=== PATIENT | female | born 1990 | race Caucasian/White ===

== ENCOUNTER → 2022-02-28 09:26 | Outpatient (CLI) | payer OTHER, SELFPAY ==
[2022-02-28 10:57] LABS: Add Manual Diff / Slide Review NO; Basophils Absolute Auto 0 /uL (0-100); Basophils Percent Auto 0.3 % (0-2); Eosinophils Absolute Auto 200 /uL (0-450); Eosinophils Percent Auto 1.8 % (2-4); Hemoglobin 11.7 g/dL (12.0-16.0); Lymphocytes Absolute Auto 1600 /uL (1100-4500); Lymphocytes Percent Auto 16.9 % (25-40); Mean Corpuscular HGB Conc 34.5 % (30-36); Mean Corpuscular Hemoglobin 32.7 PG (26-34); Mean Corpuscular Volume 94.7 fL (80-100); Monocytes Absolute Auto 700 /uL (0-900); Monocytes Percent Auto 7.2 % (3-14); Neutrophils Absolute Auto 6900 /uL (1500-7000); Neutrophils Percent Auto 73.8 % (50-75); Platelet Count 294 X10^3/uL (150-400); Red Blood Cell Count 3.59 X10^6/uL (4.0-5.2); Red Cell Distribution Width 13.1 % (11.6-14.8); White Blood Cell Count 9.3 X10^3/uL (4.5-11.0)
[2022-02-28 11:59] LABS: Alanine Aminotransferase 11 IU/L (<35); Albumin 3.6 g/dL (3.5-5.0); Albumin Globulin Ratio 1.2 (1.0-2.8); Alkaline Phosphatase 53 U/L (38-126); Aspartate Aminotransferase 23 IU/L (14-36); BUN Creatinine Ratio 12.3 (6-22); Bilirubin Total 0.2 mg/dL (0.2-1.3); Blood Urea Nitrogen 7 mg/dL (7-17); Calcium 8.3 mg/dL (8.4-10.2); Carbon Dioxide 26 mmol/L (22-32); Chloride 103 mmol/L (98-107); Estimated Glomerular Filt Rate > 60 mL/min (>60); GTT (PREG) 1 Hour PP 50gm Dose 132 mg/dL (76-139); Globulin 2.9 g/dL (1.7-4.1); Glucose 132 mg/dL (70-100); HEMOLYSIS < 15 (0-50); Potassium 4.1 mmol/L (3.4-5.1); Sodium 133 mmol/L (137-145); Total Protein 6.5 g/dL (6.3-8.2); Uric Acid 3.3 mg/dL (2.5-6.2)
== END ==
PROVIDERS: PCP Family Medicine; Referring Provider Obstetrics & Gynecology; Visit Provider Obstetrics & Gynecology
DX: O09.299 Supervision of pregnancy with other poor reproductive or obstetric history, unspecified trimester (principal)
CPT/HCPCS: 36415; 80053; 82950; 84550; 85025

== ENCOUNTER → 2022-04-02 07:47 | Outpatient (CLI) | payer OTHER, SELFPAY | PROVIDERS: PCP Pediatrics; Visit Provider Student in an Organized Health Care Education/Training Program | DX: R30.0 Dysuria (principal) | CPT/HCPCS: 87086 ==

== ENCOUNTER 2022-04-14 14:33 | Outpatient (CLI) | payer OTHER, SELFPAY ==
[2022-04-14 15:13] LABS: Add Manual Diff / Slide Review NO; Basophils Absolute Auto 0 /uL (0-100); Basophils Percent Auto 0.3 % (0-2); Eosinophils Absolute Auto 100 /uL (0-450); Eosinophils Percent Auto 1.3 % (2-4); Hematocrit 34.8 % (36-46); Hemoglobin 11.8 g/dL (12.0-16.0); Lymphocytes Absolute Auto 1400 /uL (1100-4500); Lymphocytes Percent Auto 13.4 % (25-40); Mean Corpuscular HGB Conc 33.9 % (30-36); Mean Corpuscular Hemoglobin 32.2 PG (26-34); Monocytes Absolute Auto 500 /uL (0-900); Monocytes Percent Auto 4.6 % (3-14); Neutrophils Absolute Auto 8600 /uL (1500-7000); Neutrophils Percent Auto 80.4 % (50-75); Platelet Count 286 X10^3/uL (150-400); Red Blood Cell Count 3.66 X10^6/uL (4.0-5.2); Red Cell Distribution Width 13.1 % (11.6-14.8); White Blood Cell Count 10.7 X10^3/uL (4.5-11.0)
[2022-04-14 16:12] LABS: Aspartate Aminotransferase 25 IU/L (14-36); BUN Creatinine Ratio 13.7 (6-22); Blood Urea Nitrogen 7 mg/dL (7-17); Estimated Glomerular Filt Rate > 60 mL/min (>60)
[2022-04-14 20:16] LABS: Protein (Total) Urine Random < 5 mg/dL (0-12); Protein Creatinine Ratio Urine 0.03 GRAM/24H
== END 2022-04-14 16:03 | disposition home or self-care (01) ==
LOC: LABOR 15:39 → OB 04-18 12:53
PROVIDERS: Referring Provider Obstetrics & Gynecology; Visit Provider Obstetrics & Gynecology
DX: Z34.83 Encounter for supervision of other normal pregnancy, third trimester (principal); Z3A.33 33 weeks gestation of pregnancy
CPT/HCPCS: 59025; 82570; 84156; 84450; 84550; 85025; G0378; G0379

== ENCOUNTER 2022-04-20 12:44 | Outpatient (CLI) | payer OTHER, SELFPAY | END 2022-04-20 13:20 | disposition home or self-care (01) | LOC: LABOR 13:52 → OB 04-25 10:15 | PROVIDERS: Referring Provider Obstetrics & Gynecology; Visit Provider Obstetrics & Gynecology | DX: O13.3 Gestational [pregnancy-induced] hypertension without significant proteinuria, third trimester (principal); Z3A.34 34 weeks gestation of pregnancy | CPT/HCPCS: 59025; G0378; G0379 ==

== ENCOUNTER → 2022-04-21 14:45 | Outpatient (CLI) | payer OTHER, SELFPAY ==
--- NOTE | 2022-04-21 14:46 | DI.US.S_ITS ---
PROCEDURE: US OB LIMITED INDICATIONS: Low lying placenta on 20 wk anatomy scan OUTSIDE/PRIOR DATING DATA: Last menstrual period (LMP): 08/21/2021 LMP-based estimated date of delivery (ODILIA): 05/28/2021. TECHNIQUE: Real-time scanning was performed of the fetus, with image documentation. COMPARISON: None. FINDINGS: A single living intrauterine gestation is present. Presentation: Vertex. Placenta: Placental position is posterior, without previa. Amniotic fluid index: 12.6 cm, normal range is 5-24 cm. heart rate: 130 beats per minute. Maternal cervical canal: 4.8 cm long. Clinically estimated gestational age: 34 weeks 5 days by outside ultrasound. IMPRESSION: Limited exam demonstrating single living intrauterine and no low lying placenta is seen on today's examination. Dictated by: Maldonado Ordonez [facility] Interpreted: Godwin Ruiz MD on 04/21/2022 at 17:04 Approved by: Godwin Ruiz M.D. on 04/22/2022 at 8:19
== END ==
PROVIDERS: PCP Pediatrics; Referring Provider Obstetrics & Gynecology; Visit Provider Obstetrics & Gynecology
DX: O44.43 Low lying placenta NOS or without hemorrhage, third trimester (principal); Z3A.34 34 weeks gestation of pregnancy
CPT/HCPCS: 76815

== ENCOUNTER 2022-04-26 14:21 | Outpatient (CLI) | payer OTHER, SELFPAY ==
--- NOTE | 2022-04-26 15:08 | PM.OBTRLD ---
Visit Information Visit Information Date of evaluation: 04/26/22 Primary OB Provider: Parminder Tovar Reason for Evaluation: Yes non-stress test Comments/Additional reasons for admission: Gestational HTN PFSH Medical History Allergic rhinitis Anxiety Asthma Bilateral tinnitus Chromhidrosis Folliculitis Migraine Palpitations Plantar wart Preeclampsia Psoriasis Recurrent cold sores Surgical History H/O wisdom tooth extraction H/O: History of removal of skin mole History of tonsillectomy Family History Mother Arthritis Endometriosis Hyperlipidemia Hypertension Age related osteoporosis Grandfather Hyperlipidemia Hypertension Stroke Grandmother Hyperlipidemia Hypertension Stroke Macular degeneration Father Melanoma Grandfather Leukemia Grandfather Laryngeal cancer Social History marital status: number of children: 1 household members: spouse and children lives independently: Yes housing: house pets and animals: Yes (1 dog) education level: college occupational status: employed current occupational exposures/hazards: No special yokasta needs: No travel history: over 6 months ago seatbelt use: always helmet use: Yes water heater temp set < 120 deg: Yes working smoke detector in home: Yes fire extinguisher in home: Yes carbon monox detector in home: Yes firearms in home: Yes firearms unloaded and locked: Yes do you feel safe at home: Yes Smoking Status: Never smoker second hand exposure: No alcohol intake: former substance use type: marijuana (back in college, not recently) during the past year weight has: remained stable well-balanced diet: daily or most days daily servings fruits/ve-4 caffeine: Yes Type(s) of exercise: regular exercise, weight lifting, yoga and additional (Circut training) Exam Vital Signs (past 8 hours): 123/77 HENMT Head: normal to inspection, normocephalic and atraumatic Eyes General: appearance normal, both eyes and all related structures Resp Effort & Inspection: normal respiratory effort and able to speak in complete sentences Auscultation: clear to auscultation bilaterally Cardio Rate: regular rate Rhythm: regular rhythm Heart Sounds: S1 normal, S2 normal and no murmurs GI Inspection: normal to inspection Palpation: soft and no hepatosplenomegaly Extrem Right lower extremity: normal to inspection Evaluation Evaluation Baseline heart rate: 130 Variability: Moderate (11-25) monitor accelerations: Present Monitor Decelerations: Absent Category of Tracing: Reactive Diagnosis, Plan/Disposition Final Diagnosis (1) Gestational hypertension affecting second : Status: Acute (2) History of delivery, antepartum: Status: Acute (3) : Status: Acute Plan/Disposition Plan: Continue routine PNC and weekly NST's OB Disposition: home
== END 2022-04-26 15:15 | disposition home or self-care (01) ==
LOC: LABOR 14:35 → OB 04-28 07:30
PROVIDERS: PCP Pediatrics; Referring Provider Obstetrics & Gynecology; Visit Provider Obstetrics & Gynecology
DX: O13.3 Gestational [pregnancy-induced] hypertension without significant proteinuria, third trimester (principal); Z3A.35 35 weeks gestation of pregnancy
CPT/HCPCS: 59025; G0378; G0379

== ENCOUNTER 2022-05-03 13:26 | Outpatient (CLI) | payer OTHER, SELFPAY | END 2022-05-03 14:30 | disposition home or self-care (01) | LOC: LABOR 14:16 → OB 05-05 07:23 | PROVIDERS: PCP Pediatrics; Referring Provider Obstetrics & Gynecology; Visit Provider Obstetrics & Gynecology | DX: O13.3 Gestational [pregnancy-induced] hypertension without significant proteinuria, third trimester (principal); Z3A.36 36 weeks gestation of pregnancy | CPT/HCPCS: 59025; G0378; G0379 ==

== ENCOUNTER → 2022-05-04 13:23 | Outpatient (CLI) | payer OTHER, SELFPAY ==
[2022-05-04 16:12] LABS: Creatinine Urine Random 150.4 mg/dL; Protein (Total) Urine Random 10 mg/dL (0-12); Protein Creatinine Ratio Urine 0.06 GRAM/24H
[2022-05-05 13:53] LABS: Strep Grp B PCR POS for Grp B Strep
== END ==
PROVIDERS: PCP Pediatrics; Visit Provider Obstetrics & Gynecology
DX: O09.299 Supervision of pregnancy with other poor reproductive or obstetric history, unspecified trimester (principal); Z3A.36 36 weeks gestation of pregnancy
CPT/HCPCS: 82570; 84156; 87653

== ENCOUNTER → 2022-05-04 13:57 | Outpatient (CLI) | payer OTHER, SELFPAY ==
[2022-05-04 15:44] LABS: Alanine Aminotransferase 12 IU/L (<35); Albumin 3.5 g/dL (3.5-5.0); Albumin Globulin Ratio 1.1 (1.0-2.8); Alkaline Phosphatase 92 U/L (38-126); Aspartate Aminotransferase 23 IU/L (14-36); Bilirubin Total 0.2 mg/dL (0.2-1.3); Blood Urea Nitrogen 8 mg/dL (7-17); Calcium 8.6 mg/dL (8.4-10.2); Carbon Dioxide 26 mmol/L (22-32); Chloride 102 mmol/L (98-107); Estimated Glomerular Filt Rate > 60 mL/min (>60); Globulin 3.2 g/dL (1.7-4.1); Glucose 111 mg/dL (70-100); HEMOLYSIS < 15 (0-50); Potassium 4.2 mmol/L (3.4-5.1); Sodium 135 mmol/L (137-145); Total Protein 6.7 g/dL (6.3-8.2); Uric Acid 5.2 mg/dL (2.5-6.2)
[2022-05-04 15:49] LABS: Add Manual Diff / Slide Review NO; Basophils Absolute Auto 0 /uL (0-100); Basophils Percent Auto 0.1 % (0-2); Eosinophils Absolute Auto 100 /uL (0-450); Hematocrit 36.3 % (36-46); Hemoglobin 12.4 g/dL (12.0-16.0); Lymphocytes Absolute Auto 1700 /uL (1100-4500); Lymphocytes Percent Auto 16.5 % (25-40); Mean Corpuscular HGB Conc 34.2 % (30-36); Mean Corpuscular Hemoglobin 32.1 PG (26-34); Mean Corpuscular Volume 93.8 fL (80-100); Monocytes Absolute Auto 600 /uL (0-900); Monocytes Percent Auto 5.7 % (3-14); Neutrophils Absolute Auto 7800 /uL (1500-7000); Neutrophils Percent Auto 76.7 % (50-75); Platelet Count 279 X10^3/uL (150-400); Red Blood Cell Count 3.87 X10^6/uL (4.0-5.2); Red Cell Distribution Width 12.9 % (11.6-14.8); White Blood Cell Count 10.2 X10^3/uL (4.5-11.0)
== END ==
PROVIDERS: PCP Pediatrics; Referring Provider Obstetrics & Gynecology; Visit Provider Obstetrics & Gynecology
DX: O09.299 Supervision of pregnancy with other poor reproductive or obstetric history, unspecified trimester (principal); Z3A.36 36 weeks gestation of pregnancy
CPT/HCPCS: 36415; 80053; 82570; 84156; 84550; 85025; 87081; 87186; 87653

== ENCOUNTER 2022-05-10 14:02 | Outpatient (CLI) | payer OTHER, SELFPAY | END 2022-05-10 15:59 | disposition home or self-care (01) | LOC: LABOR 14:11 → OB 05-12 08:14 | PROVIDERS: PCP Pediatrics; Referring Provider Obstetrics & Gynecology; Visit Provider Obstetrics & Gynecology | DX: O13.3 Gestational [pregnancy-induced] hypertension without significant proteinuria, third trimester (principal); Z3A.37 37 weeks gestation of pregnancy | CPT/HCPCS: 59025; G0378; G0379 ==

== ENCOUNTER → 2022-05-11 15:18 | Outpatient (CLI) | payer OTHER, SELFPAY ==
[2022-05-11 16:04] LABS: Add Manual Diff / Slide Review NO; Basophils Absolute Auto 0 /uL (0-100); Basophils Percent Auto 0.3 % (0-2); Eosinophils Absolute Auto 200 /uL (0-450); Eosinophils Percent Auto 2.3 % (2-4); Hematocrit 36.3 % (36-46); Hemoglobin 12.5 g/dL (12.0-16.0); Lymphocytes Absolute Auto 1600 /uL (1100-4500); Mean Corpuscular HGB Conc 34.3 % (30-36); Mean Corpuscular Hemoglobin 32.3 PG (26-34); Monocytes Absolute Auto 600 /uL (0-900); Neutrophils Absolute Auto 7900 /uL (1500-7000); Neutrophils Percent Auto 76.4 % (50-75); Platelet Count 268 X10^3/uL (150-400); Red Blood Cell Count 3.86 X10^6/uL (4.0-5.2); Red Cell Distribution Width 13.1 % (11.6-14.8); White Blood Cell Count 10.4 X10^3/uL (4.5-11.0)
[2022-05-11 16:18] LABS: Alanine Aminotransferase 16 IU/L (<35); Albumin 3.5 g/dL (3.5-5.0); Alkaline Phosphatase 107 U/L (38-126); Aspartate Aminotransferase 26 IU/L (14-36); BUN Creatinine Ratio 10.3 (6-22); Bilirubin Total 0.3 mg/dL (0.2-1.3); Blood Urea Nitrogen 7 mg/dL (7-17); Calcium 8.9 mg/dL (8.4-10.2); Carbon Dioxide 22 mmol/L (22-32); Chloride 105 mmol/L (98-107); Estimated Glomerular Filt Rate > 60 mL/min (>60); Globulin 3.4 g/dL (1.7-4.1); Glucose 95 mg/dL (70-100); HEMOLYSIS < 15 (0-50); Sodium 135 mmol/L (137-145); Total Protein 6.9 g/dL (6.3-8.2); Uric Acid 4.9 mg/dL (2.5-6.2)
[2022-05-11 21:10] LABS: Creatinine Urine Random 97.4 mg/dL; Protein (Total) Urine Random 12 mg/dL (0-12); Protein Creatinine Ratio Urine 0.12 GRAM/24H
== END ==
PROVIDERS: PCP Pediatrics; Referring Provider Obstetrics & Gynecology; Visit Provider Obstetrics & Gynecology
DX: O13.9 Gestational [pregnancy-induced] hypertension without significant proteinuria, unspecified trimester
CPT/HCPCS: 36415; 80053; 82570; 84156; 84550; 85025

== ENCOUNTER 2022-05-17 13:00 | Outpatient (CLI) | payer OTHER, SELFPAY | END 2022-05-17 13:58 | disposition home or self-care (01) | LOC: LABOR 13:02 → OB 05-18 08:26 | PROVIDERS: PCP Pediatrics; Referring Provider Obstetrics & Gynecology; Visit Provider Obstetrics & Gynecology | DX: Z01.818 Encounter for other preprocedural examination (principal); O13.3 Gestational [pregnancy-induced] hypertension without significant proteinuria, third trimester; Z3A.38 38 weeks gestation of pregnancy; Z20.822 Contact with and (suspected) exposure to COVID-19 | CPT/HCPCS: 59025; 87635; G0378; G0379 ==

== ENCOUNTER → 2022-05-17 14:09 | Outpatient (CLI) | payer OTHER, SELFPAY ==
[2022-05-17 14:32] LABS: COVID19 -Nasal RAPID Negative (Negative)
== END ==
PROVIDERS: PCP Pediatrics; Visit Provider Pediatrics
DX: Z01.812 Encounter for preprocedural laboratory examination (principal); Z20.822 Contact with and (suspected) exposure to COVID-19
CPT/HCPCS: 87635

== ENCOUNTER 2022-05-19 05:36 | Inpatient (IN) | payer OTHER, SELFPAY ==
--- NOTE | 2022-05-18 10:02 | P.HPOB_ITS ---
OB HPI Date/Time Date of admission: 05/19/22 Date Patient Seen: 05/19/22 Time Patient Seen: 07:15 History of Present Condition Chief complaint: INPT : 2 Para: 1 Estimated Date of Delivery: 05/28/22 Estimated Gestational Age (weeks): 38+4 Narrative: Sugar Porras is a 32 year old admitted now at 38+5 weeks EGA due to gestational hypertension requiring treatment with labetalol 100 mg PO BID for repeat section. PNC has been unremarkable with solid dating. GBS is negative. Indications Operative indications ( section): previous uterine surgery History of Present care: good care Dating criteria: LMP confirmed by 1st trimester US Ultrasounds: normal 1st trimester US and normal mid trimester US Obstetrical complications: gestational hypertension Medical complications: none Preadmission Labs Blood type: A (+) positive -: Antibody screen: negative, GBS status: positive, HBsAG: negative, HIV: negative and RPR/VDLR: negative -: Chlamydia screen: not detected and Gonorrhea screen: not detected -: Rubella: immune and Varicella: immune HCT: 36.3 HCAB: negative PAP: Normal Quad screen: Normal 1 hr GTT: 132 Prior (ies) History: CS x 1 Evaluation Evaluation Baseline heart rate: 135 Variability: Moderate (11-25) monitor accelerations: Present Monitor Decelerations: Absent Category of Tracing: Reactive PFSH Medical History Allergic rhinitis Anxiety Asthma Bilateral tinnitus Chromhidrosis Folliculitis Migraine Palpitations Plantar wart Preeclampsia Psoriasis Recurrent cold sores Surgical History H/O wisdom tooth extraction H/O: History of removal of skin mole History of tonsillectomy Family History Mother Arthritis Endometriosis Hyperlipidemia Hypertension Age related osteoporosis Grandfather Hyperlipidemia Hypertension Stroke Grandmother Hyperlipidemia Hypertension Stroke Macular degeneration Father Melanoma Grandfather Leukemia Grandfather Laryngeal cancer Social History marital status: number of children: 1 household members: spouse and children lives independently: Yes housing: house pets and animals: Yes (1 dog) education level: college occupational status: employed current occupational exposures/hazards: No special yokasta needs: No travel history: over 6 months ago seatbelt use: always helmet use: Yes water heater temp set < 120 deg: Yes working smoke detector in home: Yes fire extinguisher in home: Yes carbon monox detector in home: Yes firearms in home: Yes firearms unloaded and locked: Yes do you feel safe at home: Yes Smoking Status: Never smoker second hand exposure: No alcohol intake: former substance use type: marijuana (back in college, not recently) during the past year weight has: remained stable well-balanced diet: daily or most days daily servings fruits/ve-4 caffeine: Yes Type(s) of exercise: regular exercise, weight lifting, yoga and additional (Cir cut training) Meds Home Medications and Allergies Home Medications Medication Instructions Recorded Confirmed Type aspirin 81 mg tablet,delayed 81 mg PO DAILY 02/11/22 05/04/22 History release (Adult Aspirin Regimen) prenat.vits,rogelio,wmr-cwlm-hqrlx 1 tab PO DAILY 02/11/22 05/04/22 History mupirocin 2 % topical ointment 1 applic topical BID 1 week #15 03/18/22 05/04/22 Rx grams valacyclovir 500 mg tablet 500 mg PO BID #30 tabs 03/18/22 05/04/22 Rx alcaftadine 0.25 % eye drops 1 drp EYE-LEFT DAILY #3 mL 03/20/22 05/04/22 Rx metronidazole 0.75 % (37.5 mg/5 1 appful vaginal BEDTIME 5 days 03/24/22 05/04/22 Rx gram) vaginal gel #70 grams labetalol 100 mg tablet See Rx Instructions .Route 04/14/22 05/04/22 Rx .COMPLEX #30 tabs acyclovir 400 mg tablet 400 mg PO TID #90 tabs 05/04/22 05/04/22 Rx Allergies Allergy/AdvReac Type Severity Reaction Status Date / Time amoxicillin [AMOXICILLIN] Allergy Intermediate RASH Unverified 05/04/22 13:29 Penicillins [PENICILLINS] Allergy Intermediate RASH Unverified 05/04/22 13:29 cat dander AdvReac Intermediate Verified 05/04/22 13:29 cefaclor [From Ceclor] AdvReac Intermediate Hives Verified 05/04/22 13:29 house dust mite AdvReac Intermediate Verified 05/04/22 13:29 Review of Systems Review of Systems Narrative: Problem-specific ROS positives included in HPI OB Exam HENMT Head: normal to inspection, normocephalic and atraumatic Eyes General: appearance normal, both eyes and all related structures Resp Effort & Inspection: normal respiratory effort and able to speak in complete sentences Auscultation: clear to auscultation bilaterally Cardio Rate: regular rate Rhythm: regular rhythm Heart Sounds: S1 normal, S2 normal and no murmurs Extremities Lower extremity: Yes normal to inspection GI Inspection: normal to inspection Palpation: Yes soft and Yes no hepatosplenomegaly Uterus Location (Fundal Height): 38 Presentation: vertex Estimated Weight (lbs): 8 Objective Labs Result Diagrams: 05/19/22 06:15 Assessment and Plan Assessment and Plan Assessment and Plan narrative: ASSESSMENT 1. Intrauterine , Ward, 38+ 5 weeks gestational age 2. Prior section 3. GBS positive status 4. Penicillin and cephalosporin allergic PLAN 1. Admit for repeat section 2. Gentamicin/clindamycin antibiotic prophylaxis 3. See admission orders Time Spent with Patient Total time spent with greater than 50% in coordination of care (as documented) at patient's floor/unit and/or counseling patient:: 15-24 minutes
[2022-05-19 06:52] LABS: Hematocrit 35.3 % (36-46); Hemoglobin 12.2 g/dL (12.0-16.0); Mean Corpuscular HGB Conc 34.4 % (30-36); Mean Corpuscular Hemoglobin 32.7 PG (26-34); Platelet Count 280 X10^3/uL (150-400); Red Blood Cell Count 3.72 X10^6/uL (4.0-5.2); White Blood Cell Count 10.1 X10^3/uL (4.5-11.0)
[2022-05-19 06:53] LABS: Add Manual Diff / Slide Review YES
[2022-05-19 07:08] LABS: COVID19 -Nasal RAPID Negative (Negative)
[2022-05-19 07:15] VITALS: BP 118/81
--- NOTE | 2022-05-19 07:23 | PM.PREOP ---
Pre-operative Note COVID-19 COVID-19 status: Negative Result date/Date tested (Pos, Neg/Pending): 05/19/22 Criteria for continued procedure: Non-surgical alternatives not available or appropriate per current SOC Interval Note History & Physical reviewed/Exam performed by Physician: Yes Changes to H&P: No
[2022-05-19 07:52] LABS: Neutrophils Absolute Manual 6868 /uL (3000-5900); Total Cells Counted 100
[2022-05-19 07:53] LABS: RBC Morphology Normal Morphology
[2022-05-19] MEDS: ALBUTEROL HFA PREPACK 1 BOX MISC (08:25)
[2022-05-19] MEDS: GENTAMICIN IV (08:40)
[2022-05-19] MEDS: SODIUM CHLORIDE 0.9% IV (08:40)
[2022-05-19] MEDS: CLINDAMYCIN 900 MG/50 ML PIGGYBACK 50 MG IV (08:40)
--- NOTE | 2022-05-19 08:54 | SUR.OPER ---
Supine on padded OR bed, head on pillow, arms secured on padded arm boards at <90 degrees abduction, legs uncrossed, safety belt at thigh, tape over blanket over lower legs.
--- NOTE | 2022-05-19 09:12 | SUR.OPER ---
LIVE BABY GIRL TOB [id number]. BABY, CORD BLOOD AND PLACENTA GIVEN TO OB RN.
[2022-05-19 09:45] VITALS: BP 117/63; PULSE 72; RESP 18; TEMP 36.3; O2SAT 98
--- NOTE | 2022-05-19 09:47 | P.OP_ITS ---
Operative Date/Time/Diagnoses Date of procedure: 05/19/22 Time of procedure: 08:30 Pre-op diagnosis: Intrauterine gestation, cardoso, 38+5 weeks EGA Gestational hypertension Prior section Post-op diagnosis: same Procedure & Clinicians Procedure: Repeat section, low transverse cervical Same procedure as scheduled: Yes Indications: Sugar Porras is a 32 year old admitted now at 38+5 weeks EGA due to gestational hypertension requiring treatment with labetalol 100 mg PO BID for repeat section.? PNC has been unremarkable with solid dating.? GBS is negative. Surgeon: Parminder Tovar Drafter Tool Design: Radha Sharp Reason for Drafter Tool Design: Drafter Tool Design required for the safe, effective, and timely completion of this surgery. Anesthesia Type: Spinal Operative Notes Findings: Viable female infant BW 3970 gms (8 lbs. 12 oz.), Apgars 8/9, delivered from the vertex presentation. Normal gravid anatomy. Closure Type: primary Specimen(s): cord blood Intraoperative meds administered: Ketorolac and Pitocin Applied: Catheter Estimated Blood Loss (mL): 600 Blood products transfused: none Procedure in detail: With her informed written consent, the patient was taken to the operating room and placed in the supine position for a repeat section procedure, for the indication(s) above. The abdomen was prepped and draped in the usual manner for section and a pre-surgical timeout was taken per [facility] OR protocol. Once effective anesthesia was confirmed, a 15 cm transverse Pfannenstiel incision was made in the skin and taken down through the subcutaneous tissues to the deep fascia. The deep fascia was incised transversely, the rectus abdominal eyes bluntly and sharply, and the peritoneal cavity entered without difficulty. The lower uterine segment was visualized and the position/presentation palpated. A transverse incision at or above the vesicouterine reflection was made with Metzenbaum scissors and transverse hysterotomy performed near the midline. Amniotomy revealed clear fluid. The incision was extended bilaterally with digital traction and the was delivered without difficulty from the vertex presentation. CAN x 2 noted and reduced prior to delivery of the shoulders. The was vigorous and cord clamping delayed for 60 seconds. The placenta was delivered intact using gentle cord traction and fundal massage.The uterine cavity was then cleared of any clot/debris first with a sloppy wet lap tape followed by a dry lap tape. Ring forceps were then applied to the angles and the midline of the incised MITCHELL. A primary closure of the uterus was then accomplished with #1 CCGS in a running interlocking stitch followed by a 2nd layer of #1 CCGS in a running interlocking imbricating stitch. No additional sutures were required to achieve complete hemostasis. Once pelvic hemostasis was assured, the bladder flap and anterior peritoneum were closed with a running 2-0 Vicryl suture and the fascia closed with #1 Vicryl in a running stitch initiated at both angles and tying separately near the midline. The subcutaneous tissues were reapproximated with 2-0 plain catgut suture using inverted interrupted stitches. The skin edges were then brought together with 4-0 Monocryl in a subcuticular closure and the incision was reinforced with 1' Steri-Strips. An appropriate compression dressing was applied and the patient transferred to PACU for recovery and subsequent transfer to the Center for recuperation. Complications: none [place] Baby 1: Infant Gender: Female Presentation: vertex Position: Left Occiput Anterior Placental Delivery Description: Spontaneous and Expressed Cord Vessel Description: 3 Vessels and Nuchal Cord (x 2) score (1 min): 8 score (5 min): 9 weight: 8 lb 12.038 oz Post-operative Condition: stable Disposition: PACU Aftercare: routine postop
[2022-05-19 09:52] VITALS: BP 118/63; PULSE 75; RESP 15; O2SAT 98
[2022-05-19 09:56] VITALS: BP 115/69; PULSE 77; RESP 15; O2SAT 98
[2022-05-19 10:01] VITALS: BP 107/62; PULSE 65; RESP 17; O2SAT 97
--- NOTE | 2022-05-19 10:10 | SUR.PHASEI ---
Pt A&Ox4, denies any distress, fundus is firm, VSS, and ready to transfer to room.
[2022-05-19] MEDS: ONDANSETRON 4 MG/2 ML INJ IV (11:00)
[2022-05-19] MEDS: LACTATED RINGERS 1,000 ML 100 ML IV (11:00)
[2022-05-19] MEDS: diphenhydrAMINE 50 MG/ML VIAL 25 MG IV ×2 (11:57→19:59)
[2022-05-19] MEDS: OXYCODONE IR 5 MG TABLET PO ×2 (14:14→16:39)
[2022-05-19] MEDS: ACETAMINOPHEN 325 MG TABLET 650 MG PO (14:15)
[2022-05-19] MEDS: NALBUPHINE 20 MG/ML AMPUL 2.5 MG IV ×2 (16:15→19:58)
[2022-05-19] MEDS: KETOROLAC 30 MG/ML VIAL IV ×2 (16:25→23:14)
[2022-05-19] MEDS: METOCLOPRAMIDE 10 MG/2 ML INJ IV (19:59)
[2022-05-19] MEDS: LANOLIN OINT 7 GM 1 APPLIC TOP (20:00)
[2022-05-19] MEDS: DOCUSATE 100 MG CAPSULE 200 MG PO (22:07)
[2022-05-19] MEDS: ACYCLOVIR 400 MG TABLET PO (22:08)
[2022-05-20] MEDS: ACETAMINOPHEN 325 MG TABLET 650 MG PO ×4 (02:32→22:47)
[2022-05-20] MEDS: OXYCODONE IR 5 MG TABLET PO ×2 (02:32→09:43)
[2022-05-20] MEDS: KETOROLAC 30 MG/ML VIAL IV (05:05)
[2022-05-20 07:02] LABS: Hematocrit 31.7 % (36-46); Hemoglobin 10.8 g/dL (12.0-16.0)
[2022-05-20] MEDS: DOCUSATE 100 MG CAPSULE 200 MG PO ×2 (09:36→20:54)
[2022-05-20] MEDS: ACYCLOVIR 400 MG TABLET PO ×3 (09:39→20:55)
[2022-05-20] MEDS: IBUPROFEN 600 MG TABLET PO ×2 (12:20→19:44)
--- NOTE | 2022-05-20 13:37 | DI.CT.S_ITS ---
PROCEDURE: CT ABDOMEN PELVIS WO CON INDICATIONS: Post-op pain; R/O hematoma, abscess, fascial separation TECHNIQUE: Noncontrast 5 mm thick sections acquired from the diaphragms to the symphysis. 5 mm coronal and sagittal reformats were then performed. For radiation dose reduction, the following was used: automated exposure control, adjustment of mA and/or kV according to patient size. COMPARISON: None. FINDINGS: Image quality: Excellent. ABDOMEN: Lung bases: There is bibasilar atelectasis. Lung bases are clear. Heart size is normal. Solid organs: Liver is normal in size. Gallbladder is normal. Pancreas is normal in contours. Spleen is normal in size. No adrenal nodules. Kidneys are normal in size, without hydronephrosis or obstructive nephrolithiasis. There is a punctate calcification in the inferior pole of the right kidney which is nonobstructive. Peritoneum and bowel: Unenhanced bowel loops demonstrate normal wall thickness and caliber. No free fluid or air. Nodes and vessels: No retroperitoneal or mesenteric adenopathy by size criteria. Aorta and inferior vena cava are normal in caliber. Miscellaneous: No ventral hernias. PELVIS: Genitourinary: The uterus is enlarged consistent with recent . There are several small foci of free air in the anterior abdomen consistent with recent surgery. The bladder contains foci of air likely due to recent catheterization. No evidence of abscess, hematoma, or fascial separation. Miscellaneous: No inguinal hernias or adenopathy. Bones: No suspicious bony lesions. No vertebral body compression fractures. IMPRESSION: Post gravid uterus status post without complication. Dictated by: Luis Alberto Pollock M.D. on 05/20/2022 at 14:03 Approved by: Luis Alberto Pollock M.D. on 05/20/2022 at 14:17
--- NOTE | 2022-05-20 13:40 | PM.OBPN.1 ---
Subjective - OB Subjective Patient comments: incisional pain baby status: doing well feeding status: exclusively breast feeding Narrative: Patient initially had severe nausea postop which resolved with placement a scopolamine patch and severe itching which was relieved with Benadryl and Nubain. Overnight she is done very well and has started passing gas with no further nausea and vomiting. Her lochia is minimal. Earlier today the patient however began having severe left-sided incisional pain when she began ambulating and CT obtained to rule out hematoma/abscess/fascial separation which is reported be negative. Patient was switched from oxycodone to hydromorphone which has provided significant improvement in her pain relief. Date Patient Seen: 05/20/22 Time Patient Seen: 13:40 Exam Vital Signs (past 8 hours): Oxygen Delivery Method Room Air Const General: cooperative and comfortable Nutritional Appearance: average body habitus Orientation: alert and oriented x3 HENMT Head: normal to inspection, atraumatic and abrasion Ears: hearing grossly normal bilaterally Face and sinus: face symmetric Eyes General: appearance normal, both eyes and all related structures Conjunctivae: conjunctivae normal Sclera: sclerae normal EOM: EOM intact bilaterally Neck Neck: normal visual inspection Resp Effort & Inspection: normal respiratory effort and able to speak in complete sentences Auscultation: clear to auscultation bilaterally Cardio Rate: regular rate Rhythm: regular rhythm Heart Sounds: S1 normal, S2 normal and no murmurs GI Inspection: normal to inspection and incision (Surgical dressing clean and dry) Palpation: soft, no hepatosplenomegaly, mass (Firm, tender fundus, U-2) and tender (Mild, diffuse postsurgical tenderness) External Female Exam: other (No significant bleeding noted) Extrem General: no calf tenderness Psych Appearance: grossly normal Mental Status: mental status grossly normal Speech and Movement: speech and movement normal Mood: congruent mood Affect: normal affect Attitude: cooperative Thought Process: normal Thought Content: normal Judgment: judgment good Objective Imaging ABD/PELV CT: My impression: Negative for hematoma, abscess, or fascial separation Labs Result Diagrams: 05/20/22 06:32 Labs: Laboratory Results - last 24 hr 05/20/22 06:32 Hgb 10.8 L Hct 31.7 L Assessment & Plan Plan day: 1 plan OB: routine postop care Comments: Anticipate discharge 05/21/2022 Time Spent With Patient Time: Total time spent is greater than 50% in coordination of care (as documented) at patient's floor/unit and/or counseling patient: Time with patient: 15-24 minutes
[2022-05-20] MEDS: HYDROMORPHONE 4 MG TABLET PO ×4 (13:44→22:47)
[2022-05-21] MEDS: IBUPROFEN 600 MG TABLET PO ×2 (01:38→07:55)
[2022-05-21] MEDS: HYDROMORPHONE 4 MG TABLET PO ×4 (01:39→10:49)
[2022-05-21] MEDS: ACETAMINOPHEN 325 MG TABLET 650 MG PO ×2 (04:51→10:46)
--- NOTE | 2022-05-21 08:34 | PM.OBDS.1 ---
Discharge Providers Provider Date of admission: 05/19/22 05:36 Discharge Date: 05/21/22 Primary care physician: Colby Cervantes MD Consults: 05/19/22 10:11 Consult to Photolithographer Routine Comment: Discharge provider: Parminder Tovar MD Summary Hospital Course Date Patient Seen: 05/21/22 Time Patient Seen: 08:35 Diagnoses: Intrauterine gestation, Ward, 38+ 5 weeks gestational age, delivered by repeat section Prior delivery by section Gestational hypertension Hospital Course: On the morning of 05/19/2022, Sugar was admitted for and underwent an uneventful repeat section, the details of which are well summarized on my dictated operative note of that date. Following delivery the patient has done well with some initial difficulty with pain control, postoperative nausea, and postoperative itching. Adjustments in her pain management regimen and application of a scopolamine patch help resolve those issues. Due to the patient's significant incisional pain however, an abdominal/pelvic CT scan was performed on the afternoon of postoperative day 1 which showed only normal, anticipated postoperative changes. Her postoperative hemoglobin and hematocrit were consistent with observed operative losses and she has done well with prompt return of bowel and bladder function, she is ambulating independently, tolerating regular diet, and her pain is now well controlled with oral Dilaudid. She will be discharged at this time to home in an afebrile normotensive condition after counseling regarding precautionary symptoms, limitations activity, medications, and plans for follow-up. Medications at discharge will include resumption of her vitamins, Dilaudid 2-4 mg p.o. Q 3-4 hours as needed for pain dispensed 30, ibuprofen 600 mg p.o. q.6 hours as needed pain, Colace 200 mg p.o. b.i.d. times 15 days, and Zofran 8 mg ODT q.8 hours as needed nausea and vomiting. Patient's postoperative visit will be scheduled for 1 week after delivery at which time she will have an incision check and dressing removal. Peripartum Data Infant Delivery Method: Section Laceration Description: None Episiotomy description: None 1: Gender: Female Disposition of : home Status at Discharge Cognitive/behavioral status at discharge: oriented Functional status at discharge: independent ambulation Overall status at discharge: patient is progressing back to baseline Time Spent with Patient Time attestation: Total time spent providing and/or coordinating discharge services: Time spent: Less than 30 minutes Objective Labs Result Diagrams: 05/20/22 06:32 Exam Vital Signs (past 8 hours): Oxygen Delivery Method Room Air Const General: cooperative and comfortable Nutritional Appearance: average body habitus Orientation: alert and oriented x3 HENMT Head: normal to inspection, atraumatic and abrasion Ears: hearing grossly normal bilaterally Face and sinus: face symmetric Eyes General: appearance normal, both eyes and all related structures Conjunctivae: conjunctivae normal Sclera: sclerae normal EOM: EOM intact bilaterally Neck Neck: normal visual inspection Resp Effort & Inspection: normal respiratory effort and able to speak in complete sentences Auscultation: clear to auscultation bilaterally Cardio Rate: regular rate Rhythm: regular rhythm Heart Sounds: S1 normal, S2 normal and no murmurs GI Inspection: normal to inspection and incision (Compression dressing removed, incision intact, AquaCel applied) Palpation: soft, no hepatosplenomegaly, mass (Firm, moderately tender fundus, U -4) and tender (Mild, diffuse postsurgical tenderness) External Female Exam: other (No significant bleeding noted) Extrem General: no calf tenderness Psych Appearance: grossly normal Mental Status: mental status grossly normal Speech and Movement: speech and movement normal Mood: congruent mood Affect: normal affect Attitude: cooperative Thought Process: normal Thought Content: normal Judgment: judgment good Discharge Plan Discharge Plan Patient Disposition: Home Provider Discharge Comment: Please review the written instructions you received when you were discharged from the hospital. Your follow-up appointment will be scheduled for 1 week after your delivery and I look forward to seeing you then. If however in the meantime you have any issues, concerns, or problems, please contact me either through the office phone at [phone] or via the patient portal. Discharge orders & Medications Prescriptions: New docusate sodium 100 mg Capsule 200 mg PO BID 15 Days Qty: 60 2RF ibuprofen 600 mg Tablet 600 mg PO Q6H PRN (Reason: Fever/Mild Pain (1-3)) Qty: 60 2RF hydromorphone 4 mg Tablet 4 mg PO Q3H PRN (Reason: Pain, Severe (7-10)) 5 Days Qty: 30 0RF ondansetron 8 mg tablet,disintegrating 8 mg PO Q8H PRN (Reason: nausea and vomiting) Qty: 10 0RF Continued alcaftadine 0.25 % drops 1 drp EYE-LEFT DAILY Qty: 3 0RF prenat.vits,rogelio,[id number] Tablet 1 tab PO DAILY valacyclovir 500 mg tablet 500 mg PO BID Qty: 30 1RF Rx Instructions: Take 1 tab twice daily for 5 days with each cold sore outbreak Discontinued labetalol 100 mg tablet See Rx Instructions .ROUTE .COMPLEX Qty: 30 6RF Dose Instruction: TAKE 1 TABLET BY MOUTH TWICE DAILY Rx Instructions: TAKE 1 TABLET BY MOUTH TWICE DAILY aspirin [Adult Aspirin Regimen] 81 mg tablet,delayed release (DR/EC) 81 mg PO DAILY metronidazole 0.75 % gel 1 appful vaginal BEDTIME 5 Days Qty: 70 3RF mupirocin 2 % ointment 1 applic topical BID 7 Days Qty: 15 1RF acyclovir 400 mg tablet 400 mg PO TID Qty: 90 0RF Follow up/Referrals: Colby Cervantes MD [Primary Care Provider] - Parminder Tovar MD [Physician] - (Pt has one week incision check on 05/26/2022 @ 1115am Has 6 week follow up appt on 07/05/2022 @ 1530pm with Dr. Tovar) Discharge Health Status Multidrug resistant organism: No MDRO Diet/Activity/Treatments Diet: Diet as Tolerated Activity: As tolerated Skin/Wound/Dressing Care Report to your healthcare provider any signs of infection, such as:: chills, fever, increased pain, unusual drainage and unusual redness Dressing: Dressing will be removed at the time of your one-week postop visit. Visit Report/Discharge Packet Instructions: DI for , DI for and Nipple Soreness, DI for Prescription Opioid Use Discharge Data Primary Care Provider: Colby Cervantes
[2022-05-21] MEDS: DOCUSATE 100 MG CAPSULE 200 MG PO (10:44)
[2022-05-21 11:00] VITALS: BP 107/62; PULSE 65; RESP 17; TEMP 36.3
== END 2022-05-21 11:05 | disposition home or self-care (01) | DRG 788 ==
PROVIDERS: Admitting Provider Obstetrics & Gynecology; PCP Pediatrics; Referring Provider Obstetrics & Gynecology; Visit Provider Obstetrics & Gynecology
PROC: 10D00Z1 Extraction of Products of Conception, Low, Open Approach (ICD-10-PCS; CPT 59514; principal; 2022-05-19 07:45)
DX: O13.4 Gestational [pregnancy-induced] hypertension without significant proteinuria, complicating childbirth (principal); Z3A.38 38 weeks gestation of pregnancy; Z37.0 Single live birth; O99.824 Streptococcus B carrier state complicating childbirth; O34.211 Maternal care for low transverse scar from previous cesarean delivery; Z20.822 Contact with and (suspected) exposure to COVID-19
CPT/HCPCS: 36415; 59050; 59514; 59515; 74176; 85007; 85014; 85018; 85025; 86850; 86900; 86901; 87635; C9803; A9270; J0171; J1200; J1885; J2250; J2274; J2300; J2405; J2590; J2765

== ENCOUNTER 2022-05-25 21:36 | Observation (INO) | payer OTHER, SELFPAY ==
[2022-05-25 21:39] VITALS: PULSE 69; TEMP 37.2; O2SAT 98
--- NOTE | 2022-05-25 21:45 | DI.RAD.S_ITS ---
PROCEDURE: XR CHEST 1V INDICATIONS: high BP, post TECHNIQUE: One view of the chest was acquired. COMPARISON: None. FINDINGS: Surgical changes and devices: None. Lungs and pleura: There is bilateral pulmonary edema. Linear opacities in the lung bases likely represent mild atelectasis. A small right pleural effusion is present as well as a suspected small left effusion. Mediastinum: Mediastinal contours appear normal. Heart size is normal. Bones and chest wall: No suspicious bony lesions. Overlying soft tissues appear unremarkable. IMPRESSION: 1. Pulmonary edema with small pleural effusions. Dictated by: Albino Hwang M.D. on 05/25/2022 at 22:56 Approved by: Albino Hwang M.D. on 05/25/2022 at 22:57
--- NOTE | 2022-05-25 21:48 | ED_ITS ---
HPI - General Adult General Chief complaint: Hypertension Stated complaint: High BP Time Seen by Provider: 05/25/22 21:45 Source: patient Mode of arrival: Ambulatory Limitations: no limitations History of Present Illness HPI narrative: This is a 32-year-old female 6 days from with gestatio nal hypertension who noted a headache this evening with a blood pressure at home of 160/100 after multiple checks. Patient states she noticed a headache today which he thought was atypical because she is been on ibuprofen and Tylenol for her . She is had a little bit of mild chest discomfort shortness of breath. Patient has not noticed increasing swelling in her extremities. No fevers, no lightheadedness or passing out, no nausea or vomiting, no other GI or urinary symptoms. She is had 2 bowel movements since her surgery and been home. She states her vaginal bleeding has been tapering off. No urinary symptoms. Patient states that she did have to take labetalol for 2 weeks for her 1st . Related Data Home Medications Medication Instructions Recorded Confirmed prenrich.vits,rogelio,[id number] 1 tab PO DAILY 02/11/22 05/19/22 Previous Rx's Medication Instructions Recorded valacyclovir 500 mg tablet 500 mg PO BID #30 tabs 03/18/22 alcaftadine 0.25 % eye drops 1 drp EYE-LEFT DAILY #3 mL 03/20/22 docusate sodium 100 mg capsule 200 mg PO BID 15 days #60 caps 05/21/22 hydromorphone 4 mg tablet 4 mg PO Q3H PRN Pain, Severe 05/21/22 (7-10) 5 days #30 tabs ibuprofen 600 mg tablet 600 mg PO Q6H PRN Fever/Mild Pain 05/21/22 (1-3) #60 tabs ondansetron 8 mg disintegrating 8 mg PO Q8H PRN nausea and 05/21/22 tablet vomiting #10 tabs Allergies Allergy/AdvReac Type Severity Reaction Status Date / Time amoxicillin [AMOXICILLIN] Allergy Intermediate RASH Verified 05/19/22 09:36 Penicillins [PENICILLINS] Allergy Intermediate RASH Verified 05/19/22 09:36 cat dander AdvReac Intermediate Verified 05/19/22 09:36 cefaclor [From Ceclor] AdvReac Intermediate Hives Verified 05/19/22 09:36 house dust mite AdvReac Intermediate Verified 05/19/22 09:36 Review of Systems Review of Systems ROS Unobtainable: All systems reviewed & are unremarkable except as noted in HPI and below Patient History Medical History Allergic rhinitis Anxiety Asthma Bilateral tinnitus Chromhidrosis Folliculitis Migraine Palpitations Plantar wart Preeclampsia Psoriasis Recurrent cold sores Surgical History H/O wisdom tooth extraction H/O: History of removal of skin mole History of tonsillectomy Family History Mother Arthritis Endometriosis Hyperlipidemia Hypertension Age related osteoporosis Grandfather Hyperlipidemia Hypertension Stroke Grandmother Hyperlipidemia Hypertension Stroke Macular degeneration Father Melanoma Grandfather Leukemia Grandfather Laryngeal cancer Social History marital status: number of children: 1 household members: spouse and children lives independently: Yes housing: house pets and animals: Yes (1 dog) education level: college occupational status: employed current occupational exposures/hazards: No special yokasta needs: No travel history: over 6 months ago seatbelt use: always helmet use: Yes water heater temp set < 120 deg: Yes working smoke detector in home: Yes fire extinguisher in home: Yes carbon monox detector in home: Yes firearms in home: Yes firearms unloaded and locked: Yes do you feel safe at home: Yes Smoking Status: Never smoker second hand exposure: No alcohol intake: former substance use type: marijuana during the past year weight has: remained stable well-balanced diet: daily or most days daily servings fruits/ve-4 caffeine: Yes Type(s) of exercise: regular exercise, weight lifting, yoga and additional Smoking Status: Never smoker Exam Narrative Exam Narrative: GENERAL: Alert and oriented x three, female in mild distress HEENT: Head normocephalic, atraumatic, EOMI, pupils reactive, face symmetric, moist mucous membranes NECK: Supple, full range of motion CARDIOVASCULAR: Regular rate and rhythm without murmurs, rubs or gallops. RESPIRATORY: Breath sounds equal bilaterally, no wheezes rales or rhonchi. Patient pumping breastmilk on exam. ABDOMEN: Soft, nontender. Normoactive bowel sounds all 4 quadrants. No guarding or rebound, rigidity, no mass : No CVA tenderness EXTREMITIES: Normal range of motion, no clubbing. Mild bilateral lower extremity edema. Neurovascularly intact NEUROLOGICAL: Cranial nerves II through XII grossly intact. Moving all extremities. DTRs brisk bilateral lower extremities at the patella SKIN: Warm, dry, no petechiae, no rashes or lesions. Initial Vital Signs Initial Vital Signs: Vital Signs Temperature 98.9 F 05/25/22 21:39 Pulse Rate 69 05/25/22 21:39 Pulse Oximetry 98 05/25/22 21:39 Oxygen Delivery Method 05/25/22 21:39 Course Orders Ordered: ED Orders 05/25/22 21:45 Chest [XR chest 1V] Stat 05/25/22 22:00 CBC Auto Diff [Complete Blood Count AUTO DIFF] Stat CMP [Comprehensive Metabolic Panel] Stat Lipase Stat PTT [Partial Thromboplastin Time] Stat Prothrombin Time INR Stat 05/25/22 22:01 EKG-12 Lead Stat 05/26/22 00:13 Urine Culture Stat Urine Microscopic Stat 05/26/22 00:33 COVID19 -Nasal RAPID/Pre-Proc Stat Acetaminophen (Acetaminophen 325 Mg Tablet) 650 mg PO Q6H PRN PRN Reason: Fever/Mild Pain (1-3) Docusate Sodium (Docusate 100 Mg Capsule) 200 mg PO DAILY [facility] Emollient Ointment (Lanolin Oint 7 Gm) 1 applic TOP PRN PRN PRN Reason: Post Delivery Hydromorphone HCl (Hydromorphone 4 Mg Tablet) 4 mg PO Q4HR PRN PRN Reason: Pain, Moderate (4-6) Magnesium Sulfate (Magnesium Sulfate) 20 gm in 500 mls @ 50 mls/hr IV CONT [facility] Last Admin: 05/26/22 03:38 Dose: 50 mls/hr Documented By: CG Co-signed By: BRV Ibuprofen (Ibuprofen 600 Mg Tablet) 600 mg PO Q6H PRN PRN Reason: Fever/Mild Pain (1-3) Labetalol HCl (Labetalol 100 Mg Tablet) 100 mg PO BID [facility] Last Admin: 05/26/22 00:53 Dose: 100 mg Documented By: GEOFF Naloxone HCl (Naloxone 0.4 Mg/Ml Vial) 0.2 mg IV Q2MIN PRN PRN Reason: Opiate Reversal Ondansetron HCl (Ondansetron 4 Mg/2 Ml Inj) 4 mg IV Q6H PRN PRN Reason: Nausea And Vomiting Vit/Calcium/Iron/Folic Ac ( Vit,Calc/Iron/Folic 1 Tablet) 1 tab PO DAILY LEO Discontinued Medications Acetaminophen (Acetaminophen 325 Mg Tablet) 975 mg PO NOW ONE Stop: 05/25/22 23:17 Last Admin: 05/25/22 23:28 Dose: 975 mg Documented By: PORSHA Furosemide (Furosemide 20 Mg/2 Ml Vial) 20 mg IV NOW ONE Stop: 05/26/22 02:04 Last Admin: 05/26/22 03:41 Dose: 20 mg Documented By: ILENE Magnesium Sulfate (Magnesium Sulfate) 4 gm in 100 mls @ 200 mls/hr IV NOW ONE Stop: 05/26/22 01:38 Last Infusion: 05/26/22 03:01 Dose: 0 mls/hr Documented By: SUNSHINE Co-signed By: DAVID Admin: 05/26/22 01:46 Dose: 200 mls/hr Documented By: GEOFF Co-signed By: SUNSHINE Ibuprofen (Ibuprofen 400 Mg Tablet) 800 mg PO NOW ONE Stop: 05/25/22 23:17 Last Admin: 05/25/22 23:28 Dose: Not Given Documented By: PORSHA Consultations Consultation #1: Dr. Sharp, OBGYN. Patient initial pressure in the emergency department non documented about 160. R slight bump in LFTs, chest x-ray shows pleural effusion no protein other lab for appropriate but on recheck patient's blood pressure 30s and then 149 systolic with a history of elevated blood pressure requiring labetalol for 2 weeks on her 1st delivery. She would like to admit the patient asked that we give labetalol she will evaluate and make a final decision about magnesium IV. Consultation #2: Dr. Sharp, stencil sprayer. Saw patient in the department and asked that we initiate magnesium. Accepts for observation overnight and put in orders herself. Vital Signs Vital signs: Vital Signs - 8 hr 05/25/22 21:39 05/25/22 23:21 05/26/22 00:17 Temperature 98.9 F Pulse Rate 69 68 Respiratory Rate 16 Blood Pressure 139/88 149/87 H Pulse Oximetry 98 99 Oxygen Delivery Method Room Air Room Air Medical Decision Making Lab Data Result diagrams: 05/25/22 22:00 05/25/22 22:00 Labs: Lab Results 05/25/22 05/25/22 05/25/22 Range/Units 22:00 22:00 22:00 WBC 6.6 (4.5-11.0) X10^3/uL RBC 3.56 L (4.0-5.2) X10^6/uL Hgb 11.5 L (12.0-16.0) g/dL Hct 33.5 L (36-46) % MCV 94.0 (80-100) fL MCH 32.4 (26-34) PG MCHC 34.5 (30-36) % RDW 12.5 (11.6-14.8) % Plt Count 328 (150-400) X10^3/uL Neut % (Auto) 62.2 (50-75) % Lymph % (Auto) 26.6 (25-40) % Guthrie % (Auto) 7.3 (3-14) % Eos % (Auto) 3.5 (2-4) % Baso % (Auto) 0.4 (0-2) % Neut # (Auto) 4100 (1611-1619) /uL Lymph # (Auto) 1800 (1362-2479) /uL Guthrie # (Auto) 500 (0-900) /uL Eos # (Auto) 200 (0-450) /uL Baso # (Auto) 0 (0-100) /uL PT 11.3 (10.1-12.7) SECONDS INR 1.0 (0.9-1.3) APTT 34 (26-36) SECONDS Sodium 138 (137-145) mmol/L Potassium 4.0 (3.4-5.1) mmol/L Chloride 107 (98-107) mmol/L Carbon Dioxide 24 (22-32) mmol/L BUN 14 (7-17) mg/dL Creatinine 0.83 (0.52-1.04) mg/dL Estimated GFR > 60 (>60) mL/min BUN/Creatinine Ratio 16.9 (6-22) Glucose 84 (70-100) mg/dL Calcium 8.5 (8.4-10.2) mg/dL Total Bilirubin 0.3 (0.2-1.3) mg/dL AST 41 H (14-36) IU/L ALT 34 (<35) IU/L Alkaline Phosphatase 93 (38-126) U/L Total Protein 6.7 (6.3-8.2) g/dL Albumin 3.6 (3.5-5.0) g/dL Globulin 3.1 (1.7-4.1) g/dL Albumin/Globulin Ratio 1.2 (1.0-2.8) Lipase 63 (23-300) U/L Urine RBC (0-5/HPF) Urine WBC (0-5/HPF) Urine Bacteria (None) Ur Culture Indicated? Micro UA Comment U Random Total Protein (0-12) mg/dL Urine Creatinine mg/dL Protein/Creatinin Ratio GRAM/24H SARS-CoV-2 (PCR) (Negative) 05/25/22 05/25/22 05/26/22 Range/Units 23:25 23:25 00:33 WBC (4.5-11.0) X10^3/uL RBC (4.0-5.2) X10^6/uL Hgb (12.0-16.0) g/dL Hct (36-46) % MCV (80-100) fL MCH (26-34) PG MCHC (30-36) % RDW (11.6-14.8) % Plt Count (150-400) X10^3/uL Neut % (Auto) (50-75) % Lymph % (Auto) (25-40) % Guthrie % (Auto) (3-14) % Eos % (Auto) (2-4) % Baso % (Auto) (0-2) % Neut # (Auto) (3334-1028) /uL Lymph # (Auto) (0716-9977) /uL Guthrie # (Auto) (0-900) /uL Eos # (Auto) (0-450) /uL Baso # (Auto) (0-100) /uL PT (10.1-12.7) SECONDS INR (0.9-1.3) APTT (26-36) SECONDS Sodium (137-145) mmol/L Potassium (3.4-5.1) mmol/L Chloride (98-107) mmol/L Carbon Dioxide (22-32) mmol/L BUN (7-17) mg/dL Creatinine (0.52-1.04) mg/dL Estimated GFR (>60) mL/min BUN/Creatinine Ratio (6-22) Glucose (70-100) mg/dL Calcium (8.4-10.2) mg/dL Total Bilirubin (0.2-1.3) mg/dL AST (14-36) IU/L ALT (<35) IU/L Alkaline Phosphatase (38-126) U/L Total Protein (6.3-8.2) g/dL Albumin (3.5-5.0) g/dL Globulin (1.7-4.1) g/dL Albumin/Globulin Ratio (1.0-2.8) Lipase (23-300) U/L Urine RBC 0-1/hpf (0-5/HPF) Urine WBC None seen (0-5/HPF) Urine Bacteria None seen (None) Ur Culture Indicated? Culture not indicate Micro UA Comment * U Random Total Protein 10 (0-12) mg/dL Urine Creatinine 52.4 mg/dL Protein/Creatinin Ratio 0.19 GRAM/24H SARS-CoV-2 (PCR) Negative (Negative) Urine Dip Bedside Urine Glucose Negative Bedside Urine Bilirubin - Negative Bedside Urine Ketone - Negative Urine Specific [employer] 1.02 Bedside Urine Occult Blood ++ Bedside Urine pH 6.0 Bedside Urine Protein - Negative Bedside Urine Urobilinogen - Negative Bedside Urine Nitrite - Negative Bedside Urine Leukocytes +/- 15 Esterase Point of care testing: Urine Dip Bedside Urine Glucose Negative Bedside Urine Bilirubin - Negative Bedside Urine Ketone - Negative Urine Specific [employer] 1.02 Bedside Urine Occult Blood ++ Bedside Urine pH 6.0 Bedside Urine Protein - Negative Bedside Urine Urobilinogen - Negative Bedside Urine Nitrite - Negative Bedside Urine Leukocytes +/- 15 Esterase Imaging Data Chest x-ray: Radiologist's Impression: [address] [address] XRay Report Signed Patient: Sugar Porras MR#: [id number] : 1990 Acct:[id number] Age/Sex: 32 / F Date of Service: 05/25/22 Loc: ED Accession Number: [id number] ?? Procedure: XR chest 1V Ordering Provider: Sameera White D.O. PROCEDURE:? XR CHEST 1V ? INDICATIONS:? high BP, post ? TECHNIQUE:? One view of the chest was acquired.? ? COMPARISON:? None. ? FINDINGS:? ? Surgical changes and devices:? None.? ? Lungs and pleura:? There is bilateral pulmonary edema.? Linear opacities in the lung bases likely represent mild atelectasis.? A small right pleural effusion is present as well as a suspected small left effusion. ? Mediastinum:? Mediastinal contours appear normal.? Heart size is normal.? ? Bones and chest wall:? No suspicious bony lesions.? Overlying soft tissues appear unremarkable.? ? IMPRESSION:? ? 1. Pulmonary edema with small pleural effusions. ? ? Dictated by: Albino Hwang M.D. on 05/25/2022 at 22:56 ? ? Approved by: Albino Hwang M.D. on 05/25/2022 at 22:57?? ECG Data Attestation: I personally reviewed and interpreted this ECG as follows: Interpretation: Sinus rhythm rate of 60 2p are 146 QRS is 76 and QTC of 406. MDM Narrative Medical decision making narrative: This is a pleasant 32-year-old female who presents with headache at home checked her blood pressure she was having headaches despite being on Tylenol ibuprofen for her had a blood pressure of 160 systolic 111 diastolic at home. Patient states she checked several times was still elevated called OBGYN who referred her to us. Overall labs appear reassuring with slight bump in AST patient's repeat vitals here are improved but not normalized. She does have increased DTRs on exam and edema on lower extremities. Discussed with on-call OBGYN who accepts for observation had start oral labetalol and then started IV magnesium. Patient was seen in the emergency department by Dr. Hampton. Discharge Plan Departure Patient Disposition: Admitted as Observation Clinical Impression: Pre-eclampsia Admit Date/Time: 05/26/22 00:37 Admit Provider: Radha Sharp
[2022-05-25 22:17] LABS: Add Manual Diff / Slide Review NO; Basophils Absolute Auto 0 /uL (0-100); Basophils Percent Auto 0.4 % (0-2); Eosinophils Absolute Auto 200 /uL (0-450); Eosinophils Percent Auto 3.5 % (2-4); Hematocrit 33.5 % (36-46); Hemoglobin 11.5 g/dL (12.0-16.0); Lymphocytes Absolute Auto 1800 /uL (1100-4500); Lymphocytes Percent Auto 26.6 % (25-40); Mean Corpuscular HGB Conc 34.5 % (30-36); Mean Corpuscular Hemoglobin 32.4 PG (26-34); Monocytes Absolute Auto 500 /uL (0-900); Monocytes Percent Auto 7.3 % (3-14); Neutrophils Absolute Auto 4100 /uL (1500-7000); Neutrophils Percent Auto 62.2 % (50-75); Platelet Count 328 X10^3/uL (150-400); Red Blood Cell Count 3.56 X10^6/uL (4.0-5.2); Red Cell Distribution Width 12.5 % (11.6-14.8); White Blood Cell Count 6.6 X10^3/uL (4.5-11.0)
[2022-05-25 22:19] LABS: Prothrombin Time 11.3 SECONDS (10.1-12.7)
[2022-05-25 22:22] LABS: PTT Partial Thromboplastin Tim 34 SECONDS (26-36)
[2022-05-25 22:24] LABS: Alanine Aminotransferase 34 IU/L (<35); Albumin 3.6 g/dL (3.5-5.0); Albumin Globulin Ratio 1.2 (1.0-2.8); Alkaline Phosphatase 93 U/L (38-126); Aspartate Aminotransferase 41 IU/L (14-36); BUN Creatinine Ratio 16.9 (6-22); Bilirubin Total 0.3 mg/dL (0.2-1.3); Blood Urea Nitrogen 14 mg/dL (7-17); Calcium 8.5 mg/dL (8.4-10.2); Carbon Dioxide 24 mmol/L (22-32); Chloride 107 mmol/L (98-107); Estimated Glomerular Filt Rate > 60 mL/min (>60); Globulin 3.1 g/dL (1.7-4.1); Glucose 84 mg/dL (70-100); HEMOLYSIS < 15 (0-50); Lipase 63 U/L (23-300); Sodium 138 mmol/L (137-145); Total Protein 6.7 g/dL (6.3-8.2)
[2022-05-25 23:21] VITALS: BP 139/88; PULSE 68; RESP 16; O2SAT 99
[2022-05-25] MEDS: ACETAMINOPHEN 325 MG TABLET 975 MG PO (23:28)
[2022-05-26] VITALS (21 sets, daily range): BP systolic 115–159; BP diastolic 66–95; PULSE 67–97; RESP 15–20; TEMP 36.3–37.2; O2SAT 96–99; BMI 30.4
[2022-05-26 00:52] LABS: COVID19 -Nasal RAPID Negative (Negative)
[2022-05-26] MEDS: LABETALOL 100 MG TABLET PO ×3 (00:53→21:08)
[2022-05-26 01:36] LABS: Creatinine Urine Random 52.4 mg/dL; Protein (Total) Urine Random 10 mg/dL (0-12); Protein Creatinine Ratio Urine 0.19 GRAM/24H
[2022-05-26] MEDS: MAGNESIUM SULFATE 4 GM/100 ML PIGGYBACK IV (01:46)
--- NOTE | 2022-05-26 02:06 | PM.GYNHP.1 ---
History of Present Illness History of Present Illness Reason for admission: other (preeclampsia ) Narrative: Sugar Porras is a 32 year old female who is 1 week post C section and is being readmitted for preeclampsia , with elevated BP's, symptomatic with a headache, increased pedal edema, is hyperreflexic and lab showed mildly elevated AST. Chest x-ray shows bilateral pulmonary edema with small pleural effusions. She had a repeat section 1 week ago, delivered at 38 weeks due to gestational hypertension. She was on labetalol for the last few weeks of . She has a history of preeclampsia with her prior . After her recent delivery delivery her blood pressures became normal and she did not need to continue the labetalol . Today she had onset of a headache lasting all day. In the evening she checked her blood pressure and noted an elevated BP of 150/98. She re-checked her BP and recorded 160/111. She also felt some chest pressure earlier and tried an inhaler. Denies any shortness of breath. She had had no prior headaches. She denies scotomata, nausea or upper abdominal pain. She has some lower abdominal incisional discomfort which has been decreasing. She has noticed worsening swelling in her leg since leaving the hospital. She has a history of preeclampsia with her 1st with onset at 34 weeks. [facility] Medical History Allergic rhinitis Anxiety Asthma Bilateral tinnitus Chromhidrosis Folliculitis Migraine Palpitations Plantar wart Preeclampsia Psoriasis Recurrent cold sores Surgical History H/O wisdom tooth extraction H/O: History of removal of skin mole History of tonsillectomy Family History Mother Arthritis Endometriosis Hyperlipidemia Hypertension Age related osteoporosis Grandfather Hyperlipidemia Hypertension Stroke Grandmother Hyperlipidemia Hypertension Stroke Macular degeneration Father Melanoma Grandfather Leukemia Grandfather Laryngeal cancer Social History marital status: number of children: 1 household members: spouse and children lives independently: Yes housing: house pets and animals: Yes (1 dog) education level: college occupational status: employed current occupational exposures/hazards: No special yokasta needs: No travel history: over 6 months ago seatbelt use: always helmet use: Yes water heater temp set < 120 deg: Yes working smoke detector in home: Yes fire extinguisher in home: Yes carbon monox detector in home: Yes firearms in home: Yes firearms unloaded and locked: Yes do you feel safe at home: Yes Smoking Status: Never smoker second hand exposure: No alcohol intake: former substance use type: marijuana during the past year weight has: remained stable well-balanced diet: daily or most days daily servings fruits/ve-4 caffeine: Yes Type(s) of exercise: regular exercise, weight lifting, yoga and additional Meds Home Medications and Allergies Home Medications Medication Instructions Recorded Confirmed Type prenat.vits,orgelio,pwx-gsnd-tvtzz 1 tab PO DAILY 02/11/22 05/19/22 History valacyclovir 500 mg tablet 500 mg PO BID #30 tabs 03/18/22 05/19/22 Rx alcaftadine 0.25 % eye drops 1 drp EYE-LEFT DAILY #3 mL 03/20/22 05/19/22 Rx docusate sodium 100 mg capsule 200 mg PO BID 15 days #60 caps 05/21/22 Rx hydromorphone 4 mg tablet 4 mg PO Q3H PRN Pain, Severe 05/21/22 Rx (7-10) 5 days #30 tabs ibuprofen 600 mg tablet 600 mg PO Q6H PRN Fever/Mild Pain 05/21/22 Rx (1-3) #60 tabs ondansetron 8 mg disintegrating 8 mg PO Q8H PRN nausea and 05/21/22 Rx tablet vomiting #10 tabs Allergies Allergy/AdvReac Type Severity Reaction Status Date / Time amoxicillin [AMOXICILLIN] Allergy Intermediate RASH Verified 05/19/22 09:36 Penicillins [PENICILLINS] Allergy Intermediate RASH Verified 05/19/22 09:36 cat dander AdvReac Intermediate Verified 05/19/22 09:36 cefaclor [From Ceclor] AdvReac Intermediate Hives Verified 05/19/22 09:36 house dust mite AdvReac Intermediate Verified 05/19/22 09:36 Exam Vital Signs (past 8 hours): - 05/25/22 21:39 05/25/22 23:21 05/26/22 00:17 Temperature 98.9 F Pulse Rate 69 68 Respiratory Rate 16 Blood Pressure 139/88 149/87 H Pulse Oximetry 98 99 Oxygen Delivery Method Room Air Room Air 05/26/22 00:53 Temperature Pulse Rate 76 Respiratory Rate Blood Pressure 159/95 H Pulse Oximetry Oxygen Delivery Method Oxygen Delivery Method Room Air Initial BP on ED registration SBP 160, (not recorded). Repeat BP 139/88, 149/87, 159/95. Narrative Exam Narrative: General: Patient teary with needing readmission into the hospital, otherwise no acute physical distress. Heart: Regular rate rhythm, negative for audible murmur Lungs: Decreased breath sounds at her right lung base, otherwise clear to auscultation Abdomen soft, nondistended, expected ashli-incisional tenderness, otherwise nontender Aquacel dressing in place Extremities 2+ bilateral pedal edema DTR brisk,4+ patellar reflexes, no clonus Objective Imaging Chest x-ray: Radiologist's impression: PROCEDURE:? XR CHEST 1V ? INDICATIONS:? high BP, post ? TECHNIQUE:? One view of the chest was acquired.? ? COMPARISON:? None. ? FINDINGS:? ? Surgical changes and devices:? None.? ? Lungs and pleura:? There is bilateral pulmonary edema.? Linear opacities in the lung bases likely represent mild atelectasis.? A small right pleural effusion is present as well as a suspected small left effusion. ? Mediastinum:? Mediastinal contours appear normal.? Heart size is normal.? ? Bones and chest wall:? No suspicious bony lesions.? Overlying soft tissues appear unremarkable.? ? IMPRESSION:? ? 1. Pulmonary edema with small pleural effusions. ? ? Dictated by: Albino Hwang M.D. on 05/25/2022 at 22:56 ? ? Approved by: Albino Hwang M.D. on 05/25/2022 at 22:57 ? Labs Result Diagrams: 05/25/22 22:00 05/25/22 22:00 Labs: Laboratory Results - last 24 hr 05/25/22 05/25/22 05/25/22 22:00 22:00 22:00 WBC 6.6 RBC 3.56 L Hgb 11.5 L Hct 33.5 L MCV 94.0 MCH 32.4 MCHC 34.5 RDW 12.5 Plt Count 328 Neut % (Auto) 62.2 Lymph % (Auto) 26.6 [place] % (Auto) 7.3 Eos % (Auto) 3.5 Baso % (Auto) 0.4 Neut # (Auto) 4100 Lymph # (Auto) 1800 [place] # (Auto) 500 Eos # (Auto) 200 Baso # (Auto) 0 PT 11.3 INR 1.0 APTT 34 Sodium 138 Potassium 4.0 Chloride 107 Carbon Dioxide 24 BUN 14 Creatinine 0.83 Estimated GFR > 60 BUN/Creatinine Ratio 16.9 Glucose 84 Calcium 8.5 Total Bilirubin 0.3 AST 41 H ALT 34 Alkaline Phosphatase 93 Total Protein 6.7 Albumin 3.6 Globulin 3.1 Albumin/Globulin Ratio 1.2 Lipase 63 U Random Total Protein Urine Creatinine Protein/Creatinin Ratio SARS-CoV-2 (PCR) 05/25/22 05/26/22 23:25 00:33 WBC RBC Hgb Hct MCV MCH MCHC RDW Plt Count Neut % (Auto) Lymph % (Auto) [place] % (Auto) Eos % (Auto) Baso % (Auto) Neut # (Auto) Lymph # (Auto) [place] # (Auto) Eos # (Auto) Baso # (Auto) PT INR APTT Sodium Potassium Chloride Carbon Dioxide BUN Creatinine Estimated GFR BUN/Creatinine Ratio Glucose Calcium Total Bilirubin AST ALT Alkaline Phosphatase Total Protein Albumin Globulin Albumin/Globulin Ratio Lipase U Random Total Protein 10 Urine Creatinine 52.4 Protein/Creatinin Ratio 0.19 SARS-CoV-2 (PCR) Negative EKG normal Assessment & Plan Assessment & Plan narrative: 32 yo P3 1 week status post repeat section for gestational hypertension, being readmitted with preeclampsia Admit I recommended magnesium sulfate for seizure prophylaxis, due to signs of preeclampsia with severe features with reaching severe range BP's between home and here, brisk reflexes, persistent headache despite pain medication, signs of significant fluid retention with pulmonary edema,and mild elevated AST. She agreed to magnesium sulfate Labetalol 100 mg p.o. b.i.d. Furosemide 20 mg IV x1. Observe for diuresis with the magnesium sulfate and furosemide. To consider recheck chest x-ray after diuresis verses follow lung exam. Time Spent With Patient Time with patient: 30 to 49 minutes with 50% spent counseling/coordinating care Critical Care time: I spent a total of [] minutes of critical care time on this patient's care today; this time is exclusive of procedural time.
[2022-05-26 02:22] LABS: Bacteria Urine None Seen; RBC Urine 0-1/HPF (0-5/HPF); WBC Urine None Seen (0-5/HPF)
[2022-05-26] MEDS: MAGNESIUM SULFATE 20 GM/500 ML IV.SOLN IV ×3 (03:38→22:34)
[2022-05-26] MEDS: FUROSEMIDE 20 MG/2 ML VIAL IV (03:41)
--- NOTE | 2022-05-26 04:52 | PC.NURSE ---
20 guage in right FA, SL'd Flushed well. 20 guage in left AC running 2g mag per hr. Both IV's started in ER.
--- NOTE | 2022-05-26 04:57 | PC.NURSE ---
0400- 800ml clear yellow urine
--- NOTE | 2022-05-26 04:57 | PC.NURSE ---
0430- 1000ml + clear yellow urine. Pt. overflowed hat.
[2022-05-26] MEDS: ACETAMINOPHEN 325 MG TABLET 650 MG PO ×3 (05:26→21:08)
--- NOTE | 2022-05-26 06:32 | PC.NURSE ---
0520- 1000ml clear, yellow urine
[2022-05-26] MEDS: IBUPROFEN 600 MG TABLET PO ×2 (07:44→21:08)
[2022-05-26] MEDS: PRENATAL VIT,CALC/IRON/FOLIC 1 TABLET 1 TAB PO (08:59)
[2022-05-26] MEDS: DOCUSATE 100 MG CAPSULE 200 MG PO (09:00)
[2022-05-26] MEDS: HYDROMORPHONE 4 MG TABLET PO (09:25)
[2022-05-26 10:38] LABS: Magnesium 4.7 mg/dL (1.6-2.3)
--- NOTE | 2022-05-26 10:38 | PC.NURSE ---
1025 Notified of Vitals, c/o of Headache was given dilaudid with resolution, Urine output >1200. continues on Magnesium; patient wanting to talk to . Dr Evans will be over when she can.
[2022-05-26] MEDS: METOCLOPRAMIDE 10 MG/2 ML INJ IV (13:11)
[2022-05-26] MEDS: KETOROLAC 30 MG/ML VIAL 15 MG IV (13:11)
[2022-05-26] MEDS: SUMAtriptan 20 MG SPRAY NASAL ×2 (13:11→21:54)
--- NOTE | 2022-05-26 14:14 | P.PN_ITS ---
Subjective Subjective Date Patient Seen: 05/26/22 Time Patient Seen: 11:45 Interval history: She reports that she still has a headache, after Tylenol, ibuprofen and Dilaudid. Headache has become more severe, migraine now. She did have her morning caffeine. Has a remote history of migraines. Used a migraine medication the past, uncertain what med. Denies scotomata, shortness of breath, chest pressure or pain, nausea and upper abdominal pain. Reports some ongoing incisional discomfort, has been gradually improving, relieved with pain meds. Having normal BMs, though mildly hard. is here visiting with the baby so she can not breastfeed. She does have her breast pump, pumping as well to take breast milk home. She is anxious for discharge when the magnesium sulfate stops. Her BP has been controlled on the labetalol and currently on magnesium sulfate. Exam Vital Signs (past 8 hours): - 05/26/22 07:00 05/26/22 08:08 05/26/22 09:00 Temperature 97.6 F 98.3 F Pulse Rate 74 91 H 97 H Respiratory Rate 15 Blood Pressure 127/73 124/78 135/82 Pulse Oximetry 97 97 Oxygen Delivery Method 05/26/22 10:00 05/26/22 10:20 05/26/22 10:34 Temperature 98.0 F Pulse Rate 77 77 Respiratory Rate 19 Blood Pressure 120/68 120/68 Pulse Oximetry 97 Oxygen Delivery Method Room Air 05/26/22 12:00 05/26/22 13:56 Temperature 97.8 F 98.3 F Pulse Rate 79 93 H Respiratory Rate 17 17 Blood Pressure 115/66 132/78 Pulse Oximetry 96 97 Oxygen Delivery Method Oxygen Delivery Method Room Air Narrative Exam Narrative: General: Well-appearing female in no acute distress Heart: Regular rate rhythm, negative for audible murmur Lungs: Decreased breath sounds at her right base, otherwise good air movement. No rales or rhonchi. No wheezes. Abdomen soft, nondistended, nontender except for mild tenderness above her dress ing. Aquacel dressing is intact, dry. Extremities: Mild to 1+ pedal edema, decreased. DTR: 4+ patellar reflex, no clonus Objective Labs Result Diagrams: 05/26/22 17:15 05/26/22 17:15 Labs: Laboratory Results - last 24 hr 05/25/22 05/25/22 05/25/22 22:00 22:00 22:00 WBC 6.6 RBC 3.56 L Hgb 11.5 L Hct 33.5 L MCV 94.0 MCH 32.4 MCHC 34.5 RDW 12.5 Plt Count 328 Neut % (Auto) 62.2 Lymph % (Auto) 26.6 [place] % (Auto) 7.3 Eos % (Auto) 3.5 Baso % (Auto) 0.4 Neut # (Auto) 4100 Lymph # (Auto) 1800 [place] # (Auto) 500 Eos # (Auto) 200 Baso # (Auto) 0 PT 11.3 INR 1.0 APTT 34 Sodium 138 Potassium 4.0 Chloride 107 Carbon Dioxide 24 BUN 14 Creatinine 0.83 Estimated GFR > 60 BUN/Creatinine Ratio 16.9 Glucose 84 Calcium 8.5 Magnesium Total Bilirubin 0.3 AST 41 H ALT 34 Alkaline Phosphatase 93 Total Protein 6.7 Albumin 3.6 Globulin 3.1 Albumin/Globulin Ratio 1.2 Lipase 63 Urine RBC Urine WBC Urine Bacteria Ur Culture Indicated? Micro UA Comment U Random Total Protein Urine Creatinine Protein/Creatinin Ratio SARS-CoV-2 (PCR) 05/25/22 05/25/22 05/26/22 23:25 23:25 00:33 WBC RBC Hgb Hct MCV MCH MCHC RDW Plt Count Neut % (Auto) Lymph % (Auto) [place] % (Auto) Eos % (Auto) Baso % (Auto) Neut # (Auto) Lymph # (Auto) [place] # (Auto) Eos # (Auto) Baso # (Auto) PT INR APTT Sodium Potassium Chloride Carbon Dioxide BUN Creatinine Estimated GFR BUN/Creatinine Ratio Glucose Calcium Magnesium Total Bilirubin AST ALT Alkaline Phosphatase Total Protein Albumin Globulin Albumin/Globulin Ratio Lipase Urine RBC 0-1/hpf Urine WBC None seen Urine Bacteria None seen Ur Culture Indicated? Culture not indicate Micro UA Comment * U Random Total Protein 10 Urine Creatinine 52.4 Protein/Creatinin Ratio 0.19 SARS-CoV-2 (PCR) Negative 05/26/22 09:55 WBC RBC Hgb Hct MCV MCH MCHC RDW Plt Count Neut % (Auto) Lymph % (Auto) [place] % (Auto) Eos % (Auto) Baso % (Auto) Neut # (Auto) Lymph # (Auto) [place] # (Auto) Eos # (Auto) Baso # (Auto) PT INR APTT Sodium Potassium Chloride Carbon Dioxide BUN Creatinine Estimated GFR BUN/Creatinine Ratio Glucose Calcium Magnesium 4.7 H Total Bilirubin AST ALT Alkaline Phosphatase Total Protein Albumin Globulin Albumin/Globulin Ratio Lipase Urine RBC Urine WBC Urine Bacteria Ur Culture Indicated? Micro UA Comment U Random Total Protein Urine Creatinine Protein/Creatinin Ratio SARS-CoV-2 (PCR) PFSH Medical History Allergic rhinitis Anxiety Asthma Bilateral tinnitus Chromhidrosis Folliculitis Migraine Palpitations Plantar wart Preeclampsia Psoriasis Recurrent cold sores Surgical History H/O wisdom tooth extraction H/O: History of removal of skin mole History of tonsillectomy Family History Mother Arthritis Endometriosis Hyperlipidemia Hypertension Age related osteoporosis Grandfather Hyperlipidemia Hypertension Stroke Grandmother Hyperlipidemia Hypertension Stroke Macular degeneration Father Melanoma Grandfather Leukemia Grandfather Laryngeal cancer Social History marital status: number of children: 1 household members: spouse and children lives independently: Yes housing: house pets and animals: Yes (1 dog) education level: college occupational status: employed current occupational exposures/hazards: No special yokasta needs: No travel history: over 6 months ago seatbelt use: always helmet use: Yes water heater temp set < 120 deg: Yes working smoke detector in home: Yes fire extinguisher in home: Yes carbon monox detector in home: Yes firearms in home: Yes firearms unloaded and locked: Yes do you feel safe at home: Yes Smoking Status: Never smoker second hand exposure: No alcohol intake: former substance use type: marijuana during the past year weight has: remained stable well-balanced diet: daily or most days daily servings fruits/ve-4 caffeine: Yes Type(s) of exercise: regular exercise, weight lifting, yoga and additional Assessment & Plan Assessment and plan (1) Preeclampsia in period: Status: Acute (2) Pulmonary edema: Status: Acute Assessment & Plan narrative: She is diuresing well. Lungs still with decreased BS in her lower right lung field Continue magnesium sulfate for 24 hours, discontinue at 2:00 a.m. Will increase her magnesium sulfate drip to 2.5 grams/hour as magnesium level was 4.7 less than 2 hours ago and reflexes are still brisk. Will recheck magnesium level 6 hours after increasing the prep with repeat prevents labs. Continue labetalol 100 mg p.o. b.i.d. Toradol IV and Reglan 10 mg IV ordered for the migraine. Recheck chest x-ray in the morning. Time Spent With Patient Critical Care time: I spent a total of [] minutes of critical care time on this patient's care today; this time is exclusive of procedural time. Quality VTE Deep Vein Thrombosis/Pulmonary Embolism Present on Admission: Yes
[2022-05-26 17:23] LABS: Add Manual Diff / Slide Review NO; Basophils Absolute Auto 0 /uL (0-100); Basophils Percent Auto 0.2 % (0-2); Eosinophils Absolute Auto 100 /uL (0-450); Eosinophils Percent Auto 1.2 % (2-4); Hematocrit 35.9 % (36-46); Hemoglobin 12.5 g/dL (12.0-16.0); Lymphocytes Absolute Auto 900 /uL (1100-4500); Lymphocytes Percent Auto 7.4 % (25-40); Mean Corpuscular HGB Conc 34.8 % (30-36); Mean Corpuscular Hemoglobin 32.7 PG (26-34); Mean Corpuscular Volume 94.1 fL (80-100); Monocytes Absolute Auto 500 /uL (0-900); Monocytes Percent Auto 4.6 % (3-14); Neutrophils Absolute Auto 10100 /uL (1500-7000); Neutrophils Percent Auto 86.6 % (50-75); Platelet Count 368 X10^3/uL (150-400); Red Blood Cell Count 3.82 X10^6/uL (4.0-5.2); Red Cell Distribution Width 12.9 % (11.6-14.8); White Blood Cell Count 11.7 X10^3/uL (4.5-11.0)
[2022-05-26 17:43] LABS: Alanine Aminotransferase 31 IU/L (<35); Albumin 3.2 g/dL (3.5-5.0); Albumin Globulin Ratio 0.9 (1.0-2.8); Alkaline Phosphatase 93 U/L (38-126); Aspartate Aminotransferase 33 IU/L (14-36); BUN Creatinine Ratio 12.3 (6-22); Bilirubin Total 0.3 mg/dL (0.2-1.3); Blood Urea Nitrogen 9 mg/dL (7-17); Calcium 7.3 mg/dL (8.4-10.2); Carbon Dioxide 23 mmol/L (22-32); Chloride 103 mmol/L (98-107); Estimated Glomerular Filt Rate > 60 mL/min (>60); Globulin 3.5 g/dL (1.7-4.1); Glucose 133 mg/dL (70-100); HEMOLYSIS < 15 (0-50); Sodium 137 mmol/L (137-145); Total Protein 6.7 g/dL (6.3-8.2)
[2022-05-26 17:46] LABS: Magnesium 5.9 mg/dL (1.6-2.3)
--- NOTE | 2022-05-26 17:56 | P.PN_ITS ---
Subjective Subjective Date Patient Seen: 05/26/22 Time Patient Seen: 17:57 Interval history: Blood pressures remain stable in the normal range. PM Mg level 5.9, DTR's remain brisk. Migraine earlier today resolved with Imitrex NS. Breast tenderness and erythema developing in right breast. Patient has hx of mastitis with previous delivery and feels she has early mastitis. Exam Vital Signs (past 8 hours): - 05/26/22 10:00 05/26/22 10:20 05/26/22 10:34 Temperature 98.0 F Pulse Rate 77 77 Respiratory Rate 19 Blood Pressure 120/68 120/68 Pulse Oximetry 97 Oxygen Delivery Method Room Air 05/26/22 12:00 05/26/22 14:00 05/26/22 15:00 Temperature 97.8 F 98.3 F 98.3 F Pulse Rate 79 93 H 89 Respiratory Rate 17 17 18 Blood Pressure 115/66 132/78 134/81 Pulse Oximetry 96 97 99 Oxygen Delivery Method 05/26/22 15:00 Temperature Pulse Rate Respiratory Rate Blood Pressure Pulse Oximetry 99 Oxygen Delivery Method Room Air Oxygen Delivery Method Room Air Const General: cooperative and lethargic Nutritional Appearance: average body habitus Orientation: alert and oriented x3 HENMT Head: normal to inspection Eyes General: appearance normal, both eyes and all related structures Neck Neck: normal visual inspection Chest Breast inspection: Other (Erythema, right) Breast Palpation: other Other: Tender right breast at site of erythema c/w mastitis Objective Labs Result Diagrams: 05/26/22 17:15 05/26/22 17:15 Labs: Laboratory Results - last 24 hr 05/25/22 05/25/22 05/25/22 22:00 22:00 22:00 WBC 6.6 RBC 3.56 L Hgb 11.5 L Hct 33.5 L MCV 94.0 MCH 32.4 MCHC 34.5 RDW 12.5 Plt Count 328 Neut % (Auto) 62.2 Lymph % (Auto) 26.6 [place] % (Auto) 7.3 Eos % (Auto) 3.5 Baso % (Auto) 0.4 Neut # (Auto) 4100 Lymph # (Auto) 1800 [place] # (Auto) 500 Eos # (Auto) 200 Baso # (Auto) 0 PT 11.3 INR 1.0 APTT 34 Sodium 138 Potassium 4.0 Chloride 107 Carbon Dioxide 24 BUN 14 Creatinine 0.83 Estimated GFR > 60 BUN/Creatinine Ratio 16.9 Glucose 84 Calcium 8.5 Magnesium Total Bilirubin 0.3 AST 41 H ALT 34 Alkaline Phosphatase 93 Total Protein 6.7 Albumin 3.6 Globulin 3.1 Albumin/Globulin Ratio 1.2 Lipase 63 Urine RBC Urine WBC Urine Bacteria Ur Culture Indicated? Micro UA Comment U Random Total Protein Urine Creatinine Protein/Creatinin Ratio SARS-CoV-2 (PCR) 05/25/22 05/25/22 05/26/22 23:25 23:25 00:33 WBC RBC Hgb Hct MCV MCH MCHC RDW Plt Count Neut % (Auto) Lymph % (Auto) [place] % (Auto) Eos % (Auto) Baso % (Auto) Neut # (Auto) Lymph # (Auto) [place] # (Auto) Eos # (Auto) Baso # (Auto) PT INR APTT Sodium Potassium Chloride Carbon Dioxide BUN Creatinine Estimated GFR BUN/Creatinine Ratio Glucose Calcium Magnesium Total Bilirubin AST ALT Alkaline Phosphatase Total Protein Albumin Globulin Albumin/Globulin Ratio Lipase Urine RBC 0-1/hpf Urine WBC None seen Urine Bacteria None seen Ur Culture Indicated? Culture not indicate Micro UA Comment * U Random Total Protein 10 Urine Creatinine 52.4 Protein/Creatinin Ratio 0.19 SARS-CoV-2 (PCR) Negative 05/26/22 05/26/22 05/26/22 09:55 17:15 17:15 WBC 11.7 H D RBC 3.82 L Hgb 12.5 Hct 35.9 L MCV 94.1 MCH 32.7 MCHC 34.8 RDW 12.9 Plt Count 368 Neut % (Auto) 86.6 H D Lymph % (Auto) 7.4 L [place] % (Auto) 4.6 Eos % (Auto) 1.2 L Baso % (Auto) 0.2 Neut # (Auto) 06834 H Lymph # (Auto) 900 L [place] # (Auto) 500 Eos # (Auto) 100 Baso # (Auto) 0 PT INR APTT Sodium Potassium Chloride Carbon Dioxide BUN Creatinine Estimated GFR BUN/Creatinine Ratio Glucose Calcium Magnesium 4.7 H 5.9 H* Total Bilirubin AST ALT Alkaline Phosphatase Total Protein Albumin Globulin Albumin/Globulin Ratio Lipase Urine RBC Urine WBC Urine Bacteria Ur Culture Indicated? Micro UA Comment U Random Total Protein Urine Creatinine Protein/Creatinin Ratio SARS-CoV-2 (PCR) 05/26/22 17:15 WBC RBC Hgb Hct MCV MCH MCHC RDW Plt Count Neut % (Auto) Lymph % (Auto) [place] % (Auto) Eos % (Auto) Baso % (Auto) Neut # (Auto) Lymph # (Auto) [place] # (Auto) Eos # (Auto) Baso # (Auto) PT INR APTT Sodium 137 Potassium 4.0 Chloride 103 Carbon Dioxide 23 BUN 9 Creatinine 0.73 Estimated GFR > 60 BUN/Creatinine Ratio 12.3 Glucose 133 H Calcium 7.3 L Magnesium Total Bilirubin 0.3 AST 33 ALT 31 Alkaline Phosphatase 93 Total Protein 6.7 Albumin 3.2 L Globulin 3.5 Albumin/Globulin Ratio 0.9 L Lipase Urine RBC Urine WBC Urine Bacteria Ur Culture Indicated? Micro UA Comment U Random Total Protein Urine Creatinine Protein/Creatinin Ratio SARS-CoV-2 (PCR) PFSH Medical History Allergic rhinitis Anxiety Asthma Bilateral tinnitus Chromhidrosis Folliculitis Migraine Palpitations Plantar wart Preeclampsia Psoriasis Recurrent cold sores Surgical History H/O wisdom tooth extraction H/O: History of removal of skin mole History of tonsillectomy Family History Mother Arthritis Endometriosis Hyperlipidemia Hypertension Age related osteoporosis Grandfather Hyperlipidemia Hypertension Stroke Grandmother Hyperlipidemia Hypertension Stroke Macular degeneration Father Melanoma Grandfather Leukemia Grandfather Laryngeal cancer Social History marital status: number of children: 1 household members: spouse and children lives independently: Yes housing: house pets and animals: Yes (1 dog) education level: college occupational status: employed current occupational exposures/hazards: No special yokasta needs: No travel history: over 6 months ago seatbelt use: always helmet use: Yes water heater temp set < 120 deg: Yes working smoke detector in home: Yes fire extinguisher in home: Yes carbon monox detector in home: Yes firearms in home: Yes firearms unloaded and locked: Yes do you feel safe at home: Yes Smoking Status: Never smoker second hand exposure: No alcohol intake: former substance use type: marijuana during the past year weight has: remained stable well-balanced diet: daily or most days daily servings fruits/ve-4 caffeine: Yes Type(s) of exercise: regular exercise, weight lifting, yoga and additional Assessment & Plan Assessment and plan (1) Preeclampsia in period: Status: Acute (2) Mastitis during puerperium: Status: Acute Plan Continue MgSO4 x 24 hrs. and labetalol 100 mg PO BID; MgSO4 will be discon tinued @ 0200 05/27/2022 at 24 hr. Initiate erythromycin 500 mg PO BID Ibuprofen 600 mg PO q 6 hrs. PRN Ambien 5 mg PO HS PRN sleep Probable discharge tomorrow if BP remains stable and labs improved/unchanged Time Spent With Patient Time with patient: less than 30 minutes Quality VTE Deep Vein Thrombosis/Pulmonary Embolism Present on Admission: Yes
--- NOTE | 2022-05-26 17:57 | PC.NURSE ---
1720 Jacques from laboratory called, results on Magnesium level 5.9, critical value; report to who is in the department. no new orders. Also notified him patient recommendation for ibuprofen for mastitis.
--- NOTE | 2022-05-26 19:45 | PC.NURSE ---
Addendum entered by Mercy Chinchilla R.N. 05/27/22 04:11: patient is alert and oriented x4, rates her headache 2/10, incision pain is 4/10. patient denies RUQ pain, vision changes, BLE edema is still 2+ pitting, and bilateral DTRs are 2+, clonus absent. Magnesium sulfate infusion was shut off at 0200 as ordered by provider, patient states she feels much better without the magnesium running. SCD pumps are applied bilaterally and machine is on. Call light in reach, partner is in room. Will continue to monitor. Original Note: patient is alert and oriented x4, observed to walk safely and effectively with SBA to BR. IVF running as ordered. Patient states she feels very tired as she did not sleep very well last night. Reviewed plan of care with patient, RN to turn off magnesium sulfate IV at 0200 05/27/22. Patient states she was not given appropriate dinner tray, has called partner to get her food. Discussed plan of care regarding mastitis -- to continue pain medications as ordered and provide comforting measures as needed. Assessment is as documented, vitals to be completed as ordered. Patient states her headache continues but feels better than before, edema noted in bilateral LE, pitting 2+. Call light in reach, will continue to monitor.
[2022-05-26] MEDS: ZOLPIDEM 5 MG TABLET PO (21:08)
[2022-05-26] MEDS: ERYTHROMYCIN BASE 250 MG TABLET 500 MG PO (21:54)
[2022-05-27] VITALS: BP 127/75; PULSE 95; RESP 17; TEMP 36.9; O2SAT 97
[2022-05-27 02:00] VITALS: BP 118/76; PULSE 88; RESP 16; TEMP 36.8; O2SAT 97
[2022-05-27] MEDS: ACETAMINOPHEN 325 MG TABLET 650 MG PO ×2 (02:42→09:20)
[2022-05-27] MEDS: IBUPROFEN 600 MG TABLET PO ×2 (02:42→09:20)
[2022-05-27 04:00] VITALS: BP 117/70; PULSE 75; RESP 16; TEMP 37.1; O2SAT 99
[2022-05-27 06:00] VITALS: BP 125/69; PULSE 72; RESP 18; TEMP 36.4; O2SAT 99
--- NOTE | 2022-05-27 08:00 | DI.RAD.S_ITS ---
PROCEDURE: XR CHEST 1V INDICATIONS: re-evaluate pulmonary edema TECHNIQUE: One view of the chest was acquired. COMPARISON: [facility], CR, XR CHEST 1V, 05/25/2022, 22:00. FINDINGS: Surgical changes and devices: None. Lungs and pleura: Lungs appear clear. Improved pulmonary edema and pleural effusions. No significant pleural effusions or pneumothorax. Mediastinum: Mediastinal contours appear unchanged. Heart size is normal. Bones and chest wall: No suspicious bony lesions. Overlying soft tissues appear unremarkable. IMPRESSION: Improved pulmonary edema and pleural effusions. Dictated by: Nemesio Sebastian M.D. on 05/27/2022 at 8:43 Approved by: Nemesio Sebastian M.D. on 05/27/2022 at 8:44
--- NOTE | 2022-05-27 08:31 | P.DS_ITS ---
History of Present Illness History of Present Illness Date Patient Seen: 05/27/22 Time Patient Seen: 08:40 Chief complaint: High BP Narrative: Sugar Porras is a 32 year old female, 1 week post C section readmitted for preeclampsia early on the morning of 05/26/2022 after presenting to the [facility] ED on the evening of 05/25/2022?with elevated BP's, symptomatic with a headache, increased pedal edema, hyperreflexic, and mildly elevated AST.? Chest x-ray shows bilateral pulmonary edema with small pleural effusions but no eveidence of cardiomegally.. She had a repeat section 1 week ago, delivered at 38 weeks due to gestational hypertension. She was on labetalol for the last few weeks of . ? She has a history of preeclampsia with her prior .? After her recent delivery delivery her blood pressures became normal?and she did not need to continue the labetalol .? On the day prio to her admission, she had onset of a headache lasting all day.? In the evening she checked her blood pressure and?noted an elevated BP of 150/98.? She re-checked her BP and recorded 160/111. ? She also felt some chest pressure?earlier and tried an inhaler.? Denies any shortness of breath. She has a history of migraines in the past but denied scotomata, nausea or upper abdominal pain.? She has some lower abdominal incisional discomfort which has been decreasing.? She has noticed worsening swelling in her leg since leaving the hospital. ?She has a history of preeclampsia with her 1st with onset at 34 weeks. Discharge Providers Provider Date of admission: 05/26/22 00:37 Discharge Date: 05/27/22 Primary care physician: Colby Cervantes MD Consults: 05/26/22 01:23 Consult to Cook Supervisor Routine Comment: for breast pump inpatient Discharge provider: Parminder Tovar MD Summary Hospital Course Discharge Diagnosis: Late onset () preeclampsia Mastitis, right Hospital Course: See HPI above. Following admission, the patient was initiated on oral labetalol 100 mg p.o. b.i.d. and intravenous magnesium sulfate which was continued for 24 hours. In addition the patient underwent greater than 3 L diuresis with Lasix resulting in significant improvement in both her edema, blood pressure, and the pulmonary changes noted on her initial chest x-ray. The mild elevation of her AST noted in the emergency department has resolved and her liver function studies are now normal. Her headache has significantly improved with use of Imitrex, ingestion of caffeine, and ibuprofen. During the course of the hospitalization, she was noted to have erythema and localized tenderness in the right breast and was initiated on oral erythromycin for mastitis which she experienced with her previous . She will be discharged at this time to home in an afebrile normotensive condition after counseling regarding precautionary symptoms, limitations of activity, medications, and plans for follow-up which will be in 1 week for blood pressure check and re-evaluation of her mastitis. Medications at discharge will include all of her preadmission medications as well as labetalol 100 mg p.o. b.i.d., erythromycin 500 mg p.o. b.i.d. times 10 days, Imitrex 50 mg p.o. Q 4 hours as needed headache up to 4 doses per 24 hours, and Lasix 20 mg p.o. q.d. x5 days. Status at Discharge Cognitive/behavioral status at discharge: oriented Functional status at discharge: independent ambulation Overall status at discharge: patient is progressing back to baseline Time Spent with Patient Time spent: Less than 30 minutes Exam Vital Signs (past 8 hours): - 05/27/22 02:00 05/27/22 04:00 05/27/22 06:00 Temperature 98.2 F 98.7 F 97.6 F Pulse Rate 88 75 72 Respiratory Rate 16 16 18 Blood Pressure 118/76 117/70 125/69 Pulse Oximetry 97 99 99 Oxygen Delivery Method Room Air Const General: cooperative and comfortable Nutritional Appearance: average body habitus Orientation: alert and oriented x3 HENMT Head: normal to inspection, atraumatic and abrasion Ears: hearing grossly normal bilaterally Face and sinus: face symmetric Eyes General: appearance normal, both eyes and all related structures Conjunctivae: conjunctivae normal Sclera: sclerae normal EOM: EOM intact bilaterally Neck Neck: normal visual inspection Chest Breast inspection: Other (Redness, right breast) Breast Palpation: other (Tenderness, right breast) Resp Effort & Inspection: normal respiratory effort and able to speak in complete sentences Auscultation: clear to auscultation bilaterally, diminished lung sounds (Posterior bases, bilateral, right greater than left) and no wheezes Cardio Rate: regular rate Rhythm: regular rhythm Heart Sounds: S1 normal, S2 normal and no murmurs GI Inspection: normal to inspection and incision (Aquacel dressing removed, incision intact, Steri-Strips remain) Palpation: soft, no hepatosplenomegaly and tender (Mild, diffuse postsurgical tenderness) External Female Exam: other (No significant bleeding noted) Extrem General: no calf tenderness Right lower extremity: edema Details: pitting and 1+ Left lower extremity: edema Details: pitting and 1+ Psych Appearance: grossly normal Mental Status: mental status grossly normal Speech and Movement: speech and movement normal Mood: congruent mood Affect: normal affect Attitude: cooperative Thought Process: normal Thought Content: normal Judgment: judgment good Objective Labs Result Diagrams: 05/26/22 17:15 05/26/22 17:15 Labs: Laboratory Results - last 24 hr 05/26/22 05/26/22 05/26/22 09:55 17:15 17:15 WBC 11.7 H D RBC 3.82 L Hgb 12.5 Hct 35.9 L MCV 94.1 MCH 32.7 MCHC 34.8 RDW 12.9 Plt Count 368 Neut % (Auto) 86.6 H D Lymph % (Auto) 7.4 L [place] % (Auto) 4.6 Eos % (Auto) 1.2 L Baso % (Auto) 0.2 Neut # (Auto) 53310 H Lymph # (Auto) 900 L [place] # (Auto) 500 Eos # (Auto) 100 Baso # (Auto) 0 Sodium Potassium Chloride Carbon Dioxide BUN Creatinine Estimated GFR BUN/Creatinine Ratio Glucose Calcium Magnesium 4.7 H 5.9 H* Total Bilirubin AST ALT Alkaline Phosphatase Total Protein Albumin Globulin Albumin/Globulin Ratio 05/26/22 17:15 WBC RBC Hgb Hct MCV MCH MCHC RDW Plt Count Neut % (Auto) Lymph % (Auto) Mesa % (Auto) Eos % (Auto) Baso % (Auto) Neut # (Auto) Lymph # (Auto) Mesa # (Auto) Eos # (Auto) Baso # (Auto) Sodium 137 Potassium 4.0 Chloride 103 Carbon Dioxide 23 BUN 9 Creatinine 0.73 Estimated GFR > 60 BUN/Creatinine Ratio 12.3 Glucose 133 H Calcium 7.3 L Magnesium Total Bilirubin 0.3 AST 33 ALT 31 Alkaline Phosphatase 93 Total Protein 6.7 Albumin 3.2 L Globulin 3.5 Albumin/Globulin Ratio 0.9 L PFSH Medical History Allergic rhinitis Anxiety Asthma Bilateral tinnitus Chromhidrosis Folliculitis Migraine Palpitations Plantar wart Preeclampsia Psoriasis Recurrent cold sores Surgical History H/O wisdom tooth extraction H/O: History of removal of skin mole History of tonsillectomy Family History Mother Arthritis Endometriosis Hyperlipidemia Hypertension Age related osteoporosis Grandfather Hyperlipidemia Hypertension Stroke Grandmother Hyperlipidemia Hypertension Stroke Macular degeneration Father Melanoma Grandfather Leukemia Grandfather Laryngeal cancer Social History marital status: number of children: 1 household members: spouse and children lives independently: Yes housing: house pets and animals: Yes (1 dog) education level: college occupational status: employed current occupational exposures/hazards: No special yokasta needs: No travel history: over 6 months ago seatbelt use: always helmet use: Yes water heater temp set < 120 deg: Yes working smoke detector in home: Yes fire extinguisher in home: Yes carbon monox detector in home: Yes firearms in home: Yes firearms unloaded and locked: Yes do you feel safe at home: Yes Smoking Status: Never smoker second hand exposure: No alcohol intake: former substance use type: marijuana during the past year weight has: remained stable well-balanced diet: daily or most days daily servings fruits/ve-4 caffeine: Yes Type(s) of exercise: regular exercise, weight lifting, yoga and additional Discharge Plan Discharge Plan Patient Disposition: Home Provider Discharge Comment: Please review the written instructions you received when you were discharged from the hospital. Your follow-up in the office will be in 1 week to check your blood pressure and to make sure that your mastitis is resolving. If in the meanwhile however you have any issues, or concerns, please contact me either through the office phone at [phone] or via the patient p ortal. Discharge orders & Medications Prescriptions: New erythromycin 250 mg Tablet 500 mg PO BID 10 Days Qty: 40 0RF sumatriptan succinate [Imitrex] 50 mg tablet 50 mg PO Q2-4H PRN (Reason: migraine headache) Qty: 20 1RF Rx Instructions: do not exceed 4 doses per 24 hrs furosemide [Lasix] 20 mg tablet 10 mg PO QAM Qty: 5 0RF Continued alcaftadine 0.25 % drops 1 drp EYE-LEFT DAILY Qty: 3 0RF prenat.vits,rogelio,[id number] Tablet 1 tab PO DAILY valacyclovir 500 mg tablet 500 mg PO BID Qty: 30 1RF Rx Instructions: Take 1 tab twice daily for 5 days with each cold sore outbreak docusate sodium 100 mg Capsule 200 mg PO BID 15 Days Qty: 60 2RF ibuprofen 600 mg Tablet 600 mg PO Q6H PRN (Reason: Fever/Mild Pain (1-3)) Qty: 60 2RF hydromorphone 4 mg Tablet 4 mg PO Q3H PRN (Reason: Pain, Severe (7-10)) 5 Days Qty: 30 0RF ondansetron 8 mg tablet,disintegrating 8 mg PO Q8H PRN (Reason: nausea and vomiting) Qty: 10 0RF No Action labetalol 100 mg tablet 100 mg PO BID Qty: 180 0RF Follow up/Referrals: Colby Cervantes MD [Primary Care Provider] - Parminder Tovar MD [Physician] - Discharge Health Status Multidrug resistant organism: No MDRO Diet/Activity/Treatments Diet: Diet as Tolerated Activity: As tolerated Skin/Wound/Dressing Care Report to your healthcare provider any signs of infection, such as:: chills, f ever, increased pain, unusual drainage and unusual redness Visit Report/Discharge Packet Instructions: Pre-eclampsia, DI for Mastitis, DI for Prescription Opioid Use Discharge Data Primary Care Provider: Colby Cervantes Attending Provider: Radha Sharp VTE Deep Vein Thrombosis/Pulmonary Embolism Present on Admission: Yes
[2022-05-27 09:20] VITALS: BP 127/82; PULSE 72
[2022-05-27] MEDS: LABETALOL 100 MG TABLET PO (09:20)
[2022-05-27] MEDS: ERYTHROMYCIN BASE 250 MG TABLET 500 MG PO (09:20)
[2022-05-27] MEDS: PRENATAL VIT,CALC/IRON/FOLIC 1 TABLET 1 TAB PO (09:20)
[2022-05-27 10:00] VITALS: BP 127/82; PULSE 72; RESP 18; TEMP 36.4; O2SAT 100
--- NOTE | 2022-05-27 11:37 | PC.NURSE ---
pt DCed by Freddy Tovar-pt stabel with some pain in L breast-addressed by provider-X Ray reviewed-see OB report-BPs WNL on labetolol-All RX reviewed with pt-Pt to cook pickled meat meds before going home-This RN reviewed all pain medications-Home BPs report any and to call and report any concerning symptoms to OB. Baby BF well Pt advised to use warm compress on mastitis and cont to feed baby girl.pt has no further questions or concerns.
== END 2022-05-27 10:50 | disposition home or self-care (01) ==
LOC: ED 05-26 00:24 → LABOR 05-26 08:31 → AC 05-27 07:59 → LABOR 05-27 07:59
PROVIDERS: Admitting Provider Obstetrics & Gynecology; Emergency Provider Emergency Medicine; PCP Pediatrics; Referring Provider Emergency Medicine; Visit Provider Obstetrics & Gynecology
DX: O14.95 Unspecified pre-eclampsia, complicating the puerperium (principal); O91.22 Nonpurulent mastitis associated with the puerperium; J81.1 Chronic pulmonary edema; O13.5 Gestational [pregnancy-induced] hypertension without significant proteinuria, complicating the puerperium; Z20.822 Contact with and (suspected) exposure to COVID-19
CPT/HCPCS: 36415; 71045; 80053; 81003; 81015; 82570; 83690; 83735; 84156; 85025; 85610; 85730; 87077; 87086; 87147; 87635; 93005; 99283; C9803; G0378; A9270; J1885; J1940; J2765; J3475

== ENCOUNTER 2023-04-10 15:00 | Outpatient (RCR) | payer OTHER, SELFPAY ==
[2022-05-26 03:15] VITALS: BMI 30.4
--- NOTE | 2022-10-21 17:40 | PT.OPPOC ---
Physical, Occupational & Speech Therapy At [facility] Current Diagnoses Muscle weakness (generalized) (10/21/22) Other female genital prolapse (10/21/22) Abnormal posture (10/21/22) Visit Care Team Role Provider Type Lazara Shahid DO Primary Care Provider Physician Specialty: Medical Address: [address] [place] [address], [address], [place], [address] Email: [email or web address] Parminder Tovar MD Attending Provider Physician Referring Provider Specialty: FIRE LOSS PREVENTION ENGINEER Address: [address] [place] [address], [address], [place], [address] Email: [email or web address] Plan Of Care PT-OP-T Assessment and Plan Start: 10/19/22 12:14 Freq: Status: Active Protocol: Document 10/21/22 14:40 LRN (Rec: 10/22/22 13:34 LRN [id number]) Physical Therapy Assessment Rehab Potential Rehabilitation Potential Excellent Evaluation Complexity Number of Personal Factors/Comorbidities 1-2 Number of Body Systems Impaired 4 or More Clinical Presentation at Evaluation Evolving Impairments Impairments Integument,Posture,ROM, Sensation,Soft Tissue Mobility ,Strength,Tone,Transfers Other Impairments Dysfunctional urinary voiding Goals Four Impairment Pt not able to urinary void completely on first sitting. Impairment After initial voiding in sitting, pt has to stand and adjust hips before being able to completely void. Short Term Goal (STG) Improve abdominal soft tissue mobility and relaxation of PF for urinary voiding on first sit 50% of time during the week. STG Duration 12/06/22 Residential Goal (LTG) Pt will be able to urinary void without having to stand and adjust hips to complete voiding. LTG Duration 01/22/23 Three Impairment Diastasis Rectus (DR) above umbilicus Impairment DR above umbilicus: 1-3 is 1 /2 finger width (~0.75 cm), 4 above is 1.5 finger widths (~ 2.1 cm). Short Term Goal (STG) Pt will be educated in self penitentiary program for closure of DR. STG Duration 11/04/22 Corporate Logistics Manager Goal (LTG) Pt will be demonstrate reduced DR on palpation. LTG Duration 01/22/23 Two Impairment Core weakness below umbilicus Impairment Pt not able to maintain core stability with doming noted with supine head lifts and leg raises. Short Term Goal (STG) Pt will demonstrate lower abdominal core tightening ability of drawing in without use of diaphragm to assist without doming on head lifts and leg lifts. STG Duration 11/25/22 Corporate Logistics Manager Goal (LTG) Pt will improve sensation and neuromuscular awareness of her lower abdominal region, and improve core strength with minimal doming with use of upper extremities with functional activities or UE strengthening. LTG Duration 01/22/23 One Impairment Pt lacks an independent self care HEP. Short Term Goal (STG) Education in proper methods for transfer with coordination of breathing, proper vulvar/ genital care, and PF stretching ex's. STG Duration 10/28/22 Corporate Logistics Manager Goal (LTG) Pt will be independent in a self care HEP for PF relaxation/stretching/ strengthening, core stabilization ex's. LTG Duration 01/22/23 Assessment Summary Assessment Pt is a 32 yo female who is ~4 .5 months (22 wkw) post- s/p . Pt appears to have difficulty voiding due to PF tightness generally but weakness of anterior PF muscles. The pt also demonstrates poor awareness of her lower core muscles with decreased core stability partially due to her diastasis rectus and probably poor core pressure management, leading to dysfunctional urinary voiding. The pt will benefit from skilled physical therapy of pt education & HEP, manual therapy, therapeutic exercise, transfer training for coordination of breathing for pressure management, modalities (K-taping), and neuro-reeducation with biofeedback, in order to achieve the above stated goals . Physical Therapy Plan Frequency and Duration Frequency of Treatment 1x/Week Plan of Care Start Date 10/21/22 Plan of Care End Date 01/22/23 Therapeutic Interventions Therapeutic Interventions Home Exercise Program,Joint Mobilizations,Manual Therapy, Neuromuscular Re-education, Patient/Caregiver Education, Self-Care/Home Management,Soft Tissue Mobilization,Taping, Therapeutic Activities, Therapeutic Exercises Modalities Biofeedback,Cold Pack/Ice Massage,Hot Packs Other Therapeutic Interventions K-tape. Other Referrals/Consults Referrals/Consults Recommended Assessment for PF tissue health regarding redness and dryness of tissues with treatment to improve tissue health (?estrogen cream). Next Visit Focus/Plan Next Note Type Treatment Note Next Visit Plan Assess hip mobility & hip ext strength, and issue HEP as needed. Review bladder diary and discuss as needed fluid needs, stool types, foods. Biofeedback with vaginal/ rectal/surface sensor(s). Education: Posture, Vulvar/ genital care, proper deep breathing, proper breathing with transfer, and proper body mechanics for best abdominal pressure system. Manual therapy: K-taping for DR, improve abdominal soft tissue (bladder) mobility, STM of abdomen (and urachus), bladder. Wand for self stretch of PF is needed. Ex's: Core strengthening, abdominal/hip mobility, TA strengthening, teach proper isolated Kegels for pelvic stabilization. HEP possible needs: trunk rotation; hip stretches: ER/ Adductors/IR , Happy Baby Pose . Plan of Care Dates Plan of Care Start Date 10/21/22 Plan of Care End Date 01/22/23 Electronically Signed by: Salome Reed, PT 10/22/22 2943 If you are in agreement with this Plan of Care, please return a signed and dated copy. I have reviewed this Plan of Care and certify that the skilled therapy services above are required to meet the patient?s needs. Physician Signature Date Printed Name and Credentials Clinical Instructor Signature Printed Name and Credentials
--- NOTE | 2022-10-21 17:40 | PT.OIE ---
Current Diagnoses Muscle weakness (generalized) (10/21/22) Other female genital prolapse (10/21/22) Abnormal posture (10/21/22) Past Medical History (Last Reviewed 05/26/22 @ 01:00 by Sameera White DO) Allergic rhinitis Anxiety Asthma Bilateral tinnitus Chromhidrosis Folliculitis Migraine Palpitations Plantar wart Preeclampsia Psoriasis Recurrent cold sores Past Surgical History (Last Reviewed 05/26/22 @ 01:00 by Sameera White DO) H/O wisdom tooth extraction H/O: History of removal of skin mole History of tonsillectomy Visit Care Team Role Provider Type Lazara Shahid DO Primary Care Provider Physician Specialty: Medical Address: [address] [place] [address], [address], [address] Email: [email or web address] Parminder Tovar MD Attending Provider Physician Referring Provider Specialty: METALLURGICAL ENGINEERING TECHNICIAN Address: [address] [place] [address], [address], [address] Email: [email or web address] Physical Therapy Initial Evaluation PT-OP-A Visit Information Start: 10/19/22 12:14 Freq: Status: Active Protocol: Document 10/21/22 14:40 LRN (Rec: 10/22/22 13:34 LRN [id number]) Out-Patient Physical Therapy Visit Information Visit Information Visit Type Initial Evaluation Visit Start Time 14:42 Visit Stop Time 15:21 Total Visit Minutes 41 Visit Number 1 Evaluation Information Evaluation Date 10/21/22 Precautions Precautions Per intake form: x 2, Depression not controlled by meds PT-OP-B Current Condition Start: 10/19/22 12:14 Freq: Status: Active Protocol: Document 10/21/22 14:40 LRN (Rec: 10/22/22 13:34 LRN [id number]) Current Condition History of Current Condition Onset Date 05/19/22 Current Complaints Not able to complete urination in 1 sitting, and concerns of History of Current Condition Pt is a 32 yo female , C- section x 2. Pt had preclampsia with 2nd and preclampsia with her first . The pt c/o numbness in the area of the abdomen from umbilicus distally to pubic bone and transversely the distance between ASIS's. The pt also c /o not being able to void urine completely on sitting, but must stand to wiggle her hips before sitting a second time to complete her voiding. The pt is also concerned if her diastasis rectus (DR) is closing since she has been doing Utube ex's designed to close her DR that she reports worked following her first . Pt denies urinary leakage. Prior Treatments and Tests Exercise workouts on Utube designed for post- exercise and DR closure. Treatment Goals Patient/Caregiver Goals Pt goal is to be able to urinary void without having to stand and adjust hips before completing void, and to have her DR assessed and for closure. 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 Requires travel 1x/month. Current Functional Impairments (Reported) Functional Limitations- ADL's Lacks ability to complete urinary voiding in one sitting . Concerns regarding DR separation. Personal Factors Other Personal Factors That May Effect 2 daughters - x 2. Therapy/Recovery Depression not controlled by meds. Spouse with intermittent deployment. Long working hours/week. PT-OP-C Subjective Start: 10/19/22 12:14 Freq: Status: Active Protocol: Document 10/21/22 14:40 LRN (Rec: 10/22/22 13:34 LRN [id number]) Patient Questionnaires Pelvic Pain and Urgency/Frequency Patient Symptom Scale Pelvic Pain Score 7 PT-OP-I Pelvic Floor Start: 10/19/22 12:14 Freq: Status: Active Protocol: Document 10/21/22 14:40 LRN (Rec: 10/22/22 13:34 LRN [id number]) Pelvic Floor Assessment Urine Pelvic Floor Surgery No Other Urinary Symptoms Not able to void completely in one sitting. Requires standing to wiggle hips before completely emptying. Bowel Bowel Surgery No Other Bowel Symptoms Occasional constipation Pelvic Clock Pelvic Clock 3-6 Tenderness Pelvic Clock 6-9 Tenderness Pelvic Clock Other Tissue redness at vaginal entry. Prolapse Cystocele Grade 2 Perineal Descent Resting Absent Bearing Present Contraction Ability Manual Muscle Testing Left 2 Manual Muscle Testing Right 2 Manual Muscle Testing Anterior 1 Manual Muscle Testing Posterior 3 PT-OP-J Posture/Palpation/Skin Start: 02/08/23 12:14 Freq: Status: Active Protocol: Document 10/21/22 14:40 LRN (Rec: 10/22/22 13:34 LRN [id number]) Posture Evaluation Position Standing Head/C-Spine Posture Forward Head L-Spine Posture Increased Lordosis Pelvis Posture Anteriorly Tilted Comments Posture Comments Upper thoracic spine flattened , protruding abdomen appropriate for post-. Palpation Assessment Location Abdomen Palpation Location Abdomen Palpation Details DR above umbilicus: 1-3 is 1 /2 finger width (~0.75 cm), 4 above is 1.5 finger widths (~ 2.[address] DR below umbilicus: 1 is 1/2 finger width (~o.7t cm). [ End ] PT-OP-K Range of Motion Start: 10/19/22 12:14 Freq: Status: Active Protocol: Document 10/21/22 14:40 LRN (Rec: 10/22/22 13:34 LRN [id number]) Lumbar Spine Range of Motion Lumbar Spine Active Percentage Testing Position Standing Flexion 100 Extension 50 Rotation Left 50 Rotation Right 50 PT-OP-M Strength Start: 10/19/22 12:14 Freq: Status: Active Protocol: Document 10/21/22 14:40 LRN (Rec: 10/22/22 13:34 LRN [id number]) Trunk Strength Trunk Manual Muscle Testing Core Stabilization Pt lacked core lateral and rotational stability as noted with MMT of hip AB/AD, less with hip flex. Hip Strength Hip Manual Muscle Testing Right Flexion (L2) 5 Normal Abduction 5 Normal Adduction 5 Normal External Rotation 5 Normal Internal Rotation 5 Normal Left Flexion (L2) 5 Normal Abduction 5 Normal Adduction 5 Normal External Rotation 4 Good Internal Rotation 5 Normal PT-OP-Q Treatments Start: 10/19/22 12:14 Freq: Status: Active Protocol: Document 10/21/22 14:40 LRN (Rec: 10/22/22 13:34 LRN [id number]) Self-Care/Home Management Treatment Education Other Education Discussed results of evaluation, goals, and plan of care (POC). Pt agreeable to goals and POC. Activities Self-Care/Home Management Activities Pt educated and I/S in use of Bladder Diary and I/S in tracking for 1 week. Discussed use of 2 different diaries for tracking of bladder. Briefly reviewed one aspect of her current home exercise. PT-OP-T Assessment and Plan Start: 10/19/22 12:14 Freq: Status: Active Protocol: Document 10/21/22 14:40 LRN (Rec: 10/22/22 13:34 LRN [id number]) Physical Therapy Assessment Rehab Potential Rehabilitation Potential Excellent Evaluation Complexity Number of Personal Factors/Comorbidities 1-2 Number of Body Systems Impaired 4 or More Clinical Presentation at Evaluation Evolving Impairments Impairments Integument,Posture,ROM, Sensation,Soft Tissue Mobility ,Strength,Tone,Transfers Other Impairments Dysfunctional urinary voiding Goals Four Impairment Pt not able to urinary void completely on first sitting. Impairment After initial voiding in sitting, pt has to stand and adjust hips before being able to completely void. Short Term Goal (STG) Improve abdominal soft tissue mobility and relaxation of PF for urinary voiding on first sit 50% of time during the week. STG Duration 12/06/22 Magnetic Doctor Goal (LTG) Pt will be able to urinary void without having to stand and adjust hips to complete voiding. LTG Duration 01/22/23 Three Impairment Diastasis Rectus (DR) above umbilicus Impairment DR above umbilicus: 1-3 is 1 /2 finger width (~0.75 cm), 4 above is 1.5 finger widths (~ 2.1 cm). Short Term Goal (STG) Pt will be educated in self intermediate program for closure of DR. STG Duration 11/04/22 Halfway Goal (LTG) Pt will be demonstrate reduced DR on palpation. LTG Duration 01/22/23 Two Impairment Core weakness below umbilicus Impairment Pt not able to maintain core stability with doming noted with supine head lifts and leg raises. Short Term Goal (STG) Pt will demonstrate lower abdominal core tightening ability of drawing in without use of diaphragm to assist without doming on head lifts and leg lifts. STG Duration 11/25/22 Magnetic Doctor Goal (LTG) Pt will improve sensation and neuromuscular awareness of her lower abdominal region, and improve core strength with minimal doming with use of upper extremities with functional activities or UE strengthening. LTG Duration 01/22/23 One Impairment Pt lacks an independent self care HEP. Short Term Goal (STG) Education in proper methods for transfer with coordination of breathing, proper vulvar/ genital care, and PF stretching ex's. STG Duration 02/17/23 Halfway Goal (LTG) Pt will be independent in a self care HEP for PF relaxation/stretching/ strengthening, core stabilization ex's. LTG Duration 01/22/23 Assessment Summary Assessment Pt is a 32 yo female who is ~4 .5 months (22 wkw) post- s/p . Pt appears to have difficulty voiding due to PF tightness generally but weakness of anterior PF muscles. The pt also demonstrates poor awareness of her lower core muscles with decreased core stability partially due to her diastasis rectus and probably poor core pressure management, leading to dysfunctional urinary voiding. The pt will benefit from skilled physical therapy of pt education & HEP, manual therapy, therapeutic exercise, transfer training for coordination of breathing for pressure management, modalities (K-taping), and neuro-reeducation with biofeedback, in order to achieve the above stated goals . Physical Therapy Plan Frequency and Duration Frequency of Treatment 1x/Week Plan of Care Start Date 10/21/22 Plan of Care End Date 01/22/23 Therapeutic Interventions Therapeutic Interventions Home Exercise Program,Joint Mobilizations,Manual Therapy, Neuromuscular Re-education, Patient/Caregiver Education, Self-Care/Home Management,Soft Tissue Mobilization,Taping, Therapeutic Activities, Therapeutic Exercises Modalities Biofeedback,Cold Pack/Ice Massage,Hot Packs Other Therapeutic Interventions K-tape. Other Referrals/Consults Referrals/Consults Recommended Assessment for PF tissue health regarding redness and dryness of tissues with treatment to improve tissue health (?estrogen cream). Next Visit Focus/Plan Next Note Type Treatment Note Next Visit Plan Assess hip mobility & hip ext strength, and issue HEP as needed. Review bladder diary and discuss as needed fluid needs, stool types, foods. Biofeedback with vaginal/ rectal/surface sensor(s). Education: Posture, Vulvar/ genital care, proper deep breathing, proper breathing with transfer, and proper body mechanics for best abdominal pressure system. Manual therapy: K-taping for DR, improve abdominal soft tissue (bladder) mobility, STM of abdomen (and urachus), bladder. Wand for self stretch of PF is needed. Ex's: Core strengthening, abdominal/hip mobility, TA strengthening, teach proper isolated Kegels for pelvic stabilization. HEP possible needs: trunk rotation; hip stretches: ER/ Adductors/IR , Happy Baby Pose .
--- NOTE | 2022-10-28 15:51 | PT.OTN ---
Current Diagnoses Muscle weakness (generalized) (10/28/22) Other female genital prolapse (10/28/22) Abnormal posture (10/28/22) Physical Therapy Treatment Note PT-OP-A Visit Information Start: 10/19/22 12:14 Freq: Status: Active Protocol: Document 10/28/22 14:35 LRN (Rec: 10/28/22 15:50 LRN [id number]) Out-Patient Physical Therapy Visit Information Visit Information Visit Type Treatment Note Visit Start Time 14:36 Visit Stop Time 15:26 Total Visit Minutes 50 Visit Number 2 Evaluation Information Evaluation Date 10/21/22 Precautions Precautions Per intake form: x 2, Depression not controlled by meds PT-OP-B Current Condition Start: 10/19/22 12:14 Freq: Status: Active Protocol: Document 10/21/22 14:40 LRN (Rec: 10/22/22 13:34 LRN [id number]) Current Condition History of Current Condition Onset Date 05/19/22 Current Complaints Not able to complete urination in 1 sitting, and concerns of DR. History of Current Condition Pt is a 32 yo female , C- section x 2. Pt had preclampsia with 2nd and preclampsia with her first . The pt c/o numbness in the area of the abdomen from umbilicus distally to pubic bone and transversely the distance between ASIS's. The pt also c /o not being able to void urine completely on sitting, but must stand to wiggle her hips before sitting a second time to complete her voiding. The pt is also concerned if her diastasis rectus (DR) is closing since she has been doing Utube ex's designed to close her DR that she reports worked following her first . Pt denies urinary leakage. Prior Treatments and Tests Exercise workouts on [email or web address] designed for post- exercise and DR closure. Treatment Goals Patient/Caregiver Goals Pt goal is to be able to urinary void without having to stand and adjust hips before completing void, and to have her DR assessed and for closure. 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 Requires travel 1x/month. Current Functional Impairments (Reported) Functional Limitations- ADL's Lacks ability to complete urinary voiding in one sitting . Concerns regarding DR separation. Personal Factors Other Personal Factors That May Effect 2 daughters - x 2. Therapy/Recovery Depression not controlled by meds. Spouse with intermittent deployment. Long working hours/week. 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 PT-OP-I Pelvic Floor Start: 10/19/22 12:14 Freq: Status: Active Protocol: Document 10/21/22 14:40 LRN (Rec: 10/22/22 13:34 LRN [id number]) Pelvic Floor Assessment Urine Pelvic Floor Surgery No Other Urinary Symptoms Not able to void completely in one sitting. Requires standing to wiggle hips before completely emptying. Bowel Bowel Surgery No Other Bowel Symptoms Occasional constipation Pelvic Clock Pelvic Clock 3-6 Tenderness Pelvic Clock 6-9 Tenderness Pelvic Clock Other Tissue redness at vaginal entry. Prolapse Cystocele Grade 2 Perineal Descent Resting Absent Bearing Present Contraction Ability Manual Muscle Testing Left 2 Manual Muscle Testing Right 2 Manual Muscle Testing Anterior 1 Manual Muscle Testing Posterior 3 PT-OP-J Posture/Palpation/Skin Start: 10/19/22 12:14 Freq: Status: Active Protocol: Document 10/21/22 14:40 LRN (Rec: 10/22/22 13:34 LRN [id number]) Posture Evaluation Position Standing Head/C-Spine Posture Forward Head L-Spine Posture Increased Lordosis Pelvis Posture Anteriorly Tilted Comments Posture Comments Upper thoracic spine flattened , protruding abdomen appropriate for post-. Palpation Assessment Location Abdomen Palpation Location Abdomen Palpation Details DR above umbilicus: 1-3 is 1 /2 finger width (~0.75 cm), 4 above is 1.5 finger widths (~ 2.[address] cm[address] DR below umbilicus: 1 is 1/2 finger width (~o.7t cm). [ End ] PT-OP-K Range of Motion Start: 10/19/22 12:14 Freq: Status: Active Protocol: Document 10/28/22 14:35 LRN (Rec: 10/28/22 15:50 LRN [id number]) Hip Goniometric Range of Motion Hip Right Passive Testing Position Supine Straight Leg Raise 80 Abduction 30 Internal Rotation 50 External Rotation 50 Left Passive Testing Position Supine Straight Leg Raise 80 Abduction 30 Internal Rotation 30 External Rotation 50 PT-OP-M Strength Start: 10/19/22 12:14 Freq: Status: Active Protocol: Document 10/21/22 14:40 LRN (Rec: 10/22/22 13:34 LRN [id number]) Trunk Strength Trunk Manual Muscle Testing Core Stabilization Pt lacked core lateral and rotational stability as noted with MMT of hip AB/AD, less with hip flex. Hip Strength Hip Manual Muscle Testing Right Flexion (L2) 5 Normal Abduction 5 Normal Adduction 5 Normal External Rotation 5 Normal Internal Rotation 5 Normal Left Flexion (L2) 5 Normal Abduction 5 Normal Adduction 5 Normal External Rotation 4 Good Internal Rotation 5 Normal PT-OP-Q Treatments Start: 10/19/22 12:14 Freq: Status: Active Protocol: Document 10/28/22 14:35 LRN (Rec: 10/28/22 15:50 LRN [id number]) Therapeutic Exercises Supine Exercises PROM hips Supine Exercise Name PROM hip ER/IR/Hamstring Side bilateral Resisted hip ADD Supine Exercise Name Anterior PF awareness training w/resisted hip ADD in hooklie Side bilateral Reps/Minutes 5' Resisted hip BKFO Supine Exercise Name Posterior PF awareness training w/resisted hip AB in hooklie Side bilateral Reps/Minutes 10' Comments Done in Fig 4 stretch Supine Exercise Name Fig 4 stretch Side bilateral Reps/Minutes 1' each Comments Extra time taken to determine max rochelle stretch position Deep breathing training Supine Exercise Name Deep breathing training Reps/Minutes 22' Comments Phys & v cuing with self phys cuing. Sitting Exercises Hip AD stretch Sitting Exercise Name Hip AD stretch in sidesit on plinth Side left Reps/Minutes 3' Self-Care/Home Management Treatment Education Patient Education Home Exercise Program Activities Self-Care/Home Management Activities Issued & reviewed handout for deep breathing. I/S pt to make noise in throat with exhale for vagus nerve stim. Issued & reviewed HEP: hip stretches for ER (fig 4)/ Adductors/IR Piriformis KTC w/ ankle over knee) PT-OP-T Assessment and Plan Start: 10/19/22 12:14 Freq: Status: Active Protocol: Document 10/28/22 14:35 LRN (Rec: 10/28/22 15:50 LRN [id number]) Physical Therapy Assessment Goals Four Impairment Pt not able to urinary void completely on first sitting. Impairment After initial voiding in sitting, pt has to stand and adjust hips before being able to completely void. Short Term Goal (STG) Improve abdominal soft tissue mobility and relaxation of PF for urinary voiding on first sit 50% of time during the week. STG Duration 12/06/22 Fdc Goal (LTG) Pt will be able to urinary void without having to stand and adjust hips to complete voiding. LTG Duration 01/22/23 Three Impairment Diastasis Rectus (DR) above umbilicus Impairment DR above umbilicus: 1-3 is 1 /2 finger width (~0.75 cm), 4 above is 1.5 finger widths (~ 2.1 cm). Short Term Goal (STG) Pt will be educated in self usp program for closure of DR. STG Duration 11/04/22 Fdc Goal (LTG) Pt will be demonstrate reduced DR on palpation. LTG Duration 01/22/23 Two Impairment Core weakness below umbilicus Impairment Pt not able to maintain core stability with doming noted with supine head lifts and leg raises. Short Term Goal (STG) Pt will demonstrate lower abdominal core tightening ability of drawing in without use of diaphragm to assist without doming on head lifts and leg lifts. STG Duration 11/25/22 Fdc Goal (LTG) Pt will improve sensation and neuromuscular awareness of her lower abdominal region, and improve core strength with minimal doming with use of upper extremities with functional activities or UE strengthening. LTG Duration 01/22/23 One Impairment Pt lacks an independent self care HEP. Short Term Goal (STG) Education in proper methods for transfer with coordination of breathing, proper vulvar/ genital care, and PF stretching ex's. STG Duration 10/28/22 Fdc Goal (LTG) Pt will be independent in a self care HEP for PF relaxation/stretching/ strengthening, core stabilization ex's. 10/28/22: HEP: stretches: piriformis, hip AD's, ER's. LTG Duration 01/22/23 progressed 10/28/22 Assessment Summary Assessment Pt demonstrates very poor awareness of her body at abdominal region and PF. She needed much v cuing and self phys cuing to identify abdominal breathing, but not able to correct for deep breathing, and pt is taking 2 sec breaths. PF awareness is very poor. She needed much education in anatomy, v cuing, phys cuing (resisted hip AB/ AD) and self physical cuing to identify contraction around anus vs urethra. More training may be needed. Pt is not doing her bladder diary and simply states she has never been good at it. Physical Therapy Plan Frequency and Duration Frequency of Treatment 1x/Week Plan of Care Start Date 10/21/22 Plan of Care End Date 01/22/23 Next Visit Focus/Plan Next Note Type Treatment Note Next Visit Plan Assess hip ext strength, and issue HEP as needed. Review bladder diary and discuss as needed fluid needs, stool types, foods. Biofeedback with vaginal or rectal/surface sensor(s). Education: Posture, Vulvar/ genital care, proper deep breathing, proper breathing with transfer, and proper body mechanics for best abdominal pressure system. Manual therapy: K-taping for DR, improve abdominal soft tissue (bladder) mobility, STM of abdomen (and urachus), bladder. Wand for self stretch of PF is needed. Ex's: Core strengthening, abdominal/hip mobility, TA strengthening, teach proper isolated Kegels for pelvic stabilization. HEP possible needs: trunk rotation; hip strengthening stretches: ER/Adductors/IR , Happy Baby Pose.
--- NOTE | 2022-11-18 17:30 | PT.OTN ---
Current Diagnoses Muscle weakness (generalized) (11/18/22) Other female genital prolapse (11/18/22) Abnormal posture (11/18/22) Physical Therapy Treatment Note PT-OP-A Visit Information Start: 10/19/22 12:14 Freq: Status: Active Protocol: Document 11/18/22 09:04 LRN (Rec: 11/18/22 09:48 LRN [id number]) Out-Patient Physical Therapy Visit Information Visit Information Visit Type Treatment Note Visit Start Time 09:04 Visit Stop Time 09:42 Total Visit Minutes 38 Visit Number 3 Evaluation Information Evaluation Date 10/21/22 Precautions Precautions Per intake form: x 2, Depression not controlled by meds PT-OP-B Current Condition Start: 10/19/22 12:14 Freq: Status: Active Protocol: Document 10/21/22 14:40 LRN (Rec: 10/22/22 13:34 LRN [id number]) Current Condition History of Current Condition Onset Date 05/19/22 Current Complaints Not able to complete urination in 1 sitting, and concerns of DR. History of Current Condition Pt is a 32 yo female , C- section x 2. Pt had preclampsia with 2nd and preclampsia with her first . The pt c/o numbness in the area of the abdomen from umbilicus distally to pubic bone and transversely the distance between ASIS's. The pt also c /o not being able to void urine completely on sitting, but must stand to wiggle her hips before sitting a second time to complete her voiding. The pt is also concerned if her diastasis rectus (DR) is closing since she has been doing Utube ex's designed to close her DR that she reports worked following her first . Pt denies urinary leakage. Prior Treatments and Tests Exercise workouts on [employer] designed for post- exercise and DR closure. Treatment Goals Patient/Caregiver Goals Pt goal is to be able to urinary void without having to stand and adjust hips before completing void, and to have her DR assessed and for closure. 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 Current Functional Impairments (Reported) Functional Limitations- ADL's Lacks ability to complete urinary voiding in one sitting . Concerns regarding DR separation. Personal Factors Other Personal Factors That May Effect 2 daughters - x 2. Therapy/Recovery Depression not controlled by meds. Spouse with intermittent deployment. Long working hours/week. PT-OP-C Subjective Start: 10/19/22 12:14 Freq: Status: Active Protocol: Document 11/18/22 09:04 LRN (Rec: 11/18/22 09:48 LRN [id number]) OP-PT Subjective Patient Comments Patient Comments Did not do bladder diary. Developed a new thing. Initially can't complete unless stands and moves to release. Now urinates (~3-4 secs with good stream) and few minutes later has to urinate again (~1 sec w/good stream). PT-OP-I Pelvic Floor Start: 10/19/22 12:14 Freq: Status: Active Protocol: Document 10/21/22 14:40 LRN (Rec: 10/22/22 13:34 LRN [id number]) Pelvic Floor Assessment Urine Pelvic Floor Surgery No Other Urinary Symptoms Not able to void completely in one sitting. Requires standing to wiggle hips before completely emptying. Bowel Bowel Surgery No Other Bowel Symptoms Occasional constipation Pelvic Clock Pelvic Clock 3-6 Tenderness Pelvic Clock 6-9 Tenderness Pelvic Clock Other Tissue redness at vaginal entry. Prolapse Cystocele Grade 2 Perineal Descent Resting Absent Bearing Present Contraction Ability Manual Muscle Testing Left 2 Manual Muscle Testing Right 2 Manual Muscle Testing Anterior 1 Manual Muscle Testing Posterior 3 PT-OP-J Posture/Palpation/Skin Start: 10/19/22 12:14 Freq: Status: Active Protocol: Document 10/21/22 14:40 LRN (Rec: 10/22/22 13:34 LRN [id number]) Posture Evaluation Position Standing Head/C-Spine Posture Forward Head L-Spine Posture Increased Lordosis Pelvis Posture Anteriorly Tilted Comments Posture Comments Upper thoracic spine flattened , protruding abdomen appropriate for post-. Palpation Assessment Location Abdomen Palpation Location Abdomen Palpation Details DR above umbilicus: 1-3 is 1 /2 finger width (~0.75 cm), 4 above is 1.5 finger widths (~ 2.[address] DR below umbilicus: 1 is 1/2 finger width (~o.7t cm). [ End ] PT-OP-K Range of Motion Start: 10/19/22 12:14 Freq: Status: Active Protocol: Document 10/28/22 14:35 LRN (Rec: 10/28/22 15:50 LRN [id number]) Hip Goniometric Range of Motion Hip Right Passive Testing Position Supine Straight Leg Raise 80 Abduction 30 Internal Rotation 50 External Rotation 50 Left Passive Testing Position Supine Straight Leg Raise 80 Abduction 30 Internal Rotation 30 External Rotation 50 PT-OP-M Strength Start: 10/19/22 12:14 Freq: Status: Active Protocol: Document 10/21/22 14:40 LRN (Rec: 10/22/22 13:34 LRN [id number]) Trunk Strength Trunk Manual Muscle Testing Core Stabilization Pt lacked core lateral and rotational stability as noted with MMT of hip AB/AD, less with hip flex. Hip Strength Hip Manual Muscle Testing Right Flexion (L2) 5 Normal Abduction 5 Normal Adduction 5 Normal External Rotation 5 Normal Internal Rotation 5 Normal Left Flexion (L2) 5 Normal Abduction 5 Normal Adduction 5 Normal External Rotation 4 Good Internal Rotation 5 Normal PT-OP-Q Treatments Start: 10/19/22 12:14 Freq: Status: Active Protocol: Document 11/18/22 09:04 LRN (Rec: 11/18/22 09:48 LRN [id number]) Therapeutic Exercises Supine Exercises Asst'd PF/DB/LE roll in/out Supine Exercise Name Asst'd PF/DB/LE roll in/out Comments v cuing throughout ex PF/DB/LE roll in/out Supine Exercise Name PF/DB/LE roll in/out Equipment Used Also w/ball and L2TB Reps/Minutes 13' Comments Pt not able to coordinate. LE roll in/out Supine Exercise Name DB w/LE roll in/out Reps/Minutes 3' Deep breathing training Supine Exercise Name Deep breathing training - slow breath in/out Reps/Minutes 3' Comments Phys & v cuing with self phys cuing. Manual Therapy Treatment Soft Tissue Mobilization 11 & 1 of PF Clock Body Location 11 & 1 of PF clock to normalize position of urethra Mobilization Type Sustained Pressure Intensity/Depth Superficial Body Position Hooklying Comments 10 Self-Care/Home Management Treatment Education Patient Education Home Exercise Program Activities Self-Care/Home Management Activities Issued & reviewed HEP: LE Roll in/out with ball/TBand. Issued Lev 2 TB. PT-OP-T Assessment and Plan Start: 10/19/22 12:14 Freq: Status: Active Protocol: Document 11/18/22 09:04 LRN (Rec: 11/18/22 09:48 LRN [id number]) Physical Therapy Assessment Goals Four Impairment Pt not able to urinary void completely on first sitting. Impairment After initial voiding in sitting, pt has to stand and adjust hips before being able to completely void. Short Term Goal (STG) Improve abdominal soft tissue mobility and relaxation of PF for urinary voiding on first sit 50% of time during the week. STG Duration 12/06/22 Fdc Goal (LTG) Pt will be able to urinary void without having to stand and adjust hips to complete voiding. 11/18/22: Reduced symptoms, with onset of new symptoms of 2nd void close in time to 1st void. LTG Duration 01/22/23 change in symptoms Three Impairment Diastasis Rectus (DR) above umbilicus Impairment DR above umbilicus: 1-3 is 1 /2 finger width (~0.75 cm), 4 above is 1.5 finger widths (~ 2.1 cm). Short Term Goal (STG) Pt will be educated in self intermediate program for closure of DR. STG Duration 11/04/22 Fdc Goal (LTG) Pt will be demonstrate reduced DR on palpation. LTG Duration 01/22/23 Two Impairment Core weakness below umbilicus Impairment Pt not able to maintain core stability with doming noted with supine head lifts and leg raises. Short Term Goal (STG) Pt will demonstrate lower abdominal core tightening ability of drawing in without use of diaphragm to assist without doming on head lifts and leg lifts. STG Duration 11/25/22 Rotary Shear Operator Goal (LTG) Pt will improve sensation and neuromuscular awareness of her lower abdominal region, and improve core strength with minimal doming with use of upper extremities with functional activities or UE strengthening. LTG Duration 01/22/23 One Impairment Pt lacks an independent self care HEP. Short Term Goal (STG) Education in proper methods for transfer with coordination of breathing, proper vulvar/ genital care, and PF stretching ex's. STG Duration 10/28/22 Rotary Shear Operator Goal (LTG) Pt will be independent in a self care HEP for PF relaxation/stretching/ strengthening, core stabilization ex's. 10/28/22: HEP: stretches: piriformis, hip AD's, ER's. 11/18/22: HEP: LE Roll in/out with ball/TBand. Issued Lev 2 TB. LTG Duration 01/22/23 progressed 10/28/22 Assessment Summary Assessment Pt more receptive to doing a bladder diary after explanations of how it can help in modifying things she might be doing to cause onset of symptoms. Pt has difficulty with coordinating ex's and presents with decreased awareness of her body and how to manipulate her movements; therefore progress is slow. With palpation, pt urethra appears tilted, correction obtained with STM on either side of urethra. Bladder appears up on shelf. Superficial PF ms appear tight with gapping at vaginal opening. Physical Therapy Plan Frequency and Duration Frequency of Treatment 1x/Week Plan of Care Start Date 10/21/22 Plan of Care End Date 01/22/23 Next Visit Focus/Plan Next Note Type Treatment Note Next Visit Plan Review bladder diary and discuss as needed fluid needs, stool types, foods. Biofeedback with vaginal or rectal/surface sensor(s). Assess hip ext strength, and issue HEP as needed. Education: Posture, Vulvar/ genital care, proper deep breathing, proper breathing with transfer, and proper body mechanics for best abdominal pressure system. Manual therapy: K-taping for DR, improve abdominal soft tissue (bladder) mobility, STM of abdomen (and urachus), bladder. Wand for self stretch of PF is needed. Ex's: Core strengthening, abdominal/hip mobility, TA strengthening, teach proper isolated Kegels for pelvic stabilization. HEP possible needs: trunk rotation; hip strengthening stretches: ER/Adductors/IR , Happy Baby Pose.
--- NOTE | 2022-12-23 16:45 | PT.OTN ---
Current Diagnoses Muscle weakness (generalized) (12/23/22) Other female genital prolapse (12/23/22) Abnormal posture (12/23/22) Physical Therapy Treatment Note PT-OP-A Visit Information Start: 10/19/22 12:14 Freq: Status: Active Protocol: Document 12/23/22 15:46 LRN (Rec: 12/23/22 16:45 LRN [id number]) Out-Patient Physical Therapy Visit Information Visit Information Visit Type Treatment Note Visit Start Time 15:46 Visit Stop Time 15:13 Total Visit Minutes 29 Visit Number Evaluation Information Evaluation Date 10/21/22 Precautions Precautions Per intake form: x 2, Depression not controlled by meds PT-OP-B Current Condition Start: 10/19/22 12:14 Freq: Status: Active Protocol: Document 10/21/22 14:40 LRN (Rec: 10/22/22 13:34 LRN [id number]) Current Condition History of Current Condition Onset Date 05/19/22 Current Complaints Not able to complete urination in 1 sitting, and concerns of DR. History of Current Condition Pt is a 32 yo female , C- section x 2. Pt had preclampsia with 2nd and preclampsia with her first . The pt c/o numbness in the area of the abdomen from umbilicus distally to pubic bone and transversely the distance between ASIS's. The pt also c /o not being able to void urine completely on sitting, but must stand to wiggle her hips before sitting a second time to complete her voiding. The pt is also concerned if her diastasis rectus (DR) is closing since she has been doing Utube ex's designed to close her DR that she reports worked following her first . Pt denies urinary leakage. Prior Treatments and Tests Exercise workouts on [employer] designed for post- exercise and DR closure. Treatment Goals Patient/Caregiver Goals Pt goal is to be able to urinary void without having to stand and adjust hips before completing void, and to have her DR assessed and for closure. 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 Current Functional Impairments (Reported) Functional Limitations- ADL's Lacks ability to complete urinary voiding in one sitting . Concerns regarding DR separation. Personal Factors Other Personal Factors That May Effect 2 daughters - x 2. Therapy/Recovery Depression not controlled by meds. Spouse with intermittent deployment. Long working hours/week. PT-OP-C Subjective Start: 10/19/22 12:14 Freq: Status: Active Protocol: Document 12/23/22 15:46 LRN (Rec: 12/23/22 16:45 LRN [id number]) OP-PT Subjective Patient Comments Patient Comments Pt had miscarriage 1.5 wks ago of unknown . States she just stopped bleeding a week ago, so wanted to wait until coming back. States was a total surprise . Has appt with OBGyn for permanent control. PT-OP-I Pelvic Floor Start: 10/19/22 12:14 Freq: Status: Active Protocol: Document 10/21/22 14:40 LRN (Rec: 10/22/22 13:34 LRN [id number]) Pelvic Floor Assessment Urine Pelvic Floor Surgery No Other Urinary Symptoms Not able to void completely in one sitting. Requires standing to wiggle hips before completely emptying. Bowel Bowel Surgery No Other Bowel Symptoms Occasional constipation Pelvic Clock Pelvic Clock 3-6 Tenderness Pelvic Clock 6-9 Tenderness Pelvic Clock Other Tissue redness at vaginal entry. Prolapse Cystocele Grade 2 Perineal Descent Resting Absent Bearing Present Contraction Ability Manual Muscle Testing Left 2 Manual Muscle Testing Right 2 Manual Muscle Testing Anterior 1 Manual Muscle Testing Posterior 3 PT-OP-J Posture/Palpation/Skin Start: 10/19/22 12:14 Freq: Status: Active Protocol: Document 10/21/22 14:40 LRN (Rec: 10/22/22 13:34 LRN [id number]) Posture Evaluation Position Standing Head/C-Spine Posture Forward Head L-Spine Posture Increased Lordosis Pelvis Posture Anteriorly Tilted Comments Posture Comments Upper thoracic spine flattened , protruding abdomen appropriate for post-. Palpation Assessment Location Abdomen Palpation Location Abdomen Palpation Details DR above umbilicus: 1-3 is 1 /2 finger width (~0.75 cm), 4 above is 1.5 finger widths (~ 2.[address] DR below umbilicus: 1 is 1/2 finger width (~o.7t cm). [ End ] PT-OP-K Range of Motion Start: 10/19/22 12:14 Freq: Status: Active Protocol: Document 10/28/22 14:35 LRN (Rec: 10/28/22 15:50 LRN [id number]) Hip Goniometric Range of Motion Hip Right Passive Testing Position Supine Straight Leg Raise 80 Abduction 30 Internal Rotation 50 External Rotation 50 Left Passive Testing Position Supine Straight Leg Raise 80 Abduction 30 Internal Rotation 30 External Rotation 50 PT-OP-M Strength Start: 10/19/22 12:14 Freq: Status: Active Protocol: Document 10/21/22 14:40 LRN (Rec: 10/22/22 13:34 LRN [id number]) Trunk Strength Trunk Manual Muscle Testing Core Stabilization Pt lacked core lateral and rotational stability as noted with MMT of hip AB/AD, less with hip flex. Hip Strength Hip Manual Muscle Testing Right Flexion (L2) 5 Normal Abduction 5 Normal Adduction 5 Normal External Rotation 5 Normal Internal Rotation 5 Normal Left Flexion (L2) 5 Normal Abduction 5 Normal Adduction 5 Normal External Rotation 4 Good Internal Rotation 5 Normal PT-OP-Q Treatments Start: 10/19/22 12:14 Freq: Status: Active Protocol: Document 12/23/22 15:46 LRN (Rec: 12/23/22 16:45 LRN [id number]) Therapeutic Exercises Supine Exercises Sup<>Sit Supine Exercise Name Breathing/PF contraction with sup>sit training Side right Reps/Minutes 1x Neck Elongation Supine Exercise Name Neck Elongation Reps/Minutes 5 SH x 10 Comments Cuing at top of head & chin tuck. PF/Deep breathing Supine Exercise Name PF/Deep breathing Reps/Minutes 6' LE roll in/out Supine Exercise Name DB w/LE roll in/out Reps/Minutes 2' Comments Pt requesting stopping of PT due to childcare time constraints Deep breathing training Supine Exercise Name Deep breathing training - slow breath in/out Reps/Minutes 4' Comments Phys & v cuing with self phys cuing. Self-Care/Home Management Treatment Education Patient Education Posture Other Education Discussion of pt current health situation with recommendation of hold on therapy until pt can be assessed by obgyn for s/p miscarriage. Pt agreeable. Pt educated in postural changes post-. PT-OP-T Assessment and Plan Start: 10/19/22 12:14 Freq: Status: Active Protocol: Document 12/23/22 15:46 LRN (Rec: 12/23/22 16:45 LRN [id number]) Physical Therapy Assessment Goals Four Impairment Pt not able to urinary void completely on first sitting. Impairment After initial voiding in sitting, pt has to stand and adjust hips before being able to completely void. Short Term Goal (STG) Improve abdominal soft tissue mobility and relaxation of PF for urinary voiding on first sit 50% of time during the week. STG Duration 12/06/22 Manager Qa Goal (LTG) Pt will be able to urinary void without having to stand and adjust hips to complete voiding. 11/18/22: Reduced symptoms, with onset of new symptoms of 2nd void close in time to 1st void. LTG Duration 01/22/23 change in symptoms Three Impairment Diastasis Rectus (DR) above umbilicus Impairment DR above umbilicus: 1-3 is 1 /2 finger width (~0.75 cm), 4 above is 1.5 finger widths (~ 2.1 cm). Short Term Goal (STG) Pt will be educated in self alf program for closure of DR. STG Duration 11/04/22 Fpc Goal (LTG) Pt will be demonstrate reduced DR on palpation. LTG Duration 01/22/23 Two Impairment Core weakness below umbilicus Impairment Pt not able to maintain core stability with doming noted with supine head lifts and leg raises. Short Term Goal (STG) Pt will demonstrate lower abdominal core tightening ability of drawing in without use of diaphragm to assist without doming on head lifts and leg lifts. STG Duration 11/25/22 Fpc Goal (LTG) Pt will improve sensation and neuromuscular awareness of her lower abdominal region, and improve core strength with minimal doming with use of upper extremities with functional activities or UE strengthening. LTG Duration 01/22/23 One Impairment Pt lacks an independent self care HEP. Short Term Goal (STG) Education in proper methods for transfer with coordination of breathing, proper vulvar/ genital care, and PF stretching ex's. STG Duration 10/28/22 Fpc Goal (LTG) Pt will be independent in a self care HEP for PF relaxation/stretching/ strengthening, core stabilization ex's. 10/28/22: HEP: stretches: piriformis, hip AD's, ER's. 11/18/22: HEP: LE Roll in/out with ball/TBand. Issued Lev 2 TB. LTG Duration 01/22/23 progressed 10/28/22 Assessment Summary Assessment Pt returns with reports of abdominal pain rated 3-4/10 s/ p miscarriage 1.5 weeks ago. Pt was able to tolerate PF strengthening ex's and transfer training with PF contractions without increase in lower abdominal pain. Pt had + response to deep breathing with reduction in abdominal pain. Physical Therapy Plan Frequency and Duration Frequency of Treatment 1x/Week Plan of Care Start Date 10/21/22 Plan of Care End Date 01/22/23 Next Visit Focus/Plan Next Note Type Treatment Note Next Visit Plan Review bladder diary and discuss as needed fluid needs, stool types, foods. Biofeedback with vaginal or rectal/surface sensor(s). Assess hip ext strength, and issue HEP as needed. Education: Posture, Vulvar/ genital care, proper deep breathing, proper breathing with transfer, and proper body mechanics for best abdominal pressure system. Manual therapy: K-taping for DR, improve abdominal soft tissue (bladder) mobility, STM of abdomen (and urachus), bladder. Wand for self stretch of PF is needed. Ex's: Core strengthening, abdominal/hip mobility, TA strengthening, teach proper isolated Kegels for pelvic stabilization. HEP possible needs: trunk rotation; hip strengthening stretches: ER/Adductors/IR , Happy Baby Pose.
--- NOTE | 2023-01-20 17:24 | PT.OTN ---
Current Diagnoses Muscle weakness (generalized) (01/20/23) Other female genital prolapse (01/20/23) Abnormal posture (01/20/23) Physical Therapy Treatment Note PT-OP-A Visit Information Start: 10/19/22 12:14 Freq: Status: Active Protocol: Document 01/20/23 14:16 LRN (Rec: 01/20/23 15:04 LRN [id number]) Out-Patient Physical Therapy Visit Information Visit Information Visit Type Treatment Note Visit Start Time 14:16 Visit Stop Time 15:01 Total Visit Minutes 45 Visit Number Evaluation Information Evaluation Date 10/21/22 Precautions Precautions Per intake form: x 2, Depression not controlled by meds PT-OP-B Current Condition Start: 10/19/22 12:14 Freq: Status: Active Protocol: Document 10/21/22 14:40 LRN (Rec: 10/22/22 13:34 LRN [id number]) Current Condition History of Current Condition Onset Date 05/19/22 Current Complaints Not able to complete urination in 1 sitting, and concerns of DR. History of Current Condition Pt is a 32 yo female , C- section x 2. Pt had preclampsia with 2nd and preclampsia with her first . The pt c/o numbness in the area of the abdomen from umbilicus distally to pubic bone and transversely the distance between ASIS's. The pt also c /o not being able to void urine completely on sitting, but must stand to wiggle her hips before sitting a second time to complete her voiding. The pt is also concerned if her diastasis rectus (DR) is closing since she has been doing Utube ex's designed to close her DR that she reports worked following her first . Pt denies urinary leakage. Prior Treatments and Tests Exercise workouts on [employer] designed for post- exercise and DR closure. Treatment Goals Patient/Caregiver Goals Pt goal is to be able to urinary void without having to stand and adjust hips before completing void, and to have her DR assessed and for closure. 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 Requires travel 1x/month. Current Functional Impairments (Reported) Functional Limitations- ADL's Lacks ability to complete urinary voiding in one sitting . Concerns regarding DR separation. Personal Factors Other Personal Factors That May Effect 2 daughters - x 2. Therapy/Recovery Depression not controlled by meds. Spouse with intermittent deployment. Long working hours/week. PT-OP-C Subjective Start: 10/19/22 12:14 Freq: Status: Active Protocol: Document 01/20/23 14:16 LRN (Rec: 01/20/23 15:04 LRN [id number]) OP-PT Subjective Patient Comments Patient Comments No changes. PT-OP-I Pelvic Floor Start: 10/19/22 12:14 Freq: Status: Active Protocol: Document 01/20/23 14:16 LRN (Rec: 01/20/23 15:04 LRN [id number]) Pelvic Floor Assessment SEMG (uV) Baseline 3.2 Quick Contraction 15.7 10 Second Contraction 14.5 Recruitment Pattern Good Relaxation Fair Holding Fair Stability of Hold Fair SEMG Stability of Rest Fair Comments Pelvic Floor Comments Avg rest for Quick Contraction : 7.2uV's Avg rest for 10 Sec Contraction: 3.5 uV's. PT-OP-J Posture/Palpation/Skin Start: 10/19/22 12:14 Freq: Status: Active Protocol: Document 10/21/22 14:40 LRN (Rec: 10/22/22 13:34 LRN [id number]) Posture Evaluation Position Standing Head/C-Spine Posture Forward Head L-Spine Posture Increased Lordosis Pelvis Posture Anteriorly Tilted Comments Posture Comments Upper thoracic spine flattened , protruding abdomen appropriate for post-. Palpation Assessment Location Abdomen Palpation Location Abdomen Palpation Details DR above umbilicus: 1-3 is 1 /2 finger width (~0.75 cm), 4 above is 1.5 finger widths (~ 2.[address] cm). DR below umbilicus: 1 is 1/2 finger width (~o.7t cm). [ End ] PT-OP-K Range of Motion Start: 10/19/22 12:14 Freq: Status: Active Protocol: Document 10/28/22 14:35 LRN (Rec: 10/28/22 15:50 LRN [id number]) Hip Goniometric Range of Motion Hip Right Passive Testing Position Supine Straight Leg Raise 80 Abduction 30 Internal Rotation 50 External Rotation 50 Left Passive Testing Position Supine Straight Leg Raise 80 Abduction 30 Internal Rotation 30 External Rotation 50 PT-OP-M Strength Start: 10/19/22 12:14 Freq: Status: Active Protocol: Document 01/20/23 14:16 LRN (Rec: 01/20/23 15:04 LRN [id number]) Hip Strength Hip Manual Muscle Testing Right Flexion (L2) 5 Normal Abduction 5 Normal Adduction 5 Normal External Rotation 5 Normal Internal Rotation 5 Normal Left Flexion (L2) 5 Normal Abduction 5 Normal Adduction 5 Normal External Rotation 5 Normal Internal Rotation 5 Normal PT-OP-Q Treatments Start: 10/19/22 12:14 Freq: Status: Active Protocol: Document 01/20/23 14:16 LRN (Rec: 01/20/23 15:04 LRN [id number]) Neuro Re-Education Treatment Other Activities vEMG Biofeedback Details Biofeedback for holding and relaxation. Reps/Duration 30' Self-Care/Home Management Treatment Education Other Education Discussed Doming with ex's as not to do and how to transfer with use of sheet to minimize DR. Activities Self-Care/Home Management Activities Issued handouts for proper vulvar/genital care PT-OP-T Assessment and Plan Start: 10/19/22 12:14 Freq: Status: Active Protocol: Document 01/20/23 14:16 LRN (Rec: 01/20/23 15:04 LRN [id number]) Physical Therapy Assessment Rehab Potential Rehabilitation Potential Excellent Evaluation Complexity Number of Personal Factors/Comorbidities 1-2 Number of Body Systems Impaired 4 or More Clinical Presentation at Evaluation Evolving Impairments Impairments Integument,Posture,ROM, Sensation,Soft Tissue Mobility ,Strength,Tone,Transfers Other Impairments Dysfunctional urinary voiding Goals Four Impairment Pt not able to urinary void completely on first sitting. Impairment After initial voiding in sitting, pt has to stand and adjust hips before being able to completely void. Short Term Goal (STG) Improve abdominal soft tissue mobility and relaxation of PF for urinary voiding on first sit 50% of time during the week. STG Duration 03/06/23 Electrical Engineering Designer Goal (LTG) Pt will be able to urinary void without having to stand and adjust hips to complete voiding. 11/18/22: Reduced symptoms, with onset of new symptoms of 2nd void close in time to 1st void. LTG Duration 03/24/23 change in symptoms 11/18/22 Three Impairment Diastasis Rectus (DR) above umbilicus Impairment DR above umbilicus: 1-3 is 1 /2 finger width (~0.75 cm), 4 above is 1.5 finger widths (~ 2.[address] above umbilics: 1-3 is 1. 5 finger widths. Below umbilics: 3 is closed, 2 is 2 finger widths, 1 is 2.5 finger widths. Short Term Goal (STG) Pt will be educated in self long term program for closure of DR. 01/20/23: Educated pt in use of towel to help with closure of DR during ex and transfers. Issued handout for review next appt of Get your Belly Back , self care for self monitoring of DR with abdominal strengthening. STG Duration 03/06/23 progressed 01/20/23 Electrical Engineering Designer Goal (LTG) Pt will demonstrate reduced DR on palpation. LTG Duration 03/24/23 Two Impairment Core weakness below umbilicus Impairment Pt not able to maintain core stability with doming noted with supine head lifts and leg raises. Short Term Goal (STG) Pt will demonstrate lower abdominal core tightening ability of drawing in without use of diaphragm to assist without doming on head lifts and leg lifts. 01/20/23: Initial teaching of TA tightening STG Duration 03/06/23 progressed 01/20/23 Detention Goal (LTG) Pt will improve sensation and neuromuscular awareness of her lower abdominal region, and improve core strength with minimal doming with use of upper extremities with functional activities or UE strengthening. LTG Duration 03/24/23 One Impairment Pt lacks an independent self care HEP. Short Term Goal (STG) Education in proper methods for transfer with coordination of breathing, proper vulvar/ genital care, and PF stretching ex's. 01/20/23: Issued education handout of proper vulvar/ genital care to be reviewed next appt. STG Duration 03/06/23 progressed 01/20/23 Detention Goal (LTG) Pt will be independent in a self care HEP for PF relaxation/stretching/ strengthening, core stabilization ex's. 10/28/22: HEP: stretches: piriformis, hip AD's, ER's. 11/18/22: HEP: LE Roll in/out with ball/TBand. Issued Lev 2 TB. LTG Duration 03/24/23 progressed 10/28/22 Assessment Summary Assessment Pt attends her 5th visit over 3 months for difficulty voiding due to PF tightness generally but weakness of anterior PF muscles and to improve awareness of her lower core muscles and treatment for her diastasis rectus. Poor pressure core management was thought to be the reason for her dysfunctional urinary voiding. Per EMG biofeedback she demonstrates a good avg resting tone 3.1 uV's and fairly good strength of contraction at 14.5 uV's, although her ability to maintain the contraction is for ~3 secs before it starts to decrease and when stressed her PF tone increases. Her Hip strength is normal bilaterally, her transverse abdominal (TA) strength is poor with pt not able to tighten her TA without pulling in her rectus abdominus. She demonstrates doming of her abdomen with a head lift and it appears her diatasis rectus is a little worse since her initial assessment on 10/21/22; therefore further training and further skilled physical therapy is needed to improve TA strength and progress the pt towards achieving the above stated goals. The pt has not been able to schedule visits for therapy; therefore progress is slow. Physical Therapy Plan Frequency and Duration Frequency of Treatment 1x/Week Plan of Care Start Date 01/20/23 Plan of Care End Date 03/24/23 Therapeutic Interventions Therapeutic Interventions Home Exercise Program,Joint Mobilizations,Manual Therapy, Neuromuscular Re-education, Patient/Caregiver Education, Self-Care/Home Management,Soft Tissue Mobilization,Taping, Therapeutic Activities, Therapeutic Exercises Modalities Biofeedback,Cold Pack/Ice Massage,Hot Packs Other Therapeutic Interventions K-tape. Next Visit Focus/Plan Next Note Type Treatment Note Next Visit Plan Review proper Vulvar/genital care and self abdominal assessment for DR and protection of DR, and TA tightening in different positions (sidelie 4pt, sitting, standing) POC focus: of next 4 weeks is education, STM of abdomen/scar , DR closure, improve voiding ability with PF relaxation with improved anterior PF strength. Educate: proper deep breathing, proper breathing with transfer to protect DR, and proper body mechanics for best abdominal pressure system , proper posture and the postural changes with . Manual therapy: K-taping for DR, improve abdominal soft tissue (bladder) mobility, STM of abdomen (and urachus), bladder. Wand for self stretch of PF is needed. Ex's: Core strengthening, abdominal/hip mobility, TA strengthening, teach proper isolated Relaxation of PF especially if kegels given for pelvic stabilization. HEP possible needs: trunk rotation; hip strengthening stretches: ER/Adductors/IR , Happy Baby Pose.
--- NOTE | 2023-01-27 14:23 | PT-OP ANOTE ---
Per phone pt apologizes and states she though her appt was 1400 and was just getting ready to head down for therapy. Pt notified of her next therapy appointment.
--- NOTE | 2023-02-03 16:36 | PT.OTN ---
Current Diagnoses Muscle weakness (generalized) (02/03/23) Other female genital prolapse (02/03/23) Abnormal posture (02/03/23) Physical Therapy Treatment Note PT-OP-A Visit Information Start: 10/19/22 12:14 Freq: Status: Active Protocol: Document 02/03/23 15:09 LRN (Rec: 02/03/23 16:36 LRN [id number]) Out-Patient Physical Therapy Visit Information Visit Information Visit Type Treatment Note Visit Start Time 15:09 Visit Stop Time 15:47 Total Visit Minutes 38 Visit Number Evaluation Information Evaluation Date 10/21/22 Precautions Precautions Per intake form: x 2, Depression not controlled by meds PT-OP-B Current Condition Start: 10/19/22 12:14 Freq: Status: Active Protocol: Document 10/21/22 14:40 LRN (Rec: 10/22/22 13:34 LRN [id number]) Current Condition History of Current Condition Onset Date 05/19/22 Current Complaints Not able to complete urination in 1 sitting, and concerns of DR. History of Current Condition Pt is a 32 yo female , C- section x 2. Pt had preclampsia with 2nd and preclampsia with her first . The pt c/o numbness in the area of the abdomen from umbilicus distally to pubic bone and transversely the distance between ASIS's. The pt also c /o not being able to void urine completely on sitting, but must stand to wiggle her hips before sitting a second time to complete her voiding. The pt is also concerned if her diastasis rectus (DR) is closing since she has been doing Utube ex's designed to close her DR that she reports worked following her first . Pt denies urinary leakage. Prior Treatments and Tests Exercise workouts on [employer] designed for post- exercise and DR closure. Treatment Goals Patient/Caregiver Goals Pt goal is to be able to urinary void without having to stand and adjust hips before completing void, and to have her DR assessed and for closure. 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 Current Functional Impairments (Reported) Functional Limitations- ADL's Lacks ability to complete urinary voiding in one sitting . Concerns regarding DR separation. Personal Factors Other Personal Factors That May Effect 2 daughters - x 2. Therapy/Recovery Depression not controlled by meds. Spouse with intermittent deployment. Long working hours/week. PT-OP-C Subjective Start: 10/19/22 12:14 Freq: Status: Active Protocol: Document 02/03/23 15:09 LRN (Rec: 02/03/23 16:36 LRN [id number]) OP-PT Subjective Patient Comments Patient Comments Hasn't had urge to double empty for awhile. States she has numbness from scar to belly button, but can feel everywere else. PT-OP-I Pelvic Floor Start: 10/19/22 12:14 Freq: Status: Active Protocol: Document 01/20/23 14:16 LRN (Rec: 01/20/23 15:04 LRN [id number]) Pelvic Floor Assessment SEMG (uV) Baseline 3.2 Quick Contraction 15.7 10 Second Contraction 14.5 Recruitment Pattern Good Relaxation Fair Holding Fair Stability of Hold Fair SEMG Stability of Rest Fair Comments Pelvic Floor Comments Avg rest for Quick Contraction : 7.2uV's Avg rest for 10 Sec Contraction: 3.5 uV's. PT-OP-J Posture/Palpation/Skin Start: 10/19/22 12:14 Freq: Status: Active Protocol: Document 10/21/22 14:40 LRN (Rec: 10/22/22 13:34 LRN [id number]) Posture Evaluation Position Standing Head/C-Spine Posture Forward Head L-Spine Posture Increased Lordosis Pelvis Posture Anteriorly Tilted Comments Posture Comments Upper thoracic spine flattened , protruding abdomen appropriate for post-. Palpation Assessment Location Abdomen Palpation Location Abdomen Palpation Details DR above umbilicus: 1-3 is 1 /2 finger width (~0.75 cm), 4 above is 1.5 finger widths (~ 2.[address] cm[address] DR below umbilicus: 1 is 1/2 finger width (~o.7t cm). [ End ] PT-OP-K Range of Motion Start: 10/19/22 12:14 Freq: Status: Active Protocol: Document 10/28/22 14:35 LRN (Rec: 10/28/22 15:50 LRN [id number]) Hip Goniometric Range of Motion Hip Right Passive Testing Position Supine Straight Leg Raise 80 Abduction 30 Internal Rotation 50 External Rotation 50 Left Passive Testing Position Supine Straight Leg Raise 80 Abduction 30 Internal Rotation 30 External Rotation 50 PT-OP-M Strength Start: 10/19/22 12:14 Freq: Status: Active Protocol: Document 01/20/23 14:16 LRN (Rec: 01/20/23 15:04 LRN [id number]) Hip Strength Hip Manual Muscle Testing Right Flexion (L2) 5 Normal Abduction 5 Normal Adduction 5 Normal External Rotation 5 Normal Internal Rotation 5 Normal Left Flexion (L2) 5 Normal Abduction 5 Normal Adduction 5 Normal External Rotation 5 Normal Internal Rotation 5 Normal PT-OP-Q Treatments Start: 10/19/22 12:14 Freq: Status: Active Protocol: Document 02/03/23 15:09 LRN (Rec: 02/03/23 16:36 LRN [id number]) Therapeutic Exercises Supine Exercises Hands/knees press-rotation Supine Exercise Name Hands/knees press training Reps/Minutes 5' Hands/knees press Supine Exercise Name Hands/knees press (TA tightening), cuing to lwr AB & LB Reps/Minutes 5' Comments Phy w/verbal cuing throughout ex to improve pt awareness of TA contraction Sup<>Sit Supine Exercise Name Breathing/PF contraction with sup>sit training Side right Reps/Minutes 1x Standing Exercises Trunk Rot Standing Exercise Name Upper obliques R rot> L rot Side bilateral Reps/Minutes 12' Paloff Press Standing Exercise Name Side step out Side bilateral Equipment Used L2 TB Reps/Minutes 7' Self-Care/Home Management Treatment Education Other Education Educated pt in self DR assessment, and discussed different ways to determine closure of DR. Activities Self-Care/Home Management Activities Reviewed proper core pressure management with transfers and discused DR protection. PT-OP-T Assessment and Plan Start: 10/19/22 12:14 Freq: Status: Active Protocol: Document 02/03/23 15:09 LRN (Rec: 02/03/23 16:36 LRN [id number]) Physical Therapy Assessment Goals Four Impairment Pt not able to urinary void completely on first sitting. Impairment After initial voiding in sitting, pt has to stand and adjust hips before being able to completely void. Short Term Goal (STG) Improve abdominal soft tissue mobility and relaxation of PF for urinary voiding on first sit 50% of time during the week. STG Duration 03/06/23 (02/03/23: MET GOAL) Survey Research Associate Goal (LTG) Pt will be able to urinary void without having to stand and adjust hips to complete voiding. 11/18/22: Reduced symptoms, with onset of new symptoms of 2nd void close in time to 1st void. LTG Duration 03/24/23 (02/03/23: MET GOAL) Three Impairment Diastasis Rectus (DR) above umbilicus Impairment DR above umbilicus: 1-3 is 1 /2 finger width (~0.75 cm), 4 above is 1.5 finger widths (~ 2.[address] cm[address] DR above umbilics: 1-3 is 1. 5 finger widths. Below umbilics: 3 is closed, 2 is 2 finger widths, 1 is 2.5 finger widths. Short Term Goal (STG) Pt will be educated in self senior living program for closure of DR. 01/20/23: Educated pt in use of towel to help with closure of DR during ex and transfers. Issued handout for review next appt of Get your Belly Back , self care for self monitoring of DR with abdominal strengthening. 02/03/23: Pt educated in self assessment for DR with discussion on depth as well as width. STG Duration 03/06/23 (02/03/23: MET GOAL) Assisted Goal (LTG) Pt will demonstrate reduced DR on palpation. 02/03/23: Above umbilicus 1-4 is 2.25-2 fingerwidths. Below Umbilicus 3 is closed, 2 is 2 fingerwidths, 1 is 2. 5 fingerwidths. LTG Duration 03/24/23 worse above umbilicus, same below umbilicus. Two Impairment Core weakness below umbilicus Impairment Pt not able to maintain core stability with doming noted with supine head lifts and leg raises. Short Term Goal (STG) Pt will demonstrate lower abdominal core tightening ability of drawing in without use of diaphragm to assist without doming on head lifts and leg lifts. 01/20/23: Initial teaching of TA tightening STG Duration 03/06/23 progressed 01/20/23 Assisted Goal (LTG) Pt will improve sensation and neuromuscular awareness of her lower abdominal region, and improve core strength with minimal doming with use of upper extremities with functional activities or UE strengthening. LTG Duration 03/24/23 One Impairment Pt lacks an independent self care HEP. Short Term Goal (STG) Education in proper methods for transfer with coordination of breathing, proper vulvar/ genital care, and PF stretching ex's. 01/20/23: Issued education handout of proper vulvar/ genital care to be reviewed next appt. 02/03/23: Reviewed proper coordination of breathing with transfers for core pressure management. STG Duration 03/06/23 progressed 02/03/23 Survey Research Associate Goal (LTG) Pt will be independent in a self care HEP for PF relaxation/stretching/ strengthening, core stabilization ex's. 10/28/22: HEP: stretches: piriformis, hip AD's, ER's. 11/18/22: HEP: LE Roll in/out with ball/TBand. Issued Lev 2 TB. LTG Duration 03/24/23 progressed 10/28/22 Progress Towards Goals Progress Comments Goal #4 MET. STG #3 MET. Assessment Summary Assessment Pt no longer reports difficulty voiding. She reports returning to running. Her primary concern is her DR and core instability. Pt L ER weakness with difficulty drawing L ribs inward with rotation. Able to palpate lower TA but pt has poor awareness due to lack of contraction sensation. Physical Therapy Plan Frequency and Duration Frequency of Treatment 1x/Week Plan of Care Start Date 01/20/23 Plan of Care End Date 03/24/23 Next Visit Focus/Plan Next Note Type Treatment Note Next Visit Plan Review TA tightening in different positions (sidelie, 4pt, sitting, standing). Add to HEP: Stretches: ER/ Adductors/IR, Happy Baby Pose. Try hot/cold to abdomen to promote healing with caution due to pt has loss of sensation. POC focus: of next 2 weeks is education of PF stretches and core rotator ex's, STM of abdomen/scar, DR closure, improved anterior PF strength. Educate: proper deep breathing, proper posture and the postural changes with . Manual therapy: K-taping for DR, Ex's: Core strengthening, abdominal rotators/hip mobility, TA strengthening, teach proper isolated Relaxation of PF especially if kegels given for pelvic stabilization. HEP possible needs: trunk rotation; hip strengthening
--- NOTE | 2023-03-10 17:12 | PT.OTN ---
Current Diagnoses Muscle weakness (generalized) (03/10/23) Other female genital prolapse (03/10/23) Abnormal posture (03/10/23) Physical Therapy Treatment Note PT-OP-A Visit Information Start: 10/19/22 12:14 Freq: Status: Active Protocol: Document 03/10/23 14:06 LRN (Rec: 03/10/23 14:52 LRN [id number]) Out-Patient Physical Therapy Visit Information Visit Information Visit Type Treatment Note Visit Start Time 14:06 Visit Stop Time 14:45 Total Visit Minutes 39 Visit Number Evaluation Information Evaluation Date 10/21/22 Precautions Precautions Per intake form: x 2, Depression not controlled by meds PT-OP-B Current Condition Start: 10/19/22 12:14 Freq: Status: Active Protocol: Document 10/21/22 14:40 LRN (Rec: 10/22/22 13:34 LRN [id number]) Current Condition History of Current Condition Onset Date 05/19/22 Current Complaints Not able to complete urination in 1 sitting, and concerns of DR. History of Current Condition Pt is a 32 yo female , C- section x 2. Pt had preclampsia with 2nd and preclampsia with her first . The pt c/o numbness in the area of the abdomen from umbilicus distally to pubic bone and transversely the distance between ASIS's. The pt also c /o not being able to void urine completely on sitting, but must stand to wiggle her hips before sitting a second time to complete her voiding. The pt is also concerned if her diastasis rectus (DR) is closing since she has been doing Utube ex's designed to close her DR that she reports worked following her first . Pt denies urinary leakage. Prior Treatments and Tests Exercise workouts on [employer] designed for post- exercise and DR closure. Treatment Goals Patient/Caregiver Goals Pt goal is to be able to urinary void without having to stand and adjust hips before completing void, and to have her DR assessed and for closure. 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 Current Functional Impairments (Reported) Functional Limitations- ADL's Lacks ability to complete urinary voiding in one sitting . Concerns regarding DR separation. Personal Factors Other Personal Factors That May Effect 2 daughters - x 2. Therapy/Recovery Depression not controlled by meds. Spouse with intermittent deployment. Long working hours/week. PT-OP-C Subjective Start: 10/19/22 12:14 Freq: Status: Active Protocol: Document 03/10/23 14:06 LRN (Rec: 03/10/23 14:52 LRN [id number]) OP-PT Subjective Patient Comments Patient Comments Travelling a lot. No change. PT-OP-I Pelvic Floor Start: 10/19/22 12:14 Freq: Status: Active Protocol: Document 01/20/23 14:16 LRN (Rec: 01/20/23 15:04 LRN [id number]) Pelvic Floor Assessment SEMG (uV) Baseline 3.2 Quick Contraction 15.7 10 Second Contraction 14.5 Recruitment Pattern Good Relaxation Fair Holding Fair Stability of Hold Fair SEMG Stability of Rest Fair Comments Pelvic Floor Comments Avg rest for Quick Contraction : 7.2uV's Avg rest for 10 Sec Contraction: 3.5 uV's. PT-OP-J Posture/Palpation/Skin Start: 10/19/22 12:14 Freq: Status: Active Protocol: Document 10/21/22 14:40 LRN (Rec: 10/22/22 13:34 LRN [id number]) Posture Evaluation Position Standing Head/C-Spine Posture Forward Head L-Spine Posture Increased Lordosis Pelvis Posture Anteriorly Tilted Comments Posture Comments Upper thoracic spine flattened , protruding abdomen appropriate for post-. Palpation Assessment Location Abdomen Palpation Location Abdomen Palpation Details DR above umbilicus: 1-3 is 1 /2 finger width (~0.75 cm), 4 above is 1.5 finger widths (~ 2.[address] DR below umbilicus: 1 is 1/2 finger width (~o.7t cm). [ End ] PT-OP-K Range of Motion Start: 10/19/22 12:14 Freq: Status: Active Protocol: Document 10/28/22 14:35 LRN (Rec: 10/28/22 15:50 LRN [id number]) Hip Goniometric Range of Motion Hip Right Passive Testing Position Supine Straight Leg Raise 80 Abduction 30 Internal Rotation 50 External Rotation 50 Left Passive Testing Position Supine Straight Leg Raise 80 Abduction 30 Internal Rotation 30 External Rotation 50 PT-OP-M Strength Start: 10/19/22 12:14 Freq: Status: Active Protocol: Document 01/20/23 14:16 LRN (Rec: 01/20/23 15:04 LRN [id number]) Hip Strength Hip Manual Muscle Testing Right Flexion (L2) 5 Normal Abduction 5 Normal Adduction 5 Normal External Rotation 5 Normal Internal Rotation 5 Normal Left Flexion (L2) 5 Normal Abduction 5 Normal Adduction 5 Normal External Rotation 5 Normal Internal Rotation 5 Normal PT-OP-Q Treatments Start: 10/19/22 12:14 Freq: Status: Active Protocol: Document 03/10/23 14:06 LRN (Rec: 03/10/23 14:52 LRN [id number]) Therapeutic Exercises Supine Exercises Piriformis stretch Supine Exercise Name Piriformis stretch Side bilateral Reps/Minutes 60 SH x 1 each Fig 4 stretch Supine Exercise Name Fig 4 stretch, R>L (sequence: 3 breaths, 10 active ankle/hip ER range. Side bilateral Reps/Minutes 60+ SH, 2x R, 1x L Comments Extra time taken to determine max rochelle stretch position Sitting Exercises Hip AD stretch Sitting Exercise Name Hip AD stretch in sidesit on plinth Side left Reps/Minutes 4' Standing Exercises Trunk Rot Standing Exercise Name Upper obliques R rot> L rot Side bilateral Reps/Minutes 12' Manual Therapy Treatment Soft Tissue Mobilization Abdomen Body Location MFR for movement to R side and CCW Mobilization Type Sustained Pressure Intensity/Depth Moderate Body Position Supine Comments Training of pt in self STM to abdomen for tension on R side with glide to R. Self-Care/Home Management Treatment Education Patient Education Home Exercise Program Activities Self-Care/Home Management Activities Issued & reviewed HEP: Happy Baby Pose, Stretches: Hip AD, Piriformis, Lateral hip, Fig 4 . PT-OP-T Assessment and Plan Start: 10/19/22 12:14 Freq: Status: Active Protocol: Document 03/10/23 14:06 LRN (Rec: 03/10/23 14:52 LRN [id number]) Physical Therapy Assessment Goals Four Impairment Pt not able to urinary void completely on first sitting. Impairment After initial voiding in sitting, pt has to stand and adjust hips before being able to completely void. Short Term Goal (STG) Improve abdominal soft tissue mobility and relaxation of PF for urinary voiding on first sit 50% of time during the week. STG Duration 03/06/23 (02/03/23: MET GOAL) Systems Analyst Engineer Goal (LTG) Pt will be able to urinary void without having to stand and adjust hips to complete voiding. 11/18/22: Reduced symptoms, with onset of new symptoms of 2nd void close in time to 1st void. LTG Duration 03/24/23 (02/03/23: MET GOAL) Three Impairment Diastasis Rectus (DR) above umbilicus Impairment DR above umbilicus: 1-3 is 1 /2 finger width (~0.75 cm), 4 above is 1.5 finger widths (~ 2.[address] above umbilics: 1-3 is 1. 5 finger widths. Below umbilics: 3 is closed, 2 is 2 finger widths, 1 is 2.5 finger widths. Short Term Goal (STG) Pt will be educated in self shelter program for closure of DR. 01/20/23: Educated pt in use of towel to help with closure of DR during ex and transfers. Issued handout for review next appt of Get your Belly Back , self care for self monitoring of DR with abdominal strengthening. 02/03/23: Pt educated in self assessment for DR with discussion on depth as well as width. STG Duration 03/06/23 (02/03/23: MET GOAL) Systems Analyst Engineer Goal (LTG) Pt will demonstrate reduced DR on palpation. 02/03/23: Above umbilicus 1-4 is 2.25-2 fingerwidths. Below Umbilicus 3 is closed, 2 is 2 fingerwidths, 1 is 2. 5 fingerwidths. LTG Duration 03/24/23 worse above umbilicus, same below umbilicus. Two Impairment Core weakness below umbilicus Impairment Pt not able to maintain core stability with doming noted with supine head lifts and leg raises. Short Term Goal (STG) Pt will demonstrate lower abdominal core tightening ability of drawing in without use of diaphragm to assist without doming on head lifts and leg lifts. 01/20/23: Initial teaching of TA tightening STG Duration 03/06/23 progressed 01/20/23 [facility] Goal (LTG) Pt will improve sensation and neuromuscular awareness of her lower abdominal region, and improve core strength with minimal doming with use of upper extremities with functional activities or UE strengthening. LTG Duration 03/24/23 One Impairment Pt lacks an independent self care HEP. Short Term Goal (STG) Education in proper methods for transfer with coordination of breathing, proper vulvar/ genital care, and PF stretching ex's. 01/20/23: Issued education handout of proper vulvar/ genital care to be reviewed next appt. 02/03/23: Reviewed proper coordination of breathing with transfers for core pressure management. 03/10/23: Pt educated in PF stretch (Happy Baby Pose) STG Duration 03/06/23 (03/10/23: MET GOAL ) [facility] Goal (LTG) Pt will be independent in a self care HEP for PF relaxation/stretching/ strengthening, core stabilization ex's. 10/28/22: HEP: stretches: piriformis, hip AD's, ER's. 11/18/22: HEP: LE Roll in/out with ball/TBand. Issued Lev 2 TB. 03/10/29: HEP: Happy Baby Pose, Stretches: Hip AD, Piriformis, Lateral hip, Fig 4 . LTG Duration 03/24/23 progressed 03/10/23 (need core stab) Progress Towards Goals Progress Comments STG #1 MET. Assessment Summary Assessment Still having numbness at scar. Good understanding of hip and PF stretch. PT needs core stab/rot strengthening. TA weak around umbilicus. Physical Therapy Plan Frequency and Duration Frequency of Treatment 1x/Week Plan of Care Start Date 01/20/23 Plan of Care End Date 03/24/23 Next Visit Focus/Plan Next Note Type Progress Note Next Visit Plan New POC needed (check dates). Review TA tightening in different positions (sidelie, 4pt, sitting, standing). Review HEP: Stretches: ER/ Adductors/IR, Happy Baby Pose. Educate: postural changes with . Educate in hot/cold to abdomen to promote healing with caution due to pt has loss of sensation. POC focus: core & rotator ex's , STM of abdomen/scar, DR closure, improved anterior PF strength. Manual therapy: ?K-taping for DR, Ex's: abdominal rotators/hip mobility, TA strengthening, teach proper isolated Relaxation of PF especially if kegels given for pelvic stabilization. HEP possible needs: hip strengthening
--- NOTE | 2023-03-17 17:00 | PT.OTN ---
Current Diagnoses Muscle weakness (generalized) (03/17/23) Other female genital prolapse (03/17/23) Abnormal posture (03/17/23) Physical Therapy Treatment Note PT-OP-A Visit Information Start: 10/19/22 12:14 Freq: Status: Active Protocol: Document 03/17/23 14:00 LRN (Rec: 03/17/23 14:59 LRN [id number]) Out-Patient Physical Therapy Visit Information Visit Information Visit Type Progress Note Visit Note Pt did not bring her vaginal electrode. Visit Start Time 14:00 Visit Stop Time 14:42 Total Visit Minutes 41 Visit Number Evaluation Information Evaluation Date 10/21/22 Precautions Precautions Per intake form: x 2, Depression not controlled by meds PT-OP-B Current Condition Start: 10/19/22 12:14 Freq: Status: Active Protocol: Document 10/21/22 14:40 LRN (Rec: 10/22/22 13:34 LRN [id number]) Current Condition History of Current Condition Onset Date 05/19/22 Current Complaints Not able to complete urination in 1 sitting, and concerns of DR. History of Current Condition Pt is a 32 yo female , C- section x 2. Pt had preclampsia with 2nd and preclampsia with her first . The pt c/o numbness in the area of the abdomen from umbilicus distally to pubic bone and transversely the distance between ASIS's. The pt also c /o not being able to void urine completely on sitting, but must stand to wiggle her hips before sitting a second time to complete her voiding. The pt is also concerned if her diastasis rectus (DR) is closing since she has been doing Utube ex's designed to close her DR that she reports worked following her first . Pt denies urinary leakage. Prior Treatments and Tests Exercise workouts on [email or web address] designed for post- exercise and DR closure. Treatment Goals Patient/Caregiver Goals Pt goal is to be able to urinary void without having to stand and adjust hips before completing void, and to have her DR assessed and for closure. 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 Current Functional Impairments (Reported) Functional Limitations- ADL's Lacks ability to complete urinary voiding in one sitting . Concerns regarding DR alexander. Personal Factors Other Personal Factors That May Effect 2 daughters - x 2. Therapy/Recovery Depression not controlled by meds. Spouse with intermittent deployment. Long working hours/week. PT-OP-C Subjective Start: 10/19/22 12:14 Freq: Status: Active Protocol: Document 03/17/23 14:00 LRN (Rec: 03/17/23 14:59 LRN [id number]) OP-PT Subjective Patient Comments Patient Comments No changes. Just came back from [place] for the 4th. States has been doing rotation ex's. PT-OP-I Pelvic Floor Start: 10/19/22 12:14 Freq: Status: Active Protocol: Document 01/20/23 14:16 LRN (Rec: 01/20/23 15:04 LRN [id number]) Pelvic Floor Assessment SEMG (uV) Baseline 3.2 Quick Contraction 15.7 10 Second Contraction 14.5 Recruitment Pattern Good Relaxation Fair Holding Fair Stability of Hold Fair SEMG Stability of Rest Fair Comments Pelvic Floor Comments Avg rest for Quick Contraction : 7.2uV's Avg rest for 10 Sec Contraction: 3.5 uV's. PT-OP-J Posture/Palpation/Skin Start: 10/19/22 12:14 Freq: Status: Active Protocol: Document 03/17/23 14:00 LRN (Rec: 03/17/23 16:58 LRN [id number]) Palpation Assessment Location Abdomen Palpation Location Abdomen Palpation Details Above umbilicus: 1 is 2.25 finger width (~2.0 cm), 2-3 above is 1.5 finger widths (~2 .5 cm), 4 above is 0.5 finger width. Below umbilicus: 1 is 2.5 finger width (~ 2.5 cm), 2 is 2 finger widths (2.8 cm), 3 closed. [ End ] PT-OP-K Range of Motion Start: 10/19/22 12:14 Freq: Status: Active Protocol: Document 10/28/22 14:35 LRN (Rec: 10/28/22 15:50 LRN [id number]) Hip Goniometric Range of Motion Hip Right Passive Testing Position Supine Straight Leg Raise 80 Abduction 30 Internal Rotation 50 External Rotation 50 Left Passive Testing Position Supine Straight Leg Raise 80 Abduction 30 Internal Rotation 30 External Rotation 50 PT-OP-M Strength Start: 10/19/22 12:14 Freq: Status: Active Protocol: Document 01/20/23 14:16 LRN (Rec: 01/20/23 15:04 LRN [id number]) Hip Strength Hip Manual Muscle Testing Right Flexion (L2) 5 Normal Abduction 5 Normal Adduction 5 Normal External Rotation 5 Normal Internal Rotation 5 Normal Left Flexion (L2) 5 Normal Abduction 5 Normal Adduction 5 Normal External Rotation 5 Normal Internal Rotation 5 Normal PT-OP-Q Treatments Start: 10/19/22 12:14 Freq: Status: Active Protocol: Document 03/17/23 14:00 LRN (Rec: 03/17/23 14:59 LRN [id number]) Therapeutic Exercises Supine Exercises TA tightening Supine Exercise Name TA tightening and awareness training Reps/Minutes 15' with phy/v cuing and self phys feedback (hands on abdomen) Comments Much cuing for TA with and w/o use of exhale action to tighten LE heels off wall Supine Exercise Name LE heels off wall Comments Phys and v cuing for slow TA tightening focus to prevent doming LE wall slides/AB-AD Supine Exercise Name Wall slides/AB-AD Comments Phys and v cuing for TA tightening Hands/knees press Supine Exercise Name Hands/knees press (TA tightening), cuing to lwr AB & LB Reps/Minutes 5' Comments Phy w/verbal cuing throughout ex to improve pt awareness of TA contraction Sidelying Exercises TA tighening Sidelying Exercise Name TA tightening Reps/Minutes 3' Comments Phys and v cuing with awareness training for contraction. Sitting Exercises Posture re-ed Sitting Exercise Name Educated in proper sit posture for neutral spine positioning Comments Cuing for anter pelvic tilt. Other Exercises 4 pt TA tightening Other Exercise Name TA tightening Reps/Minutes 5' Comments phys cuing to area below umbilicus and to keep neutral spine Self-Care/Home Management Treatment Education Other Education Discussed results of DR and TA assessment, fluid management, goals, and plan of care (POC) . Pt agreeable to goals and POC. Discussed use of hot/cold to improve abdominal sensation and promote healing. Activities Self-Care/Home Management Activities Issued handout for hot/cold treatment to be done on abdomen to promote nerve healing. PT-OP-T Assessment and Plan Start: 10/19/22 12:14 Freq: Status: Active Protocol: Document 03/17/23 14:00 LRN (Rec: 03/17/23 14:59 LRN [id number]) Physical Therapy Assessment Rehab Potential Rehabilitation Potential Excellent Evaluation Complexity Number of Personal Factors/Comorbidities 1-2 Number of Body Systems Impaired 4 or More Clinical Presentation at Evaluation Evolving Impairments Impairments Integument,Posture,ROM, Sensation,Soft Tissue Mobility ,Strength,Tone Goals Three Impairment Diastasis Rectus (DR) above umbilicus Impairment DR above umbilicus: 1-3 is 1 /2 finger width (~0.75 cm), 4 above is 1.5 finger widths (~ 2.[address] above umbilics: 1-3 is 1. 5 finger widths. Below umbilics: 3 is closed, 2 is 2 finger widths, 1 is 2.5 finger widths. Short Term Goal (STG) Pt will be educated in self usp program for closure of DR. 01/20/23: Educated pt in use of towel to help with closure of DR during ex and transfers. Issued handout for review next appt of Get your Belly Back , self care for self monitoring of DR with abdominal strengthening. 02/03/23: Pt educated in self assessment for DR with discussion on depth as well as width. STG Duration 03/06/23 (02/03/23: MET GOAL) [facility] Goal (LTG) Pt will demonstrate reduced DR on palpation. 02/03/23: Above umbilicus 1-4 is 2.25-2 fingerwidths. Below Umbilicus 3 is closed, 2 is 2 fingerwidths, 1 is 2. 5 fingerwidths. LTG Duration 03/24/23 worse above umbilicus, same below umbilicus. Two Impairment Core weakness below umbilicus Impairment Pt not able to maintain core stability with doming noted with supine head lifts and leg raises. Short Term Goal (STG) Pt will demonstrate lower abdominal core tightening ability of drawing in without use of diaphragm to assist without doming on head lifts and leg lifts. 01/20/23: Initial teaching of TA tightening STG Duration 03/06/23 progressed 01/20/23 Guest Relations Officer Goal (LTG) Pt will improve sensation and neuromuscular awareness of her lower abdominal region, and improve core strength with minimal doming with use of upper extremities with functional activities or UE strengthening. LTG Duration 03/24/23 One Impairment Pt lacks an independent self care HEP. Short Term Goal (STG) Education in proper methods for transfer with coordination of breathing, proper vulvar/ genital care, and PF stretching ex's. 01/20/23: Issued education handout of proper vulvar/ genital care to be reviewed next appt. 02/03/23: Reviewed proper coordination of breathing with transfers for core pressure management. 03/10/23: Pt educated in PF stretch (Happy Baby Pose) STG Duration 03/06/23 (03/10/23: MET GOAL ) [facility] Goal (LTG) Pt will be independent in a self care HEP for PF relaxation/stretching/ strengthening, core stabilization ex's. 10/28/22: HEP: stretches: piriformis, hip AD's, ER's. 11/18/22: HEP: LE Roll in/out with ball/TBand. Issued Lev 2 TB. 03/10/29: HEP: Happy Baby Pose, Stretches: Hip AD, Piriformis, Lateral hip, Fig 4 . 03/17/23: I/S pt in wall leg slides/AB-AD/ LTG Duration 03/24/23 progressed 03/10/23 (need core stab) Assessment Summary Assessment Pt is a 32 yo female who is ~9 .5 months post- s/p C- section who had difficulty voiding due to PF tightness, but weakness of anterior PF muscles. She is no longer having difficulty with urinary voiding and has returned to exercise without urinary dysfunction. She also attends therapy for Diastasis Rectus (DR) rehabilitation which recently has shown some variable improvement as treatment focus was on core stabilization the prior visit. She is improving in core stability above her umbilicus, but is having a harder time engaging her lower transverse abdominal muscles, possibly due to lack of sensation and therefore physical biofeedback . Contraction of her TA is helped with self physical feedback and verbal cuing. Much time today was needed for TA contraction training and awareness below her umbilicus. Poor TA contraction noted inferior of umbilicus ~4 below. The pt will benefit from further skilled physical therapy to promote further anterior core strengthening to help decrease DR signs, improve neuromuscular awareness of her lower abdominal region to improve core stabilization, and to progress her HEP as symptoms improve. Physical Therapy Plan Frequency and Duration Frequency of Treatment 1x/Week Plan of Care Start Date 03/17/23 Plan of Care End Date 05/16/23 Therapeutic Interventions Therapeutic Interventions Home Exercise Program,Joint Mobilizations,Manual Therapy, Neuromuscular Re-education, Patient/Caregiver Education, Self-Care/Home Management,Soft Tissue Mobilization,Taping, Therapeutic Activities, Therapeutic Exercises Modalities Biofeedback,Cold Pack/Ice Massage,Hot Packs Other Therapeutic Interventions K-tape. Next Visit Focus/Plan Next Note Type Treatment Note Next Visit Plan Continue TA tightening in different positions (sidelie, 4pt, sitting, standing). Review HEP: Stretches: ER/ Adductors/IR, Happy Baby Pose. Next: Educate postural changes with , and progress strengthening for R pelvic rot /L upper trunk rot. Try hot/cold to abdomen to promote healing with caution due to pt has loss of sensation. POC focus: core & rotator ex's , STM of abdomen/scar, DR closure, improved anterior PF strength. Manual therapy: ?K-taping for DR, Ex's: abdominal rotators/hip mobility, TA strengthening, teach proper isolated Relaxation of PF especially if kegels given for pelvic stabilization. HEP possible needs: hip strengthening
--- NOTE | 2023-04-03 16:19 | PT.OTN ---
Current Diagnoses Muscle weakness (generalized) (04/03/23) Other female genital prolapse (04/03/23) Abnormal posture (04/03/23) Physical Therapy Treatment Note PT-OP-A Visit Information Start: 10/19/22 12:14 Freq: Status: Active Protocol: Document 04/03/23 15:08 LRN (Rec: 04/03/23 16:16 LRN [id number]) Out-Patient Physical Therapy Visit Information Visit Information Visit Type Treatment Note Visit Note Pt did not bring her vaginal electrode. Visit Start Time 15:08 Visit Stop Time 15:48 Total Visit Minutes 40 Visit Number Evaluation Information Evaluation Date 10/21/22 Precautions Precautions Per intake form: x 2, Depression not controlled by meds PT-OP-B Current Condition Start: 10/19/22 12:14 Freq: Status: Active Protocol: Document 10/21/22 14:40 LRN (Rec: 10/22/22 13:34 LRN [id number]) Current Condition History of Current Condition Onset Date 05/19/22 Current Complaints Not able to complete urination in 1 sitting, and concerns of DR. History of Current Condition Pt is a 32 yo female , C- section x 2. Pt had preclampsia with 2nd and preclampsia with her first . The pt c/o numbness in the area of the abdomen from umbilicus distally to pubic bone and transversely the distance between ASIS's. The pt also c /o not being able to void urine completely on sitting, but must stand to wiggle her hips before sitting a second time to complete her voiding. The pt is also concerned if her diastasis rectus (DR) is closing since she has been doing Utube ex's designed to close her DR that she reports worked following her first . Pt denies urinary leakage. Prior Treatments and Tests Exercise workouts on [employer] designed for post- exercise and DR closure. Treatment Goals Patient/Caregiver Goals Pt goal is to be able to urinary void without having to stand and adjust hips before completing void, and to have her DR assessed and for closure. 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 Current Functional Impairments (Reported) Functional Limitations- ADL's Lacks ability to complete urinary voiding in one sitting . Concerns regarding DR alexander. Personal Factors Other Personal Factors That May Effect 2 daughters - x 2. Therapy/Recovery Depression not controlled by meds. Spouse with intermittent deployment. Long working hours/week. PT-OP-C Subjective Start: 10/19/22 12:14 Freq: Status: Active Protocol: Document 04/03/23 15:08 LRN (Rec: 04/03/23 16:16 LRN [id number]) OP-PT Subjective Patient Comments Patient Comments Working on engaging [employer]. Did 'nt bring electrode. No change in sensation. Feels like she feels some pain from trying to exercise so much. PT-OP-I Pelvic Floor Start: 10/19/22 12:14 Freq: Status: Active Protocol: Document 01/20/23 14:16 LRN (Rec: 01/20/23 15:04 LRN [id number]) Pelvic Floor Assessment SEMG (uV) Baseline 3.2 Quick Contraction 15.7 10 Second Contraction 14.5 Recruitment Pattern Good Relaxation Fair Holding Fair Stability of Hold Fair SEMG Stability of Rest Fair Comments Pelvic Floor Comments Avg rest for Quick Contraction : 7.2uV's Avg rest for 10 Sec Contraction: 3.5 uV's. PT-OP-J Posture/Palpation/Skin Start: 10/19/22 12:14 Freq: Status: Active Protocol: Document 03/17/23 14:00 LRN (Rec: 03/17/23 16:58 LRN [id number]) Palpation Assessment Location Abdomen Palpation Location Abdomen Palpation Details Above umbilicus: 1 is 2.25 finger width (~2.0 cm), 2-3 above is 1.5 finger widths (~2 .5 cm), 4 above is 0.5 finger width. Below umbilicus: 1 is 2.5 finger width (~ 2.5 cm), 2 is 2 finger widths (2.8 cm), 3 closed. [ End ] PT-OP-K Range of Motion Start: 10/19/22 12:14 Freq: Status: Active Protocol: Document 10/28/22 14:35 LRN (Rec: 10/28/22 15:50 LRN [id number]) Hip Goniometric Range of Motion Hip Right Passive Testing Position Supine Straight Leg Raise 80 Abduction 30 Internal Rotation 50 External Rotation 50 Left Passive Testing Position Supine Straight Leg Raise 80 Abduction 30 Internal Rotation 30 External Rotation 50 PT-OP-M Strength Start: 10/19/22 12:14 Freq: Status: Active Protocol: Document 01/20/23 14:16 LRN (Rec: 01/20/23 15:04 LRN [id number]) Hip Strength Hip Manual Muscle Testing Right Flexion (L2) 5 Normal Abduction 5 Normal Adduction 5 Normal External Rotation 5 Normal Internal Rotation 5 Normal Left Flexion (L2) 5 Normal Abduction 5 Normal Adduction 5 Normal External Rotation 5 Normal Internal Rotation 5 Normal PT-OP-Q Treatments Start: 10/19/22 12:14 Freq: Status: Active Protocol: Document 04/03/23 15:08 LRN (Rec: 04/03/23 16:16 LRN [id number]) Therapeutic Exercises Supine Exercises TA tightening Supine Exercise Name TA tightening with transfers and supine head lifts. Reps/Minutes 5' Piriformis stretch Supine Exercise Name Piriformis stretch Side bilateral Reps/Minutes 60 SH x 1 each Fig 4 stretch Supine Exercise Name Fig 4 stretch, R>L (sequence: 3 breaths, 10 active ankle/hip ER range. Side bilateral Reps/Minutes 30+ SH, 2x R, 1x L Comments Extra time taken to determine max rochelle stretch position Sitting Exercises Hip AD stretch Sitting Exercise Name Hip AD stretch in sidesit on plinth Side left Reps/Minutes 2' Other Exercises Prone Plank KTC Other Exercise Name Prone Hands/Toes Plank (knee to wedge) Side bilateral Equipment Used Wedge Reps/Minutes 1x-rest x 3 right, x2 left, x 2 right Comments Extra time for training proper positioning and breathwork. Prone Plank Other Exercise Name Prone Plank on knees, cuing to keep hips aligned with trunk. Equipment Used Wedge. mirror Reps/Minutes 10 SH x 3 each Comments v cuing to TA and breathing during hold, and mirror for trunk posture Side Planks Other Exercise Name Side Plank over wedge on 1) knees, 2) feet Side bilateral Equipment Used Wedge Reps/Minutes 10 SH x 3 each Comments v cuing to TA and breathing during hold 4 pt TA tightening Other Exercise Name TA tightening Reps/Minutes 5' Comments phys cuing to area below umbilicus and to keep neutral spine Self-Care/Home Management Treatment Education Patient Education Home Exercise Program Activities Self-Care/Home Management Activities Issued & reviewed HEP: Phase 3 of Abdominal core power - maximized (Side plank, prone plank I/S on knees progressing to toes, and Prone Plank [place] - knee to wedge). PT-OP-T Assessment and Plan Start: 10/19/22 12:14 Freq: Status: Active Protocol: Document 04/03/23 15:08 LRN (Rec: 04/03/23 16:16 LRN [id number]) Physical Therapy Assessment Goals Three Impairment Diastasis Rectus (DR) above umbilicus Impairment DR above umbilicus: 1-3 is 1 /2 finger width (~0.75 cm), 4 above is 1.5 finger widths (~ 2.[address] cm). DR above umbilics: 1-3 is 1. 5 finger widths. Below umbilics: 3 is closed, 2 is 2 finger widths, 1 is 2.5 finger widths. Short Term Goal (STG) Pt will be educated in self shelter program for closure of DR. 01/20/23: Educated pt in use of towel to help with closure of DR during ex and transfers. Issued handout for review next appt of Get your Belly Back , self care for self monitoring of DR with abdominal strengthening. 02/03/23: Pt educated in self assessment for DR with discussion on depth as well as width. STG Duration 03/06/23 (02/03/23: MET GOAL) Hr Clerk Goal (LTG) Pt will demonstrate reduced DR on palpation. 02/03/23: Above umbilicus 1-4 is 2.25-2 fingerwidths. Below Umbilicus 3 is closed, 2 is 2 fingerwidths, 1 is 2. 5 fingerwidths. 04/03/23: Below umbilics: 3 is closed, 2 is 1 finger widths, 1 is 1.5 finger widths. LTG Duration 03/24/23 progressing 04/03/23 Two Impairment Core weakness below umbilicus Impairment Pt not able to maintain core stability with doming noted with supine head lifts and leg raises. Short Term Goal (STG) Pt will demonstrate lower abdominal core tightening ability of drawing in without use of diaphragm to assist without doming on head lifts and leg lifts. 01/20/23: Initial teaching of TA tightening 04/03/23: W/O doming with head lifts. STG Duration 03/06/23 progressed 04/03/23 Hr Clerk Goal (LTG) Pt will improve sensation and neuromuscular awareness of her lower abdominal region, and improve core strength with minimal doming with use of upper extremities with functional activities or UE strengthening. 04/03/23: Pt showing good awareness of ability to tighten TA (upper and lower) without having to use breathholding to hold TA. LTG Duration 03/24/23 One Impairment Pt lacks an independent self care HEP. Short Term Goal (STG) Education in proper methods for transfer with coordination of breathing, proper vulvar/ genital care, and PF stretching ex's. 01/20/23: Issued education handout of proper vulvar/ genital care to be reviewed next appt. 02/03/23: Reviewed proper coordination of breathing with transfers for core pressure management. 03/10/23: Pt educated in PF stretch (Happy Baby Pose) STG Duration 03/06/23 (03/10/23: MET GOAL ) Hr Clerk Goal (LTG) Pt will be independent in a self care HEP for PF relaxation/stretching/ strengthening, core stabilization ex's. 10/28/22: HEP: stretches: piriformis, hip AD's, ER's. 11/18/22: HEP: LE Roll in/out with ball/TBand. Issued Lev 2 TB. 03/10/29: HEP: Happy Baby Pose, Stretches: Hip AD, Piriformis, Lateral hip, Fig 4 . 03/17/23: I/S pt in wall leg slides/AB-AD. 04/03/23: Core stab HEP: Phase 3 of Abdominal core power - maximized (Side plank, prone plank I/S on knees progressing to toes, and Prone Plank [place] - knee to wedge). LTG Duration 03/24/23 progressed 04/03/23 Progress Towards Goals Progress Comments Progressed HEP and core stability with head lift (STG #2) Assessment Summary Assessment Improvement in lessening of DR separation below umbilicus with 4 pt TA ex. Pt able to transfer and head lift in supine without doming of abdomen, but pt appears to transfers at home in sit-up manner, stressing DR. Pt is able to perform side planks and partial plank with good TA /breath control. Weakness of UE's is limiting ability to do planks. Physical Therapy Plan Frequency and Duration Frequency of Treatment 1x/Week Plan of Care Start Date 03/17/23 Plan of Care End Date 05/16/23 Next Visit Focus/Plan Next Note Type Discharge Summary Next Visit Plan Next: ?Try hot/cold to abdomen to promote healing with caution due to pt has loss of sensation. Educate postural changes with . Assess for DC: 1) lower abdominal core tightening ability of draw in without use of diaphragm to assist without doming on leg lifts ( STG #2), 2) for minimal doming with use of upper extremities with functional activities or UE strengthening (LTG #2), 3) DR for more closure (LTG #3). HEP possible needs: hip strengthening Review if needed, strengthening for R pelvic rot /L upper trunk rot and TA tightening in different positions (standing, side and prone planks). POC: core & rotator ex's, STM of abdomen/scar, DR closure.
--- NOTE | 2023-04-10 16:30 | PT.OTN ---
Current Diagnoses Muscle weakness (generalized) (04/10/23) Other female genital prolapse (04/10/23) Abnormal posture (04/10/23) Physical Therapy Treatment Note PT-OP-A Visit Information Start: 10/19/22 12:14 Freq: Status: Active Protocol: Document 04/10/23 15:09 LRN (Rec: 04/10/23 16:21 LRN [id number]) Out-Patient Physical Therapy Visit Information Visit Information Visit Type Treatment Note Visit Start Time 15:09 Visit Stop Time 14:47 Total Visit Minutes 38 Visit Number PT-OP-B Current Condition Start: 10/19/22 12:14 Freq: Status: Active Protocol: Document 10/21/22 14:40 LRN (Rec: 10/22/22 13:34 LRN [id number]) Current Condition History of Current Condition Onset Date 05/19/22 Current Complaints Not able to complete urination in 1 sitting, and concerns of DR. History of Current Condition Pt is a 32 yo female , C- section x 2. Pt had preclampsia with 2nd and preclampsia with her first . The pt c/o numbness in the area of the abdomen from umbilicus distally to pubic bone and transversely the distance between ASIS's. The pt also c /o not being able to void urine completely on sitting, but must stand to wiggle her hips before sitting a second time to complete her voiding. The pt is also concerned if her diastasis rectus (DR) is closing since she has been doing Utube ex's designed to close her DR that she reports worked following her first . Pt denies urinary leakage. Prior Treatments and Tests Exercise workouts on [employer] designed for post- exercise and DR closure. Treatment Goals Patient/Caregiver Goals Pt goal is to be able to urinary void without having to stand and adjust hips before completing void, and to have her DR assessed and for closure. 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 Current Functional Impairments (Reported) Functional Limitations- ADL's Lacks ability to complete urinary voiding in one sitting . Concerns regarding DR separation. Personal Factors Other Personal Factors That May Effect 2 daughters - x 2. Therapy/Recovery Depression not controlled by meds. Spouse with intermittent deployment. Long working hours/week. PT-OP-C Subjective Start: 10/19/22 12:14 Freq: Status: Active Protocol: Document 04/10/23 15:09 LRN (Rec: 04/10/23 16:21 LRN [id number]) OP-PT Subjective Patient Comments Patient Comments States she was really sore after last session in her abdominals and took a few days to recover. Patient Questionnaires Pelvic Pain and Urgency/Frequency Patient Symptom Scale Pelvic Pain Score 2 PT-OP-I Pelvic Floor Start: 10/19/22 12:14 Freq: Status: Active Protocol: Document 04/10/23 15:09 LRN (Rec: 04/10/23 16:21 LRN [id number]) Pelvic Floor Assessment SEMG (uV) Baseline 2.8 Quick Contraction 20.1 10 Second Contraction 18.5 Recruitment Pattern Good Relaxation Fair Holding Fair Stability of Hold Fair SEMG Stability of Rest Good PT-OP-J Posture/Palpation/Skin Start: 10/19/22 12:14 Freq: Status: Active Protocol: Document 04/10/23 15:09 LRN (Rec: 04/10/23 16:25 LRN [id number]) Palpation Assessment Location Abdomen Palpation Location Abdomen Palpation Details Above umbilicus: 1 is 2 finger width (~2 cm), 2 above is 1/2 finger widths (~0.5 cm and very shallow), 3-4 is closed. Below umbilicus: 1 is 1.5 finger width (~ 2.5 cm and very shallow), 2-3 closed. [ End ] PT-OP-K Range of Motion Start: 10/19/22 12:14 Freq: Status: Active Protocol: Document 10/28/22 14:35 LRN (Rec: 10/28/22 15:50 LRN [id number]) Hip Goniometric Range of Motion Hip Right Passive Testing Position Supine Straight Leg Raise 80 Abduction 30 Internal Rotation 50 External Rotation 50 Left Passive Testing Position Supine Straight Leg Raise 80 Abduction 30 Internal Rotation 30 External Rotation 50 PT-OP-M Strength Start: 10/19/22 12:14 Freq: Status: Active Protocol: Document 01/20/23 14:16 LRN (Rec: 01/20/23 15:04 LRN [id number]) Hip Strength Hip Manual Muscle Testing Right Flexion (L2) 5 Normal Abduction 5 Normal Adduction 5 Normal External Rotation 5 Normal Internal Rotation 5 Normal Left Flexion (L2) 5 Normal Abduction 5 Normal Adduction 5 Normal External Rotation 5 Normal Internal Rotation 5 Normal PT-OP-Q Treatments Start: 10/19/22 12:14 Freq: Status: Active Protocol: Document 04/10/23 15:09 LRN (Rec: 04/10/23 16:21 LRN [id number]) Therapeutic Exercises Supine Exercises PF Long Hold contractions Supine Exercise Name 10 sec Long hold contractions Reps/Minutes 10x Comments Extra time to coordinate contractions w/Telekinesis program PF Quick Contractions Supine Exercise Name 1 sec PF contractions Reps/Minutes 10x Comments Extra time to coordinate contractions w/Telekinesis program TA tightening Supine Exercise Name TA tightening with supine head and leg lifts. Reps/Minutes 6' Hands/knees press-rotation Supine Exercise Name Hands/knees press training Reps/Minutes 5' Self-Care/Home Management Treatment Education Other Education Pt education and discussion of changes with posture during and pt primary are of change to progress towards is increased lordosis. Reviewed HEP focus areas ( primarily TA/core strength, posture). Activities Self-Care/Home Management Activities Issued handout of postural changes with . Review HEP focus strengthening for pelvic rot/upper trunk rot, TA tightening, PF strengthening if start ex routines. PT-OP-R Modalities Start: 10/19/22 12:14 Freq: Status: Active Protocol: Document 04/10/23 15:09 LRN (Rec: 04/10/23 16:27 LRN [id number]) Hot Pack/Cold Pack Treatment Cold Pack Location lower abdomen Patient Position Hooklying Treatment Duration (minutes) 3 Patient Tolerance Good Comments 1' x 3, alternating with hot pack Used during Head lift ex's using Telekinesis program Hot Pack Location lower abdomen Patient Position Hooklying Treatment Duration (minutes) 9 Patient Tolerance Good Comments 3' x 3, alternating with cold pack Used during Head lift ex's using Telekinesis program PT-OP-T Assessment and Plan Start: 10/19/22 12:14 Freq: Status: Active Protocol: Document 04/10/23 15:09 LRN (Rec: 04/10/23 16:21 LRN [id number]) Physical Therapy Assessment Goals Four Impairment Pt not able to urinary void completely on first sitting. Impairment After initial voiding in sitting, pt has to stand and adjust hips before being able to completely void. Short Term Goal (STG) Improve abdominal soft tissue mobility and relaxation of PF for urinary voiding on first sit 50% of time during the week. STG Duration 03/06/23 (02/03/23: MET GOAL) Head Shipper Goal (LTG) Pt will be able to urinary void without having to stand and adjust hips to complete voiding. 11/18/22: Reduced symptoms, with onset of new symptoms of 2nd void close in time to 1st void. LTG Duration 03/24/23 (02/03/23: MET GOAL) Three Impairment Diastasis Rectus (DR) above umbilicus Impairment DR above umbilicus: 1-3 is 1 /2 finger width (~0.75 cm), 4 above is 1.5 finger widths (~ 2.[address] cm). DR above umbilics: 1-3 is 1. 5 finger widths. Below umbilics: 3 is closed, 2 is 2 finger widths, 1 is 2.5 finger widths. Short Term Goal (STG) Pt will be educated in self fpc program for closure of DR. 01/20/23: Educated pt in use of towel to help with closure of DR during ex and transfers. Issued handout for review next appt of Get your Belly Back , self care for self monitoring of DR with abdominal strengthening. 02/03/23: Pt educated in self assessment for DR with discussion on depth as well as width. STG Duration 03/06/23 (02/03/23: MET GOAL) Head Shipper Goal (LTG) Pt will demonstrate reduced DR on palpation. 02/03/23: Above umbilicus 1-4 is 2.25-2 fingerwidths. Below Umbilicus 3 is closed, 2 is 2 fingerwidths, 1 is 2. 5 fingerwidths. 04/03/23: Below umbilics: 3 is closed, 2 is 1 finger widths, 1 is 1.5 finger widths. 04/10/23: Diastasis: Above umbilicus: 1 2 finger widths. 2 1/2 finger width/very shallow. Below umbilicus: 1 1.5 fingerwidths/very shallow (2 & 3 closed). LTG Duration 03/24/23 (04/10/23: MET GOAL ) Two Impairment Core weakness below umbilicus Impairment Pt not able to maintain core stability with doming noted with supine head lifts and leg raises. Short Term Goal (STG) Pt will demonstrate lower abdominal core tightening ability of drawing in without use of diaphragm to assist without doming on head lifts and leg lifts. 01/20/23: Initial teaching of TA tightening 04/03/23: W/O doming with head lifts. 04/03/23: Head lifts and arm lifts w/o doming of abdomen. STG Duration 03/06/23 (04/10/23: GOAL MET) Head Shipper Goal (LTG) Pt will improve sensation and neuromuscular awareness of her lower abdominal region, and improve core strength with minimal doming with use of upper extremities with functional activities or UE strengthening. 04/03/23: Pt showing good awareness of ability to tighten TA (upper and lower) without having to use breathholding to hold TA. LTG Duration 03/24/23 (04/10/23: Partially met goal) One Impairment Pt lacks an independent self care HEP. Short Term Goal (STG) Education in proper methods for transfer with coordination of breathing, proper vulvar/ genital care, and PF stretching ex's. 01/20/23: Issued education handout of proper vulvar/ genital care to be reviewed next appt. 02/03/23: Reviewed proper coordination of breathing with transfers for core pressure management. 03/10/23: Pt educated in PF stretch (Happy Baby Pose) STG Duration 03/06/23 (03/10/23: MET GOAL ) Head Shipper Goal (LTG) Pt will be independent in a self care HEP for PF relaxation/stretching/ strengthening, core stabilization ex's. 10/28/22: HEP: stretches: piriformis, hip AD's, ER's. 11/18/22: HEP: LE Roll in/out with ball/TBand. Issued Lev 2 TB. 03/10/29: HEP: Happy Baby Pose, Stretches: Hip AD, Piriformis, Lateral hip, Fig 4 . 03/17/23: I/S pt in wall leg slides/AB-AD. 04/03/23: Core stab HEP: Phase 3 of Abdominal core power - maximized (Side plank, prone plank I/S on knees progressing to toes, and Prone Plank [place] - knee to wedge). LTG Duration 03/24/23 (04/10/23: MET GOAL ) Assessment Summary Assessment Pt has met most of her goals and is ready to be placed onto a self care HEP. She partially met LTG #2. She did not regain sensation of her abdominal region, but was able to gain neuromuscular awareness of her lower abdominal region and improve core stength with minimal abdominal doming with UE movements and core strengthening. Her Diastasis Rectus has reduced quite nicely and shows separation with a head lift primarily in a 1 diameter of umbilicus. Her PF strength has improved overall and the pt is no longer experiencing urinary difficulties. The pt has shown overall good understanding of her HEP and is ready to be discharged to her HEP. Physical Therapy Plan Discharge Physical Therapy Discharge Comments Goals met except for LTG #2. Thank you for your referral.
== END 2023-04-12 10:05 | disposition home or self-care (01) ==
LOC: PHYS 15:00
PROVIDERS: PCP Family Medicine; Referring Provider Obstetrics & Gynecology; Visit Provider Obstetrics & Gynecology
DX: N81.89 Other female genital prolapse (principal); M62.81 Muscle weakness (generalized); R29.3 Abnormal posture
CPT/HCPCS: 97110; 97112; 97140; 97162; 97535

== ENCOUNTER → 2023-12-21 15:44 | Outpatient (CLI) | payer OTHER, SELFPAY ==
[2022-05-26 03:15] VITALS: BMI 30.4
--- NOTE | 2023-12-21 15:45 | DI.RAD.S_ITS ---
PROCEDURE: XR WRIST RT MIN 3V INDICATIONS: Right wrist pain TECHNIQUE: 4 views of the wrist were acquired. COMPARISON: None. FINDINGS: Bones: No fractures or dislocations. No suspicious bony lesions. Soft tissues: No suspicious soft tissue calcifications. IMPRESSION: No acute bony abnormality. Dictated by: Nemesio Sebastian M.D. on 12/21/2023 at 16:54 Approved by: Nemesio Sebastian M.D. on 12/21/2023 at 16:55
== END ==
PROVIDERS: PCP Family Medicine; Referring Provider Nurse Practitioner Family; Visit Provider Nurse Practitioner Family
DX: M25.531 Pain in right wrist (principal)
CPT/HCPCS: 73110

== ENCOUNTER → 2024-09-20 11:40 | Outpatient (CLI) | payer OTHER, SELFPAY ==
[2022-05-26 03:15] VITALS: BMI 30.4
[2024-09-20 13:31] LABS: Influenza A - CEPHEID Flu A NEGATIVE (NEGATIVE); Influenza B - CEPHEID Flu B NEGATIVE (NEGATIVE); Respiratory Syncytial Virus Negative (Negative)
[2024-09-20 13:41] LABS: COVID-19 CEPHEID 4-PLEX PCR Negative (Negative)
== END ==
PROVIDERS: PCP Family Medicine; Referring Provider Physician Assistant; Visit Provider Physician Assistant
DX: R05.1 Acute cough (principal); J02.9 Acute pharyngitis, unspecified
CPT/HCPCS: 0241U

== ENCOUNTER 2024-09-21 07:12 | Inpatient (IN) | payer OTHER, SELFPAY ==
[2022-05-26 03:15] VITALS: BMI 30.4
[2024-09-21] VITALS (9 sets, daily range): BP systolic 110–171; BP diastolic 67–103; PULSE 72–106; RESP 15–20; TEMP 36.4–37.2; O2SAT 96–100; BMI 27.3
--- NOTE | 2024-09-21 09:21 | ED.URI ---
HPI - URI/Sore Throat General Chief Complaint: Upper Respiratory Symptoms Stated Complaint: sore throat, trouble swallowing dx strep yesterday Time Seen by Provider: 09/21/24 08:40 Source: patient Mode of arrival: Ambulatory History of Present Illness HPI Narrative: Patient is a healthy 34-year-old female who presents to 4 days of sore throat. She was diagnosed with strep yesterday started on azithromycin due to amoxicillin allergy when still having pretty significant pain and neck pain. She states she took Tylenol Motrin does not help at all. Not eating or drinking. She has a muffled voice but managing her secretions. She was fever and body aches. Significant pain on the right side, decreased range of motion in her neck. Related Data Previous Rx's Medication Instructions Recorded sumatriptan succinate 50 mg tablet 50 mg PO Q2-4H PRN migraine 01/15/24 (Imitrex) headache #20 tabs valacyclovir 500 mg tablet 500 mg PO BID #30 tabs 01/15/24 buspirone 7.5 mg tablet 7.5 mg PO BID PRN anxiety/panic 06/25/24 #30 tabs propranolol 40 mg tablet 40 mg PO BID PRN anxiety #30 tabs 06/25/24 sertraline 25 mg tablet 25 mg PO DAILY #90 tabs 06/25/24 progesterone micronized 200 mg 200 - 600 mg (1 - 3 x 200 mg) PO 08/22/24 capsule BEDTIME #90 caps azithromycin 250 mg tablet See Rx Instructions PO .COMPLEX #6 09/20/24 tabs Allergies Allergy/AdvReac Type Severity Reaction Status Date / Time amoxicillin [AMOXICILLIN] Allergy Intermediate RASH Verified 09/21/24 07:27 Penicillins [PENICILLINS] Allergy Intermediate RASH Verified 09/21/24 07:27 cat dander AdvReac Intermediate Verified 09/21/24 07:27 cefaclor [From Ceclor] AdvReac Intermediate Hives Verified 09/21/24 07:27 house dust mite AdvReac Intermediate Verified 09/21/24 07:27 Patient History Medical History Allergic rhinitis Anxiety Asthma Bilateral tinnitus Chromhidrosis Gestational hypertension affecting second Menorrhagia with regular cycle Migraine Palpitations Plantar wart depression associated with second Preeclampsia Preeclampsia in period Psoriasis Recurrent cold sores Surgical History H/O wisdom tooth extraction H/O: History of removal of skin mole History of tonsillectomy Family History Mother Arthritis Endometriosis Hyperlipidemia Hypertension Age related osteoporosis Grandfather Hyperlipidemia Hypertension Stroke Grandmother Hyperlipidemia Hypertension Stroke Macular degeneration Father Melanoma Grandfather Leukemia Grandfather Laryngeal cancer Social History marital status: number of children: 1 household members: spouse and children lives independently: Yes housing: house pets and animals: Yes (1 dog) education level: college occupational status: employed current occupational exposures/hazards: No special yokasta needs: No travel history: over 6 months ago seatbelt use: always helmet use: Yes water heater temp set < 120 deg: Yes working smoke detector in home: Yes fire extinguisher in home: Yes carbon monox detector in home: Yes firearms in home: Yes firearms unloaded and locked: Yes do you feel safe at home: Yes Smoking Status: Never smoker second hand exposure: No alcohol intake: current substance use type: does not use during the past year weight has: remained stable well-balanced diet: daily or most days daily servings fruits/ve-4 caffeine: Yes Type(s) of exercise: regular exercise, weight lifting, yoga and additional Smoking Status: Never smoker Exam Initial Vital Signs Initial Vital Signs: Vital Signs Temperature 98.9 F 09/21/24 07:22 Pulse Rate 106 H 09/21/24 07:22 Respiratory Rate 15 09/21/24 07:22 Blood Pressure 171/103 H 09/21/24 07:22 Pulse Oximetry 99 09/21/24 07:22 Oxygen Delivery Method Room Air 09/21/24 07:22 GENERAL: Alert 34-year-old female appears to not feel well HEENT: Head atraumatic,EOMI, pupils reactive, face symmetric, moist mucous membranes EARS: Tympanic membranes visualized, no erythema or bulging, no hemotympanum PHARYNX: No uvula swelling or deviation. Erythema and enlarged tonsil on the right side no exudate very difficult to open mouth muffled voice. Cervical lymphadenopathy present on the right side NECK: Significant decreased range of motion in flexion and extension tender posterior neck to very light palpation CARDIOVASCULAR: Regular rate and rhythm without murmurs, rubs or gallops. RESPIRATORY: Breath sounds equal bilaterally, no wheezes rales or rhonchi. NOT tripoding, managing secretions ABDOMEN: Soft, nontender. Normoactive bowel sounds all 4 quadrants. No guarding or rebound. EXTREMITIES: Normal range of motion, no clubbing or edema. Neurovascularly intact NEUROLOGICAL: Alert and oriented x4.Normal gait and speech. Cranial nerves II through XII grossly intact. SKIN: Warm, dry, no laceration, no petechiae, no rashes or lesions. Course Orders Ordered: ED Orders 09/21/24 10:42 CBC Auto Diff [Complete Blood Count AUTO DIFF] Stat CMP [Comprehensive Metabolic Panel] Stat Lactate (Lactic Acid) Stat 09/21/24 11:30 Blood Culture Stat Acetaminophen (Acetaminophen 325 Mg Tablet) 650 mg PO Q6H PRN PRN Reason: Fever/Mild Pain (1-3) Buspirone HCl (Buspirone 5 Mg Tablet) 7.5 mg PO BID PRN PRN Reason: anxiety/panic Dexamethasone (Dexamethasone 4 Mg/Ml Vial) 4 mg IV Q6HR LEO Last Admin: 09/21/24 18:18 Dose: 4 mg Documented By: MS Diphenhydramine HCl (Diphenhydramine 50 Mg/Ml Vial) 25 mg IV BEDTIME PRN PRN Reason: Insomnia Diphenhydramine HCl (Diphenhydramine 50 Mg/Ml Vial) 25 mg IV Q6HR PRN PRN Reason: Itching Last Admin: 09/21/24 17:45 Dose: 25 mg Documented By: MS Hydromorphone HCl (Hydromorphone 0.5 Mg Inj) 1 mg IV Q2H PRN PRN Reason: Pain, Severe (7-10) Last Admin: 09/21/24 17:45 Dose: 1 mg Documented By: MS Hydromorphone HCl (Hydromorphone 0.5 Mg Inj) 0.5 mg IV Q2H PRN PRN Reason: Pain, Moderate (4-6) Last Admin: 09/21/24 18:38 Dose: 0.5 mg Documented By: MS Sodium Chloride (Normal Saline 0.9%) 1,000 mls @ 100 mls/hr IV CONT LEO Last Infusion: 09/21/24 16:41 Dose: Infused Documented By: Infusion: 09/21/24 15:13 Dose: 0 mls/hr Documented By: Admin: 09/21/24 14:16 Dose: 100 mls/hr Documented By: SB Dextrose/Sodium Chloride (Dextrose 5%-0.45% Ns) 1,000 mls @ 100 mls/hr IV CONT [facility] [place] Last Admin: 09/21/24 16:41 Dose: 100 mls/hr Documented By: MS Clindamycin Phosphate (Cleocin) 600 mg in 50 mls @ 50 mls/hr IV Q6H LEO Last Admin: 09/21/24 18:19 Dose: 50 mls/hr Documented By: MS Lidocaine HCl (Lidocaine Viscous 2% 15 Ml Solution) 15 ml PO Q4H PRN PRN Reason: Sore Throat Naloxone HCl (Naloxone 0.4 Mg/Ml Vial) 0.2 mg IV Q2MIN PRN PRN Reason: Opiate Reversal Ondansetron HCl (Ondansetron 4 Mg/2 Ml Inj) 4 mg IV Q6HR PRN PRN Reason: Nausea And Vomiting Propranolol HCl (Propranolol 10 Mg Tablet) 40 mg PO BID PRN PRN Reason: anxiety Sertraline HCl (Sertraline 50 Mg Tablet) 25 mg PO DAILY [facility] Sumatriptan Succinate (Sumatriptan 25 Mg Tablet) 50 mg PO Q2H PRN PRN Reason: migraine headache Discontinued Medications Dexamethasone (Dexamethasone 10 Mg/Ml Vial) 10 mg IV NOW ONE Stop: 09/21/24 09:22 Last Admin: 09/21/24 10:06 Dose: 10 mg Documented By: SPF Hydromorphone HCl (Hydromorphone 0.5 Mg Inj) 1 mg IV NOW ONE Stop: 09/21/24 15:23 Last Admin: 09/21/24 15:30 Dose: 1 mg Documented By: MS Hydromorphone HCl (Hydromorphone 0.5 Mg Inj) 0.5 mg IV Q2H PRN PRN Reason: Pain, Severe (7-10) Last Admin: 09/21/24 16:40 Dose: 0.5 mg Documented By: MS Sodium Chloride (Normal Saline 0.9%) 1,000 mls @ 1,000 mls/hr IV BOLUS ONE Stop: 09/21/24 10:20 Last Infusion: 09/21/24 12:53 Dose: Infused Documented By: Admin: 09/21/24 10:06 Dose: 1,000 mls/hr Documented By: SPF Clindamycin Phosphate (Cleocin) 600 mg in 50 mls @ 50 mls/hr IV NOW ONE Stop: 09/21/24 10:21 Last Infusion: 09/21/24 13:37 Dose: Infused Documented By: Admin: 09/21/24 12:30 Dose: 50 mls/hr Documented By: SPF Acetaminophen (Ofirmev) 1,000 mg in 100 mls @ 400 mls/hr IV NOW ONE Stop: 09/21/24 09:37 Last Infusion: 09/21/24 10:25 Dose: Infused Documented By: Admin: 09/21/24 10:07 Dose: 400 mls/hr Documented By: SPF Influenza Virus Vaccine (Influenza Vaccine Qiv 0.5 Ml Syringe) 0.5 ml IM .ONCE ONE Stop: 09/21/24 15:52 Last Admin: 09/21/24 17:23 Dose: 0.5 ml Documented By: Ketorolac Tromethamine (Ketorolac 30 Mg/Ml Vial) 15 mg IV NOW ONE Stop: 09/21/24 12:54 Last Admin: 09/21/24 13:41 Dose: 15 mg Documented By: SPF Morphine Sulfate (Morphine 2 Mg/Ml Inj) 2 mg IV NOW ONE Stop: 09/21/24 14:56 Last Admin: 09/21/24 15:06 Dose: 2 mg Documented By: SPF Ondansetron HCl (Ondansetron 4 Mg/2 Ml Inj) 4 mg IV NOW ONE Stop: 09/21/24 13:15 Last Admin: 09/21/24 13:41 Dose: 4 mg Documented By: SPF Ondansetron HCl (Ondansetron 4 Mg/2 Ml Inj) 4 mg IV NOW ONE Stop: 09/21/24 15:22 Last Admin: 09/21/24 15:29 Dose: 4 mg Documented By: Vital Signs Vital signs: Vital Signs - 8 hr 09/21/24 13:37 Pulse Rate 92 H Pulse Oximetry 98 MDM - URI/Sore Throat Lab Data 09/21/24 10:42 09/21/24 10:42 Labs: Lab Results 09/21/24 Range/Units 10:42 WBC 11.3 H (4.5-11.0) X10^3/uL RBC 4.03 (4.0-5.2) X10^6/uL Hgb 13.6 (12.0-16.0) g/dL Hct 39.8 (36-46) % MCV 98.8 (80-100) fL MCH 33.8 (26-34) PG MCHC 34.2 (30-36) % RDW 12.6 (11.6-14.8) % Plt Count 300 (150-400) X10^3/uL Neut % (Auto) 78.2 H (50-75) % Lymph % (Auto) 9.8 L (25-40) % Jewell % (Auto) 9.3 (3-14) % Eos % (Auto) 2.3 (2-4) % Baso % (Auto) 0.4 (0-2) % Neut # (Auto) 8900 H (3010-2076) /uL Lymph # (Auto) 1100 (2527-4775) /uL Jewell # (Auto) 1100 H (0-900) /uL Eos # (Auto) 300 (0-450) /uL Baso # (Auto) 0 (0-100) /uL Sodium 137 (137-145) mmol/L Potassium 4.1 (3.4-5.1) mmol/L Chloride 104 (98-107) mmol/L Carbon Dioxide 23 (22-32) mmol/L BUN 9 (7-17) mg/dL Creatinine 0.71 (0.52-1.04) mg/dL Estimated GFR > 60 (>60) mL/min BUN/Creatinine Ratio 12.7 (6-22) Glucose 84 (70-100) mg/dL Lactate 1.2 (0.7-2.1) mmol/L Calcium 9.0 (8.4-10.2) mg/dL Total Bilirubin 0.6 (0.2-1.3) mg/dL AST 44 H (14-36) IU/L ALT 44 H (<35) IU/L Alkaline Phosphatase 99 (38-126) U/L Total Protein 7.7 (6.3-8.2) g/dL Albumin 4.3 (3.5-5.0) g/dL Globulin 3.4 (1.7-4.1) g/dL Albumin/Globulin Ratio 1.3 (1.0-2.8) Point of Care Testing Test Results Negative Imaging Data CT soft tissue neck: Radiologist's Impression: PROCEDURE: CT SOFT TISSUE NECK W CON INDICATIONS: +strep Retropharyngeal abscess? TECHNIQUE: After the administration of intravenous contrast, 3.0 mm axial sections acquired from the sella to the aortic arch. Additional oblique axial 3.0 mm sections acquired through the pharynx. 3 mm thick coronal and sagittal reformats were generated. For radiation dose reduction, the following was used: automated exposure control. COMPARISON: None. FINDINGS: Image quality: There is artifact associated with the metallic hardware. Artifact from the metallic hardware is reduced by metal reconstruction algorithm. Lymph nodes: Generalized prominence of cervical lymph nodes can be seen on both sides. The largest on the right measures 10 x 15 mm at level 2A. The largest solitary lymph node on the left is also seen at level 2A measuring 6 x 9 mm. Vessels: Visualized vasculature appears patent. Neck spaces: Generalized abnormal fluid can be seen within the right peritonsillar region, extending down into the right piriform sinus. No loculated abscess is seen. There is abnormal fluid seen within the prevertebral space (danger space). Glands: The parotid and submandibular glands appear normal. Thyroid gland demonstrates no significant abnormality. Miscellaneous: Visualized brain and orbits appear normal. Lung apices appear clear. Superficial soft tissues appear normal. Bones: No suspicious bony lesions. Visualized sinuses and mastoids appear unremarkable. IMPRESSION: Abnormal fluid is seen within the prevertebral space (danger space). - Urgent ENT consultation is recommended. There is abnormal fluid also seen within the right tonsillar region, extending down into the right piriform sinus, yet without a well loculated abscess. Borderline enlarged cervical lymph nodes can be seen on both sides, right worse than left, which are regarded to be reactive lymph nodes in a patient of this age. Note: Findings and recommendations discussed by telephone with Dr. Posada at 12:19 p.m. [place] time on September 21, 2024. Dictated by: Leoncio Dennis M.D. on 09/21/2024 at 11:14 MDM Narrative Medical decision making narrative: MDM CC: Sore throat Complicating co-morbidities: Healthy Differential considered: Retropharyngeal abscess peritonsillar abscess Exam documented above, pertinent findings include: Patient does have muffled voice difficulty opening mouth due to pain significant decreased range of motion in her neck Lab Test results independently reviewed as above. Pertinent findings: WBC 11.3, lactate 1.2, Creatinine 0.7 electrolytes within normal limits Blood cultures pending Imaging studies independently reviewed: CT concerning for deep neck soft tissue infection there is fluid seen within the paravertebral space. Also fluid in right tonsillar region with out localized abscess. Also borderline enlarged cervical lymph nodes on both sides Consultations: 1320 Dr. Ibrahim, ENT, updated patient's symptoms test results he has actually read the CT himself. At this time there is no surgical intervention but definitely needs IV antibiotics and steroids. He will be in to see patient. Recommends NPO at midnight just in case also recommends dexamethasone 6 mg q.6 or 8 mg Q 8. Along with IV antibiotics 1340 Dr. Arguelles accepts patient Treatments: Clindamycin, dexamethasone 10, IV fluids, Tylenol Re-evaluations: Patient does appear a little bit more comfortable but still is quite tender a little bit of swelling noted on the neck. She was able to tolerate p.o. fluids she is ambulatory in the ED Discussion: 34-year-old female presenting today with sore throat. She does appear quite tender on exam over her cervical vertebra in along her right cervical muscle she has some lymphadenopathy as well. No uvula swelling she does have a mild muffled voice. CT shows concerning for perivertebral edema and deep neck soft tissue infection. She was managing her own secretions tolerating p.o. fluids. ENT recommends IV antibiotics and steroids with admission. No obvious surgical site at this time. Discharge Plan Departure Patient Disposition: Admitted As Inpatient Clinical Impression: Neck infection, Strep pharyngitis Admit Date/Time: 09/21/24 13:41 Admit Provider: Chris Arguelles V
[2024-09-21] MEDS: SODIUM CHLORIDE 0.9% 1,000 ML 1000 ML IV (10:06)
[2024-09-21] MEDS: DEXAMETHASONE 10 MG/ML VIAL IV (10:06)
[2024-09-21] MEDS: ACETAMINOPHEN IV 1,000 MG/100 ML VIAL 400 MG IV (10:07)
[2024-09-21 10:54] LABS: Add Manual Diff / Slide Review NO; Basophils Absolute Auto 0 /uL (0-100); Basophils Percent Auto 0.4 % (0-2); Eosinophils Absolute Auto 300 /uL (0-450); Eosinophils Percent Auto 2.3 % (2-4); Hematocrit 39.8 % (36-46); Hemoglobin 13.6 g/dL (12.0-16.0); Lymphocytes Absolute Auto 1100 /uL (1100-4500); Lymphocytes Percent Auto 9.8 % (25-40); Mean Corpuscular HGB Conc 34.2 % (30-36); Mean Corpuscular Hemoglobin 33.8 PG (26-34); Mean Corpuscular Volume 98.8 fL (80-100); Monocytes Absolute Auto 1100 /uL (0-900); Monocytes Percent Auto 9.3 % (3-14); Neutrophils Absolute Auto 8900 /uL (1500-7000); Neutrophils Percent Auto 78.2 % (50-75); Platelet Count 300 X10^3/uL (150-400); Red Blood Cell Count 4.03 X10^6/uL (4.0-5.2); Red Cell Distribution Width 12.6 % (11.6-14.8); White Blood Cell Count 11.3 X10^3/uL (4.5-11.0)
[2024-09-21 11:07] LABS: Alanine Aminotransferase 44 IU/L (<35); Albumin 4.3 g/dL (3.5-5.0); Albumin Globulin Ratio 1.3 (1.0-2.8); Alkaline Phosphatase 99 U/L (38-126); Aspartate Aminotransferase 44 IU/L (14-36); BUN Creatinine Ratio 12.7 (6-22); Bilirubin Total 0.6 mg/dL (0.2-1.3); Blood Urea Nitrogen 9 mg/dL (7-17); Carbon Dioxide 23 mmol/L (22-32); Chloride 104 mmol/L (98-107); Estimated Glomerular Filt Rate > 60 mL/min (>60); Globulin 3.4 g/dL (1.7-4.1); Glucose 84 mg/dL (70-100); HEMOLYSIS < 15 (0-50); Potassium 4.1 mmol/L (3.4-5.1); Sodium 137 mmol/L (137-145); Total Protein 7.7 g/dL (6.3-8.2)
[2024-09-21 11:08] LABS: Lactate (Lactic Acid) 1.2 mmol/L (0.7-2.1)
[2024-09-21] MEDS: CLINDAMYCIN 600 MG/50 ML PIGGYBACK 50 MG IV ×3 (12:30→23:35)
[2024-09-21] MEDS: KETOROLAC 30 MG/ML VIAL 15 MG IV (13:41)
[2024-09-21] MEDS: ONDANSETRON 4 MG/2 ML INJ IV ×3 (13:41→20:56)
[2024-09-21] MEDS: SODIUM CHLORIDE 0.9% 1,000 ML 100 ML IV (14:16)
[2024-09-21] MEDS: MORPHINE 2 MG/ML INJ IV (15:06)
[2024-09-21] MEDS: HYDROMORPHONE 0.5 MG INJ 1 MG IV ×3 (15:30→20:56)
--- NOTE | 2024-09-21 16:07 | PM.HP.1 ---
History of Present Illness History of Present Illness Date Patient Seen: 09/21/24 Time Patient Seen: 15:45 Chief complaint: sore throat, trouble swallowing dx strep yesterday Narrative: 34-year-old woman under the primary care of Dr. Jennifer Shahid reports 3 days of sore throat with right ear and neck pain, fever to 101?, and nonproductive cough. She was seen in walk-in clinic yesterday and tested positive for strep and started on azithromycin. She had increasing pain and discomfort in the right neck and return to the emergency department where she was found to have a prevertebral fluid collection on CT imaging without loculated abscess. She was seen by Dr. Rocha of ENT in the emergency department, given clindamycin and dexamethasone and admitted for medical management and possible surgery if worsening. She states she is able to swallow liquids, has considerable nausea and pain, otherwise without active issues. She has 2 and 4-year-old children who are healthy without illness. She has a history of preeclampsia without complication and anxiety controlled with sertraline with occasional buspirone as needed for panic attack, currently controlled, but otherwise no active issues. REPLACED BY [facility] Medical History Allergic rhinitis Anxiety Asthma Bilateral tinnitus Chromhidrosis Gestational hypertension affecting second Menorrhagia with regular cycle Migraine Palpitations Plantar wart depression associated with second Preeclampsia Preeclampsia in period Psoriasis Recurrent cold sores Surgical History H/O wisdom tooth extraction H/O: History of removal of skin mole History of tonsillectomy Family History Mother Arthritis Endometriosis Hyperlipidemia Hypertension Age related osteoporosis Grandfather Hyperlipidemia Hypertension Stroke Grandmother Hyperlipidemia Hypertension Stroke Macular degeneration Father Melanoma Grandfather Leukemia Grandfather Laryngeal cancer Social History marital status: number of children: 1 household members: spouse and children lives independently: Yes housing: house pets and animals: Yes (1 dog) education level: college occupational status: employed current occupational exposures/hazards: No special yokasta needs: No travel history: over 6 months ago seatbelt use: always helmet use: Yes water heater temp set < 120 deg: Yes working smoke detector in home: Yes fire extinguisher in home: Yes carbon monox detector in home: Yes firearms in home: Yes firearms unloaded and locked: Yes do you feel safe at home: Yes Smoking Status: Never smoker second hand exposure: No alcohol intake: current substance use type: does not use during the past year weight has: remained stable well-balanced diet: daily or most days daily servings fruits/ve-4 caffeine: Yes Type(s) of exercise: regular exercise, weight lifting, yoga and additional Meds Home Medications and Allergies Home Medications Medication Instructions Recorded Confirmed Type sumatriptan succinate 50 mg tablet 50 mg PO Q2-4H PRN migraine 01/15/24 09/21/24 Rx (Imitrex) headache #20 tabs valacyclovir 500 mg tablet 500 mg PO BID #30 tabs 01/15/24 09/20/24 Rx buspirone 7.5 mg tablet 7.5 mg PO BID PRN anxiety/panic 06/25/24 09/21/24 Rx #30 tabs propranolol 40 mg tablet 40 mg PO BID PRN anxiety #30 tabs 06/25/24 09/21/24 Rx sertraline 25 mg tablet 25 mg PO DAILY #90 tabs 06/25/24 09/21/24 Rx progesterone micronized 200 mg 200 - 600 mg (1 - 3 x 200 mg) PO 08/22/24 09/21/24 Rx capsule BEDTIME #90 caps azithromycin 250 mg tablet See Rx Instructions PO .COMPLEX #6 09/20/24 09/21/24 Rx tabs Allergies Allergy/AdvReac Type Severity Reaction Status Date / Time amoxicillin [AMOXICILLIN] Allergy Intermediate RASH Verified 09/21/24 07:27 Penicillins [PENICILLINS] Allergy Intermediate RASH Verified 09/21/24 07:27 cat dander AdvReac Intermediate Verified 09/21/24 07:27 cefaclor [From Ceclor] AdvReac Intermediate Hives Verified 09/21/24 07:27 house dust mite AdvReac Intermediate Verified 09/21/24 07:27 Review of Systems Review of Systems ROS: Yes All systems reviewed with the patient and are negative except as otherwise documented Exam Vital Signs (past 8 hours): - 09/21/24 10:18 09/21/24 13:37 09/21/24 13:46 Pulse Rate 83 92 H 92 H Respiratory Rate 20 Blood Pressure 155/90 H Pulse Oximetry 100 98 96 Oxygen Delivery Method Room Air Room Air 09/21/24 13:47 09/21/24 13:47 09/21/24 14:00 Pulse Rate 88 Respiratory Rate Blood Pressure 151/95 H 161/91 H Pulse Oximetry 99 Oxygen Delivery Method 09/21/24 14:00 09/21/24 14:30 09/21/24 14:30 Pulse Rate 89 87 Respiratory Rate Blood Pressure 144/90 H Pulse Oximetry 98 98 Oxygen Delivery Method Room Air Oxygen Delivery Method Room Air Narrative Exam Narrative: GENERAL: This is a well-nourished, well-developed patient, in no apparent distress. HEAD: Atraumatic. Normocephalic. No temporal or scalp tenderness. EYES: Pupils equal round and reactive. Extraocular motions intact. No scleral icterus. No injection or drainage. ENT: Mucous membranes pink and moist. Oropharynx difficult to visualize given limited ability to open mouth due to right jaw pain. No exudates visualized. NECK: Trachea midline, moderate swelling of the right neck, no crepitus or fluctuance, with right neck posterior cervical chain adenopathy palpable. CARDIOVASCULAR: Regular rate and rhythm without murmurs, gallops, or rubs. RESPIRATORY: Clear to auscultation. GASTROINTESTINAL: Abdomen soft, non-tender, nondistended. EXTREMITIES: No clubbing, cyanosis, or edema. NEUROLOGIC: Alert, oriented, speech fluent, full upper and lower motor strength, no focal deficits evident. DERMATOLOGIC: No rashes or skin lesions. Objective Imaging CT neck soft tissue: Radiologist's impression: Abnormal fluid is seen within the prevertebral space (danger space). - Urgent ENT consultation is recommended. There is abnormal fluid also seen within the right tonsillar region, extending down into the right piriform sinus, yet without a well loculated abscess. Borderline enlarged cervical lymph nodes can be seen on both sides, right worse than left, which are regarded to be reactive lymph nodes in a patient of this age. Labs 09/21/24 10:42 09/21/24 10:42 Labs: Laboratory Results - last 24 hr 09/21/24 10:42 WBC 11.3 H RBC 4.03 Hgb 13.6 Hct 39.8 MCV 98.8 MCH 33.8 MCHC 34.2 RDW 12.6 Plt Count 300 Neut % (Auto) 78.2 H Lymph % (Auto) 9.8 L [place] % (Auto) 9.3 Eos % (Auto) 2.3 Baso % (Auto) 0.4 Neut # (Auto) 8900 H Lymph # (Auto) 1100 [place] # (Auto) 1100 H Eos # (Auto) 300 Baso # (Auto) 0 Sodium 137 Potassium 4.1 Chloride 104 Carbon Dioxide 23 BUN 9 Creatinine 0.71 Estimated GFR > 60 BUN/Creatinine Ratio 12.7 Glucose 84 Lactate 1.2 Calcium 9.0 Total Bilirubin 0.6 AST 44 H ALT 44 H Alkaline Phosphatase 99 Total Protein 7.7 Albumin 4.3 Globulin 3.4 Albumin/Globulin Ratio 1.3 Assessment & Plan Assessment & Plan narrative: 1. Streptococcal pharyngitis. 2. Prevertebral fluid collection due to 1., possible early abscess. 3. Leukocytosis. 4. Chronic anxiety. 5. History of preeclampsia. Plan: -IV clindamycin (penicillin allergic) -IV dexamethasone 4 mg q.6 hours -ENT consultation -continue routine medications -full liquid diet tonight, NPO after midnight in the event of surgical exploration DVT prophylaxis: Sequential compression devices, low risk -code status full code. Quality VTE Deep Vein Thrombosis/Pulmonary Embolism Present on Admission: No IH PROFEE Charge Codes Initial inpatient/observation care: 15602
[2024-09-21] MEDS: HYDROMORPHONE 0.5 MG INJ IV ×2 (16:40→18:38)
[2024-09-21] MEDS: DEXTROSE 5%-0.45% NS 1,000 ML 100 ML IV (16:41)
[2024-09-21] MEDS: INFLUENZA VACCINE QIV 0.5 ML SYRINGE IM (17:23)
[2024-09-21] MEDS: diphenhydrAMINE 50 MG/ML VIAL 25 MG IV ×2 (17:45→23:47)
[2024-09-21] MEDS: DEXAMETHASONE 4 MG/ML VIAL IV ×2 (18:18→23:34)
[2024-09-22] VITALS: BP 112/80; PULSE 86; RESP 19; TEMP 36.6; O2SAT 97
[2024-09-22] MEDS: HYDROMORPHONE 0.5 MG INJ 1 MG IV ×3 (00:12→05:51)
--- NOTE | 2024-09-22 02:24 | PC.NURSE ---
Assumed care of patient at 0130
[2024-09-22] MEDS: DEXTROSE 5%-0.45% NS 1,000 ML 100 ML IV (03:24)
[2024-09-22 04:00] VITALS: BP 120/76; PULSE 84; RESP 19; TEMP 37; O2SAT 96
[2024-09-22] MEDS: DEXAMETHASONE 4 MG/ML VIAL IV (05:52)
[2024-09-22] MEDS: diphenhydrAMINE 50 MG/ML VIAL 25 MG IV (05:52)
[2024-09-22] MEDS: ONDANSETRON 4 MG/2 ML INJ IV (05:52)
[2024-09-22] MEDS: CLINDAMYCIN 600 MG/50 ML PIGGYBACK 50 MG IV ×2 (05:53→12:06)
[2024-09-22 06:23] LABS: Add Manual Diff / Slide Review NO; Basophils Absolute Auto 0 /uL (0-100); Basophils Percent Auto 0.1 % (0-2); Eosinophils Absolute Auto 0 /uL (0-450); Hemoglobin 12.6 g/dL (12.0-16.0); Lymphocytes Absolute Auto 700 /uL (1100-4500); Lymphocytes Percent Auto 5.3 % (25-40); Mean Corpuscular Hemoglobin 33.6 PG (26-34); Mean Corpuscular Volume 98.8 fL (80-100); Monocytes Absolute Auto 500 /uL (0-900); Monocytes Percent Auto 3.5 % (3-14); Neutrophils Absolute Auto 12600 /uL (1500-7000); Neutrophils Percent Auto 91.1 % (50-75); Platelet Count 394 X10^3/uL (150-400); Red Blood Cell Count 3.74 X10^6/uL (4.0-5.2); Red Cell Distribution Width 12.5 % (11.6-14.8); White Blood Cell Count 13.8 X10^3/uL (4.5-11.0)
[2024-09-22] MEDS: SERTRALINE 50 MG TABLET 25 MG PO (06:24)
[2024-09-22 08:00] VITALS: BP 119/65; PULSE 66; RESP 16; TEMP 36.4; O2SAT 100
[2024-09-22] MEDS: BENZOCAINE/MENTHOL 1 LOZ PKT 1 EACH PO (09:07)
[2024-09-22] MEDS: HYDROMORPHONE 0.5 MG INJ IV ×2 (09:12→13:15)
--- NOTE | 2024-09-22 10:47 | P.PN_ITS ---
Subjective Subjective Date Patient Seen: 09/22/24 Time Patient Seen: 08:35 Interval history: Narrative: 34-year-old woman under the primary care of Dr. Jennifer Shahid reports 3 days of sore throat with right ear and neck pain, fever to 101?, and nonproductive cough. She was seen in walk-in clinic yesterday and tested positive for strep and started on azithromycin. She had increasing pain and discomfort in the right neck and return to the emergency department where she was found to have a prevertebral fluid collection on CT imaging without loculated abscess. She was seen by Dr. Ibrahim of ENT in the emergency department, given clindamycin and dexamethasone and admitted for medical management and possible surgery if worsening. She states she is able to swallow liquids, has considerable nausea and pain, otherwise without active issues. She has 2 and 4-year-old children who are healthy without illness. She has a history of preeclampsia without complication and anxiety controlled with sertraline with occasional buspirone as needed for panic attack, currently controlled, but otherwise no active issues. Subjective: She reports that she is able to swallow secretions, reporting less swelling and pain, and is hoping to advance her diet. Exam Vital Signs (past 8 hours): - 09/22/24 04:00 09/22/24 08:00 Temperature 98.6 F 97.5 F L Pulse Rate 84 66 Respiratory Rate 19 16 Blood Pressure 120/76 119/65 Pulse Oximetry 96 100 Oxygen Flow Rate 0 0 Oxygen Delivery Method Room Air Oxygen Flow Rate 0 Narrative Exam Narrative: GENERAL: This is a well-nourished, well-developed patient, in no apparent distress. EYES: Pupils equal round and reactive. Extraocular motions intact. No scleral icterus. No injection or drainage. ENT: Mucous membranes pink and moist. Oropharynx difficult to visualize given limited ability to open mouth due to right jaw pain but much improved from yesterday, with posterior pharynx visualized without exudate. NECK: Trachea midline, improved swelling and decreased tenderness of the right neck, no crepitus or fluctuance, with right neck posterior cervical chain adenopathy palpable. CARDIOVASCULAR: Regular rate and rhythm without murmurs, gallops, or rubs. RESPIRATORY: Clear to auscultation. GASTROINTESTINAL: Abdomen soft, non-tender, nondistended. EXTREMITIES: No clubbing, cyanosis, or edema. NEUROLOGIC: Alert, oriented, speech fluent, full upper and lower motor strength, no focal deficits evident. DERMATOLOGIC: No rashes or skin lesions. Objective Labs 09/22/24 05:44 09/21/24 10:42 Labs: Laboratory Results - last 24 hr 09/21/24 09/22/24 10:42 05:44 WBC 11.3 H 13.8 H RBC 4.03 3.74 L Hgb 13.6 12.6 Hct 39.8 37.0 MCV 98.8 98.8 MCH 33.8 33.6 MCHC 34.2 34.0 RDW 12.6 12.5 Plt Count 300 394 Neut % (Auto) 78.2 H 91.1 H Lymph % (Auto) 9.8 L 5.3 L [place] % (Auto) 9.3 3.5 Eos % (Auto) 2.3 0.0 L Baso % (Auto) 0.4 0.1 Neut # (Auto) 8900 H 79343 H Lymph # (Auto) 1100 700 L [place] # (Auto) 1100 H 500 Eos # (Auto) 300 0 Baso # (Auto) 0 0 Sodium 137 Potassium 4.1 Chloride 104 Carbon Dioxide 23 BUN 9 Creatinine 0.71 Estimated GFR > 60 BUN/Creatinine Ratio 12.7 Glucose 84 Lactate 1.2 Calcium 9.0 Total Bilirubin 0.6 AST 44 H ALT 44 H Alkaline Phosphatase 99 Total Protein 7.7 Albumin 4.3 Globulin 3.4 Albumin/Globulin Ratio 1.3 PFSH Medical History Allergic rhinitis Anxiety Asthma Bilateral tinnitus Chromhidrosis Gestational hypertension affecting second Menorrhagia with regular cycle Migraine Palpitations Plantar wart depression associated with second Preeclampsia Preeclampsia in period Psoriasis Recurrent cold sores Surgical History H/O wisdom tooth extraction H/O: History of removal of skin mole History of tonsillectomy Family History Mother Arthritis Endometriosis Hyperlipidemia Hypertension Age related osteoporosis Grandfather Hyperlipidemia Hypertension Stroke Grandmother Hyperlipidemia Hypertension Stroke Macular degeneration Father Melanoma Grandfather Leukemia Grandfather Laryngeal cancer Social History marital status: number of children: 1 household members: spouse and children lives independently: Yes housing: house pets and animals: Yes (1 dog) education level: college occupational status: employed current occupational exposures/hazards: No special yokasta needs: No travel history: over 6 months ago seatbelt use: always helmet use: Yes water heater temp set < 120 deg: Yes working smoke detector in home: Yes fire extinguisher in home: Yes carbon monox detector in home: Yes firearms in home: Yes firearms unloaded and locked: Yes do you feel safe at home: Yes Smoking Status: Never smoker second hand exposure: No alcohol intake: current substance use type: does not use during the past year weight has: remained stable well-balanced diet: daily or most days daily servings fruits/ve-4 caffeine: Yes Type(s) of exercise: regular exercise, weight lifting, yoga and additional Assessment & Plan Assessment & Plan narrative: 1. Streptococcal pharyngitis. Clinically improved with decreased swelling and pain today. ENT has seen the patient this morning and no surgery is planned. Continue to monitor on IV dexamethasone and clindamycin. 2. Prevertebral fluid collection due to 1., possible early abscess. 3. Leukocytosis. 4. Chronic anxiety. 5. History of preeclampsia. Plan: -advanced to full liquid diet -IV clindamycin (penicillin allergic) -IV dexamethasone 4 mg q.6 hours -pain control -ENT consultation appreciated -continue routine medications -possible discharge home tomorrow on oral antibiotics and steroids if doing well. DVT prophylaxis: Sequential compression devices, low risk -code status full code. Quality VTE Deep Vein Thrombosis/Pulmonary Embolism Present on Admission: No [facility] Charge codes Subsequent inpatient/observation care: 99302
[2024-09-22] MEDS: OXYCODONE/ACETAMINOPHEN 5/325 TABLET 1 TAB PO ×3 (10:49→18:54)
[2024-09-22 12:00] VITALS: BP 125/72; PULSE 70; RESP 16; TEMP 36.2; O2SAT 97
[2024-09-22] MEDS: LACTOBACILLUS ACIDOPHILUS TABLET 1 EACH PO ×2 (12:05→17:25)
--- NOTE | 2024-09-22 12:11 | P.CONS_ITS ---
History of Present Illness Consult details Date Patient Seen: 09/21/24 Chief complaint: sore throat, trouble swallowing dx strep yesterday Reason for consult: Retropharyngeal phlegmon, right peritonsillar phlegmon Requesting provider: ED* *Temp Narrative: Patient originally seen by myself shortly after admission on 09/21/24 in early afternoon. Subsequently seen on 09/22/24 at approximately 7:00 AM. Patient states that around 4 days ago she had onset of sore throat, predominantly on the right side. Of note, has history of tonsillectomy when she was 15. She as started on oral abx on 09/20/24, but states that her symptoms were getting worse overnight and then she came to the ED for evaluation. She states that her primary symptoms were odynophagia, sore neck, and some restriction of range of movement. She had a CT neck with contrast which showed some edema in the right tonsillar/peritonsillar region, as well as some fluid in the prevertebral/retropharyngeal space without specifid rim-enhancing abscess and ENT consult was recommended. Her WBC was 11.3. No history of this happening previously. No history of prior HN surgery other than tonsillectomy. No issues with breathing. Able to control her secretions. No other concerns. She was subsequently admitted to the hospital and started on IV antibiotics (clindamycin in context of penicillin allergy) and on steroids. 09/22/24 (7:00 AM) She was subsequently seen on day 1 of admission by myself at approximately 7:00 AM. At this time she noted improved pain and range of motion. Also felt like swelling in the back of her throat had decreased. Still some persistent pain on the right side. WBC had increased from 11.3 to 13.8 (although of note she was placed on IV steroids). No other new changes. No increased work of breathing. Meds Home Medications and Allergies Home Medications Medication Instructions Recorded Confirmed Type sumatriptan succinate 50 mg tablet 50 mg PO Q2-4H PRN migraine 01/15/24 09/21/24 Rx (Imitrex) headache #20 tabs valacyclovir 500 mg tablet 500 mg PO BID #30 tabs 01/15/24 09/22/24 Rx buspirone 7.5 mg tablet 7.5 mg PO BID PRN anxiety/panic 06/25/24 09/21/24 Rx #30 tabs propranolol 40 mg tablet 40 mg PO BID PRN anxiety #30 tabs 06/25/24 09/21/24 Rx sertraline 25 mg tablet 25 mg PO DAILY #90 tabs 06/25/24 09/21/24 Rx progesterone micronized 200 mg 200 - 600 mg (1 - 3 x 200 mg) PO 08/22/24 09/21/24 Rx capsule BEDTIME #90 caps azithromycin 250 mg tablet See Rx Instructions PO .COMPLEX #6 09/20/24 09/21/24 Rx tabs Allergies Allergy/AdvReac Type Severity Reaction Status Date / Time amoxicillin [AMOXICILLIN] Allergy Intermediate RASH Verified 09/21/24 07:27 Penicillins [PENICILLINS] Allergy Intermediate RASH Verified 09/21/24 07:27 cat dander AdvReac Intermediate Verified 09/21/24 07:27 cefaclor [From Ceclor] AdvReac Intermediate Hives Verified 09/21/24 07:27 house dust mite AdvReac Intermediate Verified 09/21/24 07:27 Exam Vital Signs (past 8 hours): - 09/22/24 08:00 Temperature 97.5 F L Pulse Rate 66 Respiratory Rate 16 Blood Pressure 119/65 Pulse Oximetry 100 Oxygen Flow Rate 0 Oxygen Delivery Method Room Air Oxygen Flow Rate 0 Narrative Exam Narrative: Alert and oriented x 3 Breathing comfortably. No stridor or tripoding Voice strong Controlling secretions Mild right lateral oropharyngeal edema noted on transoral examination (improved on 09/22/24 compared to 09/21/24) Evidence of prior tonsillectomy Mild trismus (improved on 09/22/24 compared to 09/21/24) Moderate tenderness to palpation of right neck (improved on 09/22/24 compared to 09/21/24) Mildly decreased ROM of neck most notable with right head turn but she is able to accomplish this (improved ROM on 09/22/24 compared to 09/21/24 but still midly restricted) No skin changes of right neck Objective Labs 09/22/24 05:44 09/21/24 10:42 Labs: Laboratory Results - last 24 hr 09/22/24 05:44 WBC 13.8 H RBC 3.74 L Hgb 12.6 Hct 37.0 MCV 98.8 MCH 33.6 MCHC 34.0 RDW 12.5 Plt Count 394 Neut % (Auto) 91.1 H Lymph % (Auto) 5.3 L [place] % (Auto) 3.5 Eos % (Auto) 0.0 L Baso % (Auto) 0.1 Neut # (Auto) 41799 H Lymph # (Auto) 700 L [place] # (Auto) 500 Eos # (Auto) 0 Baso # (Auto) 0 PFSH Medical History Allergic rhinitis Anxiety Asthma Bilateral tinnitus Chromhidrosis Gestational hypertension affecting second Menorrhagia with regular cycle Migraine Palpitations Plantar wart depression associated with second Preeclampsia Preeclampsia in period Psoriasis Recurrent cold sores Surgical History H/O wisdom tooth extraction H/O: History of removal of skin mole History of tonsillectomy Family History Mother Arthritis Endometriosis Hyperlipidemia Hypertension Age related osteoporosis Grandfather Hyperlipidemia Hypertension Stroke Grandmother Hyperlipidemia Hypertension Stroke Macular degeneration Father Melanoma Grandfather Leukemia Grandfather Laryngeal cancer Social History marital status: number of children: 1 household members: spouse and children lives independently: Yes housing: house pets and animals: Yes (1 dog) education level: college occupational status: employed current occupational exposures/hazards: No special yokasta needs: No travel history: over 6 months ago Safety seatbelt use: always helmet use: Yes water heater temp set < 120 deg: Yes working smoke detector in home: Yes fire extinguisher in home: Yes carbon monox detector in home: Yes firearms in home: Yes firearms unloaded and locked: Yes do you feel safe at home: Yes Tobacco & Substance Use Smoking Status: Never smoker second hand exposure: No alcohol intake: current substance use type: does not use Diet and Exercise during the past year weight has: remained stable well-balanced diet: daily or most days daily servings fruits/ve-4 caffeine: Yes Type(s) of exercise: regular exercise, weight lifting, yoga and additional Assessment & Plan Assessment & Plan narrative: Sugar Porras is a 34 year old female who presented to the ED on 09/21/24 for several days of progressive right odynophagia, dysphagia, neck pain, and reduced range of motion found on CT neck with contrast to have right tonsillar/peritonsillar phlegmon and retropharyngeal/prevertebral edema without evidence of loculated abscess. I was initially consulted on 09/21/24 and based on symptoms and review of imaging admission to hospital was recommended with initiation of IV clindamycin and steroids with possibly need for surgery if patient does not demonstrate improvement on this regimen. Evaluation performed on 09/22/24 and patient showed improvement in pain, neck ROM, and right lateral oropharyngeal edema. She continues to have some mildly decreased ROM, and still has some pain. Her WBC did uptrend slightly from 11.3 to 13.8 however she was placed on IV steroids upon her admission on 09/21/24. PLAN 09/22/24: -- Recommend discontinuation of IV steroids - initially for symptomatic management but now would like to avoid masking any progression of symptoms -- Continue IV antibiotics -- Okay for diet today. Please make NPO at midnight again night of 09/22/24 -- Discussed with patient that this location can develop into a serious infection, and while initial trial of IV antibiotics can improve this, occasionally surgical intervention is required -- Recommend repeat CT neck with contrast morning of 09/23/24 for interval evaluation -- Pending symptoms and repeat imaging options for further management include continued IV antibiotics, right transcervical drainage, or potential discharge on oral antibiotics Time-Based Coding :: [TOTAL MINUTES] spent with patient and on the chart (including review of chart, obtaining history, exam, reviewing outside data, placing orders, documenting exam and treatment plan, and counseling patient) on [DATE].
[2024-09-22 16:00] VITALS: BP 124/78; PULSE 79; RESP 16; TEMP 36.3; O2SAT 97
--- NOTE | 2024-09-22 16:25 | CM.DPNOTE ---
34 yo F admitted with strep and pharyngeal abscess, improving with antibiotics, ODILIA 09/23. Did not see d/t triage needs, no needs immediately identified or expressed from Dr. Arguelles. KAROL Salazar
[2024-09-22] MEDS: CLINDAMYCIN 600 MG/50 ML PIGGYBACK 200 MG IV (18:55)
[2024-09-22 20:00] VITALS: BP 113/74; PULSE 60; RESP 14; TEMP 36.4; O2SAT 99
[2024-09-23] VITALS: BP 115/77; PULSE 71; RESP 16; TEMP 36.4; O2SAT 98
[2024-09-23] MEDS: CLINDAMYCIN 600 MG/50 ML PIGGYBACK 50 MG IV (00:11)
[2024-09-23] MEDS: diphenhydrAMINE 50 MG/ML VIAL 25 MG IV ×2 (00:11→21:42)
[2024-09-23] MEDS: OXYCODONE/ACETAMINOPHEN 5/325 TABLET 2 TAB PO (00:17)
[2024-09-23] MEDS: SERTRALINE 50 MG TABLET PO ×2 (05:46→09:18)
[2024-09-23] MEDS: OXYCODONE/ACETAMINOPHEN 5/325 TABLET 1 TAB PO (05:46)
[2024-09-23 05:47] VITALS: BP 140/82; PULSE 90; RESP 16; TEMP 36.4; O2SAT 98
--- NOTE | 2024-09-23 06:00 | DI.CT.S_ITS ---
PROCEDURE: CT SOFT TISSUE NECK W CON INDICATIONS: retropharyngeal abcess/fluid TECHNIQUE: After the administration of intravenous contrast, 3.0 mm axial sections acquired from the sella to the aortic arch. Additional oblique axial 3.0 mm sections acquired through the pharynx. 3 mm thick coronal and sagittal reformats were generated. For radiation dose reduction, the following was used: automated exposure control. COMPARISON: [facility], CT, CT SOFT TISSUE NECK W CON, 09/21/2024, 9:28. FINDINGS: Image quality: Excellent. Bone: No acute fracture or dislocation. Alignment: Straightening of the cervical lordosis. Muscles: Overall muscle bulk is preserved. Neck spaces: 1.2 x 1.5 x 2.8 cm loculated, peritonsillar abscess abutting the right palatine tonsil (2/), which was less conspicuous and less organized on the 09/21/2024 exam. There is residual fluid in the retropharyngeal space up to a maximal thickness of 0.3 cm (4/32), previously 0.7 cm. 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 Orbits: Optic globes, intraconal/extraconal fat spaces, and extraocular muscles within normal limits. No retrobulbar mass. Thyroid gland: Within normal limits. Airway: Visualized trachea within normal limits. Esophagus: No abnormal mural thickening of the visualized esophagus. Lymph nodes: No cervical or medial supraclavicular lymphadenopathy. Nonenlarged bilateral cervical lymph nodes are present, likely reactive (2/22). Vessels: No aneurysmal dilatation of the visualized vasculature. Lung apices: No pneumothorax in the visualized lung apices. Sinuses: Visualized paranasal sinuses, mastoid air cells, and middle ear cavities are clear. Dentition: Within normal limits. Soft tissues: No acute abnormality. IMPRESSION: Increased conspicuity and organization of palatine peritonsillar 2.8 cm abscess with interval decrease in retropharyngeal abscess size. The overall impression is concordant with the preliminary report. Dictated by: Adama Vickers M.D. on 09/23/2024 at 8:15 Approved by: Adama Vickers M.D. on 09/23/2024 at 8:37
[2024-09-23] MEDS: CLINDAMYCIN 600 MG in SODIUM CHLORIDE 0.9% 50 ML 54 MG IV ×3 (07:31→19:35)
--- NOTE | 2024-09-23 07:57 | PM.PN.1 ---
Subjective Subjective Date Patient Seen: 09/23/24 Interval history: She is seen in her room today to follow-up the tonsillar abscess. She is discussed with ENT. The patient reports increased pain after the dexamethasone was held. The CT scan results today are mixed but largely improved. The white blood count was 13.8 yesterday. The AST was 44 and the ALT was 44. Exam Vital Signs (past 8 hours): - 09/23/24 00:00 09/23/24 05:47 Temperature 97.5 F L 97.6 F Pulse Rate 71 90 Respiratory Rate 16 16 Blood Pressure 115/77 140/82 Pulse Oximetry 98 98 Oxygen Flow Rate 0 0 Oxygen Delivery Method Room Air Oxygen Flow Rate 0 Narrative Exam Narrative: Alert and oriented x3. Appears to be in moderate distress from throat pain. Heart is regular rate and rhythm without murmur Lungs are clear to auscultation bilaterally She is unable to open the mouth wide enough to see any pharyngeal appearance. The right upper neck and jaw line is tender to touch. Objective Labs 09/22/24 05:44 09/21/24 10:42 [facility] Medical History Allergic rhinitis Anxiety Asthma Bilateral tinnitus Chromhidrosis Gestational hypertension affecting second Menorrhagia with regular cycle Migraine Palpitations Plantar wart depression associated with second Preeclampsia Preeclampsia in period Psoriasis Recurrent cold sores Surgical History H/O wisdom tooth extraction H/O: History of removal of skin mole History of tonsillectomy Family History Mother Arthritis Endometriosis Hyperlipidemia Hypertension Age related osteoporosis Grandfather Hyperlipidemia Hypertension Stroke Grandmother Hyperlipidemia Hypertension Stroke Macular degeneration Father Melanoma Grandfather Leukemia Grandfather Laryngeal cancer Social History marital status: number of children: 1 household members: spouse and children lives independently: Yes housing: house pets and animals: Yes (1 dog) education level: college occupational status: employed current occupational exposures/hazards: No special yokasta needs: No travel history: over 6 months ago seatbelt use: always helmet use: Yes water heater temp set < 120 deg: Yes working smoke detector in home: Yes fire extinguisher in home: Yes carbon monox detector in home: Yes firearms in home: Yes firearms unloaded and locked: Yes do you feel safe at home: Yes Smoking Status: Never smoker second hand exposure: No alcohol intake: current substance use type: does not use during the past year weight has: remained stable well-balanced diet: daily or most days daily servings fruits/ve-4 caffeine: Yes Type(s) of exercise: regular exercise, weight lifting, yoga and additional Assessment & Plan Assessment & Plan narrative: 1. Streptococcal pharyngitis. Clinically increased pain today. ENT will see her again to follow up the new CT. Continue to monitor on IV dexamethasone(held overnight per ENT to rule out masking) and clindamycin. 2. Prevertebral fluid collection due to 1, possible early abscess. 3. Leukocytosis. 4. Chronic anxiety. 5. History of preeclampsia. Plan: -NPO pending ENT follow up today -IV clindamycin (penicillin allergic) -IV dexamethasone 4 mg q.6 hours resumed due to increased pain when held -pain control -ENT consultation appreciated -continue routine medications -possible discharge home tomorrow on oral antibiotics and steroids if doing well. DVT prophylaxis: Sequential compression devices, low risk -code status full code. Time-Based Coding :: [TOTAL MINUTES] spent with patient and on the chart (including review of chart, obtaining history, exam, reviewing outside data, placing orders, documenting exam and treatment plan, and counseling patient) on [DATE]. Quality VTE Deep Vein Thrombosis/Pulmonary Embolism Present on Admission: No
[2024-09-23] MEDS: HYDROMORPHONE 0.5 MG INJ IV (08:00)
[2024-09-23] MEDS: LACTOBACILLUS ACIDOPHILUS TABLET 1 EACH PO ×3 (09:18→17:36)
[2024-09-23] MEDS: HYDROMORPHONE 1 MG INJ IV ×5 (09:18→19:37)
[2024-09-23] MEDS: SUMAtriptan 25 MG TABLET 50 MG PO ×2 (09:18→17:36)
--- NOTE | 2024-09-23 10:56 | CM.DANOTE ---
B DCP Assessment Note pt is a 34yo F admitted with strep throat with a significant throat abscess. PCP Lazara Shahid Payer [place] and self pay MINK RANCHER reviewed EMR. ENT provider consulted. currently getting IV abx and IV steroids. Per hospitalist in morning rounds, abscess has increased in size. likely repeat CT neck recommended for today per ENT note. potential need for drainage of abscess if continues to worsen. Per chart review/provider report, no anticipated DCP needs at/identified barriers to safe dc home at this time. 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 No History Provided By Patient Prior Living Arrangements House Household Members spouse,children Independent with ADL's Yes Is patient alert and oriented? Yes Discharge Plan Home Referrals Initiated None needed Review Status In Process Please Provide Date Initial DC 09/23/24 Assessment Was Performed Next Review Type Continued Stay Review
[2024-09-23] MEDS: DEXAMETHASONE 4 MG/ML VIAL IV ×2 (11:23→17:38)
[2024-09-23] MEDS: ONDANSETRON 4 MG/2 ML INJ IV ×2 (11:23→17:39)
[2024-09-23 13:00] VITALS: BP 148/92; PULSE 77; RESP 18; TEMP 36.6; O2SAT 99
--- NOTE | 2024-09-23 15:04 | P.PN_ITS ---
Subjective Subjective Interval history: Patient originally seen by myself shortly after admission on 09/21/24 in early afternoon. Subsequently seen on 09/22/24 at approximately 7:00 AM. Patient states that around 4 days ago she had onset of sore throat, predominantly on the right side. Of note, has history of tonsillectomy when she was 15. She as started on oral abx on 09/20/24, but states that her symptoms were getting worse overnight and then she came to the ED for evaluation. She states that her primary symptoms were odynophagia, sore neck, and some restriction of range of movement. She had a CT neck with contrast which showed some edema in the right tonsillar/peritonsillar region, as well as some fluid in the prevertebral/retropharyngeal space without specifid rim-enhancing abscess and ENT consult was recommended. Her WBC was 11.3. No history of this happening previously. No history of prior HN surgery other than tonsillectomy. No issues with breathing. Able to control her secretions. No other concerns. She was subsequently admitted to the hospital and started on IV antibiotics (clindamycin in context of penicillin allergy) and on steroids. 09/22/24 (7:00 AM) She was subsequently seen on day 1 of admission by myself at approximately 7:00 AM. At this time she noted improved pain and range of motion. Also felt like swelling in the back of her throat had decreased. Still some persistent pain on the right side. WBC had increased from 11.3 to 13.8 (although of note she was placed on IV steroids). No other new changes. No increased work of breathing. 09/23/24: Patient had repeat CT scan this morning which showed improvement in RP/prevertebral edema but maturation of right parapharyngeal collection. Steroids were stopped yesterday to avoid masking symptoms. She continues to have trismus and right-sided neck pain. No increased work of breathing Exam Vital Signs (past 8 hours): - 09/23/24 13:00 Temperature 97.8 F Pulse Rate 77 Respiratory Rate 18 Blood Pressure 148/92 H Pulse Oximetry 99 Oxygen Flow Rate 0 Oxygen Delivery Method Room Air Oxygen Flow Rate 0 Narrative Exam Narrative: Alert and oriented x 3 Breathing comfortably. No stridor or tripoding Controlling secretions Very mild right lateral oropharyngeal edema noted on transoral examination - improved from initial exam Evidence of prior tonsillectomy Mild trismus - stable to slightly worse than yesterday Moderate tenderness to palpation of right neck in submandibular/retromandibular region Mildly decreased ROM of neck most notable with right head turn but she is able to accomplish this Objective Labs 09/22/24 05:44 09/21/24 10:42 [facility] Medical History Allergic rhinitis Anxiety Asthma Bilateral tinnitus Chromhidrosis Gestational hypertension affecting second Menorrhagia with regular cycle Migraine Palpitations Plantar wart depression associated with second Preeclampsia Preeclampsia in period Psoriasis Recurrent cold sores Surgical History H/O wisdom tooth extraction H/O: History of removal of skin mole History of tonsillectomy Family History Mother Arthritis Endometriosis Hyperlipidemia Hypertension Age related osteoporosis Grandfather Hyperlipidemia Hypertension Stroke Grandmother Hyperlipidemia Hypertension Stroke Macular degeneration Father Melanoma Grandfather Leukemia Grandfather Laryngeal cancer Social History marital status: number of children: 1 household members: spouse and children lives independently: Yes housing: house pets and animals: Yes (1 dog) education level: college occupational status: employed current occupational exposures/hazards: No special yokasta needs: No travel history: over 6 months ago seatbelt use: always helmet use: Yes water heater temp set < 120 deg: Yes working smoke detector in home: Yes fire extinguisher in home: Yes carbon monox detector in home: Yes firearms in home: Yes firearms unloaded and locked: Yes do you feel safe at home: Yes Smoking Status: Never smoker second hand exposure: No alcohol intake: current substance use type: does not use during the past year weight has: remained stable well-balanced diet: daily or most days daily servings fruits/ve-4 caffeine: Yes Type(s) of exercise: regular exercise, weight lifting, yoga and additional Assessment & Plan Assessment & Plan narrative: Sugar Porras is a 34 year old female who presented to the ED on 09/21/24 for several days of progressive right odynophagia, dysphagia, neck pain, and reduced range of motion found on CT neck with contrast to have right tonsillar/peritonsillar phlegmon and retropharyngeal/prevertebral edema without evidence of loculated abscess. I was initially consulted on 09/21/24 and based on symptoms and review of imaging admission to hospital was recommended with initiation of IV clindamycin and steroids with possibly need for surgery if patient does not demonstrate improvement on this regimen. Evaluation performed on 09/22/24 and patient showed improvement in pain, neck ROM, and right lateral oropharyngeal edema. She continues to have some mildly decreased ROM, and still has some pain. Her WBC did uptrend slightly from 11.3 to 13.8 however she was placed on IV steroids upon her admission on 09/21/24. PLAN 09/23/24: -- Continue IV antibiotics and consider broadening -- Discussed with patient and primary team - given consolidation of right parapharyngeal collection in region difficult to access would recommend transfer to tertiary care center for consideration of I&D -- Reviewed with patient findings on updated imaging and likely need for surgery (possibly transoral, possibly transcervical) Time-Based Coding :: [TOTAL MINUTES] spent with patient and on the chart (including review of chart, obtaining history, exam, reviewing outside data, placing orders, documenting exam and treatment plan, and counseling patient) on [DATE]. Quality VTE Deep Vein Thrombosis/Pulmonary Embolism Present on Admission: No
[2024-09-23] MEDS: SODIUM CHLORIDE 0.9% 1,000 ML 175 ML IV (17:37)
[2024-09-23] MEDS: KETOROLAC 30 MG/ML VIAL 15 MG IV (17:37)
[2024-09-23 18:00] VITALS: BP 140/90; PULSE 70; RESP 15; TEMP 36.7; O2SAT 98
[2024-09-23] MEDS: polyethylene glycoL 3350 17 GM POWD.PACK PO (19:35)
[2024-09-23 20:58] VITALS: BP 132/88; PULSE 62; RESP 16; TEMP 36.2; O2SAT 96
[2024-09-24] MEDS: KETOROLAC 30 MG/ML VIAL 15 MG IV ×2 (00:36→08:49)
[2024-09-24] MEDS: DEXAMETHASONE 4 MG/ML VIAL IV ×2 (00:37→05:45)
[2024-09-24] MEDS: HYDROMORPHONE 1 MG INJ IV ×3 (00:37→16:27)
[2024-09-24 00:45] VITALS: O2SAT 96
[2024-09-24] MEDS: diphenhydrAMINE 50 MG/ML VIAL 25 MG IV ×3 (01:42→14:21)
[2024-09-24] MEDS: CLINDAMYCIN 600 MG/50 ML PIGGYBACK 50 MG IV ×3 (01:42→14:20)
[2024-09-24 04:00] VITALS: O2SAT 96
[2024-09-24] MEDS: ONDANSETRON 4 MG/2 ML INJ IV ×2 (05:49→11:45)
[2024-09-24] MEDS: polyethylene glycoL 3350 17 GM POWD.PACK PO (06:55)
[2024-09-24] MEDS: SERTRALINE 50 MG TABLET PO (06:56)
--- NOTE | 2024-09-24 07:02 | P.DS_ITS ---
History of Present Illness History of Present Illness Date Patient Seen: 09/24/24 Chief complaint: sore throat, trouble swallowing dx strep yesterday Narrative: 34-year-old woman under the primary care of Dr. Jennifer Shahid reports 3 days of sore throat with right ear and neck pain, fever to 101?, and nonproductive cough. She was seen in walk-in clinic yesterday and tested positive for strep and started on azithromycin. She had increasing pain and discomfort in the right neck and return to the emergency department where she was found to have a prevertebral fluid collection on CT imaging without loculated abscess. She was seen by Dr. Rocha of ENT in the emergency department, given clindamycin and dexamethasone and admitted for medical management and possible surgery if worsening. She states she is able to swallow liquids, has considerable nausea and pain, otherwise without active issues. She has 2 and 4-year-old children who are healthy without illness. She has a history of preeclampsia without complication and anxiety controlled with sertraline with occasional buspirone as needed for panic attack, currently controlled, but otherwise no active issues. Discharge Providers Provider Date of admission: 09/21/24 13:41 Discharge Date: 09/24/24 Primary care physician: Lazara Shahid DO Consults: 09/21/24 15:51 Consult to Physician Routine Comment: Consulting Provider: Vic Ibrahim Reason for consultation: strep pharyngitis Has provider been notified: Yes Discharge provider: Crystal Bosch MD Summary Hospital Course Discharge Diagnosis: 1. Streptococcal pharyngitis. 2. 1.2 x 1.5 x 2.8 cm loculated, peritonsillar abscess abutting the right palatine tonsil. 3. Leukocytosis. 4. Chronic anxiety. 5. History of preeclampsia. Hospital Course: CT: Neck spaces: 1.2 x 1.5 x 2.8 cm loculated, peritonsillar abscess abutting the right palatine tonsil (10/22), which was less conspicuous and less organized on the 09/21/2024 exam. There is residual fluid in the retropharyngeal space up to a maximal thickness of 0.3 cm (), previously 0.7 cm. The parotid, agriculture inspector, submandibular, parapharyngeal, pharyngeal mucosal, retropharyngeal, and perivertebral spaces are otherwise within normal limits. Plan: The patient has been discussed extensively with ENT and attempts were made to transfer to a tertiary hospital at their recommendation. No beds were available. An alternative plan of transfer to [facility] where continued antibiotic/steroid treatment and possible incision and drainage surgery by ENT was determined to be her best next step. -she has been able to eat again since yesterday and is feeling better but will be kept NPO at this point. -IV clindamycin (penicillin allergic) 600 mg q.6 hours -IV dexamethasone 4 mg q.6 hours was decreased today to 2 mg q.6 hours due to increased anxiety. -pain control -ENT consultation appreciated -continue routine medications for anxiety. Status at Discharge Cognitive/behavioral status at discharge: at baseline, oriented Functional status at discharge: independent ambulation Overall status at discharge: patient is not back to baseline Exam Vital Signs (past 8 hours): - 09/24/24 00:45 09/24/24 04:00 Pulse Oximetry 96 96 Oxygen Flow Rate 0 0 Oxygen Delivery Method Room Air Oxygen Flow Rate 0 Narrative Exam Narrative: Alert and oriented x3. Moderate distress from swallowing and throat pain. She is now able to open her mouth slightly but a thorough pharyngeal exam is not successful. There is a small egg size area of swelling and tenderness under the right angle of the jaw. Heart is regular rate and rhythm without murmur Lungs are clear to auscultation bilaterally Objective Labs 09/24/24 09:40 09/21/24 10:42 [facility] Medical History Allergic rhinitis Anxiety Asthma Bilateral tinnitus Chromhidrosis Gestational hypertension affecting second Menorrhagia with regular cycle Migraine Palpitations Plantar wart depression associated with second Preeclampsia Preeclampsia in period Psoriasis Recurrent cold sores Surgical History H/O wisdom tooth extraction H/O: History of removal of skin mole History of tonsillectomy Family History Mother Arthritis Endometriosis Hyperlipidemia Hypertension Age related osteoporosis Grandfather Hyperlipidemia Hypertension Stroke Grandmother Hyperlipidemia Hypertension Stroke Macular degeneration Father Melanoma Grandfather Leukemia Grandfather Laryngeal cancer Social History marital status: number of children: 1 household members: spouse and children lives independently: Yes housing: house pets and animals: Yes (1 dog) education level: college occupational status: employed current occupational exposures/hazards: No special yokasta needs: No travel history: over 6 months ago seatbelt use: always helmet use: Yes water heater temp set < 120 deg: Yes working smoke detector in home: Yes fire extinguisher in home: Yes carbon monox detector in home: Yes firearms in home: Yes firearms unloaded and locked: Yes do you feel safe at home: Yes Smoking Status: Never smoker second hand exposure: No alcohol intake: current substance use type: does not use during the past year weight has: remained stable well-balanced diet: daily or most days daily servings fruits/ve-4 caffeine: Yes Type(s) of exercise: regular exercise, weight lifting, yoga and additional Discharge Plan Discharge Plan Patient Disposition: [facility] Other facility: [facility] Under care of provider: ENT on-call and Hospitalist Diet/Activity/Treatments Diet: Nothing by Mouth Discharge Data Primary Care Provider: Lazara Shahid VTE Deep Vein Thrombosis/Pulmonary Embolism Present on Admission: No
[2024-09-24 08:00] VITALS: BP 138/90; PULSE 77; RESP 16; TEMP 36.8; O2SAT 100
[2024-09-24] MEDS: LACTOBACILLUS ACIDOPHILUS TABLET 1 EACH PO ×2 (08:49→11:44)
[2024-09-24] MEDS: HYDROMORPHONE 0.5 MG INJ IV ×3 (08:49→14:21)
[2024-09-24 09:45] LABS: Hematocrit 37.7 % (36-46); Hemoglobin 12.9 g/dL (12.0-16.0); Mean Corpuscular HGB Conc 34.3 % (30-36); Mean Corpuscular Hemoglobin 33.7 PG (26-34); Mean Corpuscular Volume 98.3 fL (80-100); Platelet Count 473 X10^3/uL (150-400); Red Blood Cell Count 3.83 X10^6/uL (4.0-5.2); Red Cell Distribution Width 12.3 % (11.6-14.8); White Blood Cell Count 12.6 X10^3/uL (4.5-11.0)
[2024-09-24 09:46] LABS: Add Manual Diff / Slide Review YES
[2024-09-24 09:54] LABS: Neutrophils Absolute Manual 11466 /uL (3000-5900); RBC Morphology Normal Morphology; Total Cells Counted 100
[2024-09-24] MEDS: DEXAMETHASONE 4 MG/ML VIAL 2 MG IV (11:44)
[2024-09-24 13:56] VITALS: BP 137/80; PULSE 88; RESP 16; O2SAT 100
[2024-09-24] MEDS: OXYCODONE/ACETAMINOPHEN 5/325 TABLET 1 TAB PO (14:52)
--- NOTE | 2024-09-24 17:50 | PC.NURSE ---
Discharge Note Patient A&O, VSS, RA, pain appropriately controlled with PRN medication, no other complaints. Patient agreeable to transfer, all questions/concerns addressed. PIV left intact, patient able to dress self and pack all belongings. Report given to banquet steward, all questions/concerns addressed. Patient taken down via wheelchair to PO.
== END 2024-09-24 16:45 | disposition short-term general hospital (02) | DRG 153 ==
LOC: ED 08:40 → AC 13:41
PROVIDERS: Family Medicine; Admitting Provider Internal Medicine; Emergency Provider Emergency Medicine; PCP Family Medicine; Referring Provider Emergency Medicine; Visit Provider Internal Medicine
DX: J36 Peritonsillar abscess (principal); F41.9 Anxiety disorder, unspecified; R60.0 Localized edema; D72.829 Elevated white blood cell count, unspecified; Z87.59 Personal history of other complications of pregnancy, childbirth and the puerperium; Z23 Encounter for immunization
CPT/HCPCS: 36415; 70491; 80053; 81025; 83605; 85007; 85025; 87040; 90471; 90656; 96361; 96365; 96367; 96375; 99284; J0134; J0736; J1100; J1171; J1200; J1885; J2270; J2405; Q2038; Q9967

== ENCOUNTER 2024-12-12 11:25 | Day surgery (SDC) | payer OTHER, SELFPAY ==
[2024-09-21 15:20] VITALS: BMI 27.3
[2024-12-02 13:25] VITALS: BMI 26.9
[2024-12-12] VITALS (7 sets, daily range): BP systolic 96–124; BP diastolic 56–80; PULSE 57–72; RESP 12–17; TEMP 35.9–36.2; O2SAT 97–99; BMI 26.9
--- NOTE | 2024-12-12 | PATH_ITS ---
[facility] Accession Number: [id number] No. of containers..01 Tissue . 01 Material submitted: . fallopian tube - BILATERAL FALLOPIAN TUBES . 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 MRV 12/16/2024 1541 Local . 01 Electronically signed: . Jeniffer Reddy DO, Pathologist NPI- [id number] . 01 Gross description: . Received in formalin with two identifiers and bilateral fallopian tubes, are two unoriented, fimbriated fallopian tubes received on Telfa paper measuring 5. 7x 0.6 cm and 5.9 x 0.7 cm, respectively. Both tubes have violaceous smooth serosa, and the shorter tube has a pedunculated cyst, 1.0 x 0.7 x 0.7 cm with a long stalk measuring 4.2 cm in length. The lumina are stellate and unremarkable . Medical Doctor Md sections to include one-half of bisected fimbriae and cross sections are submitted as follows: . A1: Longer fallopian tube. A2: [place] fallopian tube with cyst. ([id number]) /MRV 12/13/2024 1812 Local . 01 Pathologist provided ICD-10: Z30.2 . 01 CPT . 546949 Specimen Comment: A courtesy copy of this report has been sent to [phone] Performed at: [address] [id number] MD Albino Cha MD Phone: [phone]
--- NOTE | 2024-12-12 10:23 | PM.PREOP ---
Pre-operative Note COVID-19 COVID-19 status: Not tested Interval Note History & Physical reviewed/Exam performed by Physician: Yes Changes to H&P: No
--- NOTE | 2024-12-12 11:17 | SUR.OPER ---
Lithotomy on padded OR bed, head on pillow, arms tucked padded at side. Legs secured in padded yellow fins stirrups.
[2024-12-12] MEDS: LACTATED RINGERS 1,000 ML 42 ML IV (11:53)
[2024-12-12] MEDS: SCOPOLAMINE 1 PATCH TOP (11:53)
[2024-12-12] MEDS: PREGABALIN 75 MG CAPSULE PO (11:54)
[2024-12-12] MEDS: ACETAMINOPHEN 325 MG TABLET 975 MG PO (11:54)
[2024-12-12] MEDS: FAMOTIDINE 20 MG/2 ML VIAL IV (12:03)
[2024-12-12] MEDS: ONDANSETRON 4 MG/2 ML INJ IV (12:03)
[2024-12-12] MEDS: BUPIVACAINE 0.5% W/ EPI (PF) 30 ML VIAL INJ (12:37)
--- NOTE | 2024-12-12 13:09 | P.OP_ITS ---
Operative Date/Time/Diagnoses Date of procedure: 12/12/24 Time of procedure: 12:10 Pre-op diagnosis: Request for sterilization Post-op diagnosis: same Procedure & Clinicians Procedure: Procedures Operation Date: 12/12/24 12:45 Actual Procedure Side Surgeon p Laparoscopic Salpingectomy Bilateral Parminder Tovar MD Indications: Sugar is a 34 yo , LMP uncertain due to the presence of a Mirena IUD, who presented to discuss laparoscopic sterilization. She had plan to do this in the past but instead had her Mirena IUD inserted both for contraception but also to mitigate the heavy irregular periods that she has been having. The Mirena has improved her menses somewhat but she continues to have irregular episodes of bleeding even with the Mirena in place. Patient states that she would like now to move forward with laparoscopic bilateral salpingectomy for sterilization and would like to have her IUD removed at the same time. She presents today for her scheduled surgery. Surgeon: Parminder Tovar Anesthesia Type: General Operative Notes Findings: There is extensive scarring in the anterior cul-de-sac from prior sections. The uterus itself however is normal in appearance and normal in size. The fallopian tubes and ovaries are both normal. There was no evidence of endometriosis source or scarring in the posterior cul-de-sac. The appendix is normal in appearance and the upper abdomen is normal to laparoscopic inspection. Closure Type: primary Specimen(s): left tube and right tube Estimated blood loss (mL): 5 Blood products transfused: none Procedure in detail: With the patient under satisfactory general anesthesia in the modified dorsal lithotomy position, the perineum, vagina, and abdomen were prepped and draped for IUD removal and laparoscopic bilateral salpingectomy. A pre-surgical safety time-out was then taken in accordance with [facility] Main OR protocols. The umbilicus was then infiltrated with 0.5% Marcaine with epinephrine and 1 cm vertical incision was made in the inferior aspect of the umbilicus. Veress needle was used to insufflate the abdomen with carbon dioxide and once appropriately insufflated, 5 mm bladeless trocar and sleeve were inserted through the incision. Proper placement of the sleeve was confirmed with laparoscopic visualization and insufflation of the abdomen continued. A 2nd and 3rd 5 mm laparoscopic port were placed in the right and left mid quadrants using a similar technique and using a 3 puncture technique, the abdomen and pelvis were visualized with the findings as noted above. The distal aspect of the left fallopian tube was then grasped with a grasping forceps and using a Power Seal device, fimbria ovarica was coagulated and divided the dissection using the Power Seal continuing across the mesosalpinx to the cornua where the base fallop dario tube was coagulated and divided. The left fallopian tube was then removed through one of the ports and submitted pathologic specimen. Attention was then turned to the right adnexa with distal tube grasped with a grasping forcep. The Power Seal device was then used to coagulate fimbria ovarica and the dissection was carried across the mesosalpinx to the cornua where the fallopian tube on the right side was amputated at the cornua following coagulation proximal tube the Power Seal device. Pelvis was inspected and there were no abnormalities noted following bilateral salpingectomy. The pneumoperitoneum was then vented and the ports removed from the abdominal wall. Port incisions were then closed with 4-0 Monocryl using inverted interrupted stitches and skin glue was applied. Approp riate dressings were then applied, patient was awakened, and transferred to the PACU for a period of observation after having tolerated the procedure well. Complications: none Post-operative Condition: stable Disposition: PACU Plan for aftercare: Routine postoperative care with follow-up planned for 2 weeks after surgery which time her IUD will be removed.
[2024-12-12] MEDS: OXYCODONE IR 5 MG TABLET PO ×2 (13:35→14:23)
--- NOTE | 2024-12-12 13:37 | SUR.PHASEI ---
IUD removed in PACU by Dr. Tovar, patient tolerated procedure well.
== END 2024-12-12 14:40 | disposition home or self-care (01) ==
PROVIDERS: PCP Family Medicine; Referring Provider Obstetrics & Gynecology; Visit Provider Obstetrics & Gynecology
PROC: 0UT74ZZ Resection of Bilateral Fallopian Tubes, Percutaneous Endoscopic Approach (ICD-10-PCS; CPT 58661; principal; 2024-12-12 12:45)
DX: Z30.2 Encounter for sterilization (principal); N83.8 Other noninflammatory disorders of ovary, fallopian tube and broad ligament
CPT/HCPCS: 58661; 82962; J1100; J1885; J2250; J2405; J2704; J3010; J3490